=== PATIENT | male | born 1930 | race Caucasian/White ===

== ENCOUNTER 2017-03-12 13:51 | Emergency (ER) | payer MEDICARE, BC ==
--- NOTE | 2017-03-12 14:13 | EDM.PDOC ---
ED HPI GENERAL MEDICAL PROBLEM - General Chief Complaint: Upper Extremity Injury/Pain Stated Complaint: L PINKY FINGER SWELLING Time Seen by Provider: 03/12/17 14:37 Source of Information: Reports: Patient History Limitations: Reports: No Limitations - History of Present Illness INITIAL COMMENTS - FREE TEXT/NARRATIVE: Pt arrived with swelling in the left small finger. He fell this am and jammed the left small finger. Onset: Today Duration: Hour(s): Location: Reports: Upper Extremity, Left Associated Symptoms: Reports: No Other Symptoms, Other ( Pain in left small finger. ) Left Hand Pain Score (Numeric/FACES): 5 - Related Data Allergies Allergy/AdvReac Type Severity Reaction Status Date / Time sulfamethoxazole Allergy Cannot Verified 03/12/17 14:17 [From Bactrim] Remember trimethoprim [From Bactrim] Allergy Cannot Verified 03/12/17 14:17 Remember Home Meds: Home Meds Doxylamine Succinate [Sleep Aid] 25 mg PO BEDTIME PRN 04/12/14 [History] Multivitamin [Multiple Vitamins] 1 each PO DAILY 04/12/14 [History] Propafenone HCl [Propafenone] 150 mg PO TID 04/12/14 [History] Simvastatin [Zocor] 40 mg PO BEDTIME 04/12/14 [History] Albuterol Sulfate [Proair Hfa] 2 puff IH Q2H PRN 02/22/16 [History] Doxazosin [Cardura] 2 mg PO BEDTIME 02/22/16 [History] Past Medical History HEENT History: Reports: Impaired Vision, Other (See Below) Other HEENT History: Wears hearing aids. Cardiovascular History: Reports: Afib, CAD, Heart Failure, High Cholesterol, Hypertension Respiratory History: Reports: Asthma, Sleep Apnea, Other (See Below) Other Respiratory History: Bronchiectasis Genitourinary History: Reports: Chronic Renal Insuffiency Musculoskeletal History: Reports: Osteoarthritis Endocrine/Metabolic History: Reports: Hyperthyroidism - Infectious Disease History Infectious Disease History: Reports: Chicken Pox - Past Surgical History Musculoskeletal Surgical History: Reports: Knee Replacement Social & Family History - Tobacco Use Smoking Status *Q: Former Smoker Years of Tobacco use: 40 Second Hand Smoke Exposure: No - Caffeine Use Caffeine Use: Reports: Coffee - Alcohol Use Days Per Week of Alcohol Use: 0 - Recreational Drug Use Recreational Drug Use: No Review of Systems - Review of Systems Review Of Systems: See Below Constitutional: Reports: No Symptoms Eyes: Reports: No Symptoms Ears: Reports: No Symptoms Nose: Reports: No Symptoms Mouth/Throat: Reports: No Symptoms Respiratory: Reports: No Symptoms Cardiovascular: Reports: No Symptoms GI/Abdominal: Reports: No Symptoms Musculoskeletal: Reports: Other ( Pain in left small finger. ) Skin: Reports: No Symptoms Neurological: Reports: No Symptoms Psychiatric: Reports: No Symptoms ED EXAM, GENERAL - Physical Exam Exam: See Below Free Text/Narrative:: pt fell and injured his left small finger. He has swelling and is having difficulty moving the finger. Exam Limited By: No Limitations General Appearance: Alert, Mild Distress Ears: Normal TMs Nose: Normal Inspection Throat/Mouth: Normal Inspection Head: Atraumatic Neck: Normal Inspection Respiratory/Chest: No Respiratory Distress Cardiovascular: Regular Rate, Rhythm Extremities: Other ( Left small finger is swollen He is very tender at the pp joint. An xray was obtained which showed a fracture of the proximal seond phalanx with dislocation of the fragments. Dr Mandie Allen looked at the xrays and felt like he needed to see a hand surgeon. ) Psychiatric: Normal Affect Course - Vital Signs Last Recorded V/S: Last Vital Signs Temp 36.8 C 03/12/17 14:27 Pulse 67 03/12/17 14:27 Resp 16 03/12/17 14:27 BP 177/75 H 03/12/17 14:27 Pulse Ox 95 03/12/17 14:27 - Re-Assessments/Exams Free Text/Narrative Re-Assessment/Exam: 03/12/17 15:20 xray reveals a fracture of the proximal portiopn of the second phalanx of the left small finger The articulating prtion is fragmented and displaced. The finger was splinted. Departure - Departure Time of Disposition: 15:21 Disposition: Home, Self-Care 01 Condition: Fair Clinical Impression: Finger fracture, left - Discharge Information Referrals: Eris Haynes MD [Primary Care Provider] - Forms: ED Department Discharge Care Plan Goals: tylenol or motrin for pain, elevate hand, cool pack appt with Dr Haskins Hand Surgeon [facility] [place] at [facility]-- 9 am on the .
[2017-03-12 14:28] VITALS: BP 177/75
--- NOTE | 2017-03-12 15:06 | CR ---
Dorsal avulsion fracture at the middle phalanx base. This of the fifth digit. Flexion deformity. Arth ritic change throughout the hands.
== END 2017-03-12 15:44 | disposition home or self-care (01) ==
LOC: JP.ED 13:51
DX: S62.611A Displaced fracture of proximal phalanx of left index finger, initial encounter for closed fracture (principal); I13.0 Hypertensive heart and chronic kidney disease with heart failure and stage 1 through stage 4 chronic kidney disease, or unspecified chronic kidney disease; I50.9 Heart failure, unspecified; N18.9 Chronic kidney disease, unspecified; I48.91 Unspecified atrial fibrillation; J45.909 Unspecified asthma, uncomplicated; Z88.1 Allergy status to other antibiotic agents; Z88.2 Allergy status to sulfonamides; Z79.899 Other long term (current) drug therapy; W23.0XXA Caught, crushed, jammed, or pinched between moving objects, initial encounter; Z87.891 Personal history of nicotine dependence
CPT/HCPCS: 29130; 73140-26-F4; 73140-F4; 99283-25; 99284-25

== ENCOUNTER 2017-06-03 21:46 | Inpatient (IN) | payer MEDICARE, BC ==
[2017-06-03] MEDS ORDERED: Metoprolol Tartrate 50 MG Tab PO ONE (22:05)
[2017-06-03] MEDS ORDERED: Sodium Chloride 0.9% 10 ML Syringe FLUSH PRN (22:06)
--- NOTE | 2017-06-03 22:12 | EDM.PDOC ---
ED HPI GENERAL MEDICAL PROBLEM - General Chief Complaint: Chest Pain Stated Complaint: CHEST PAINS Time Seen by Provider: 06/03/17 21:55 Source of Information: Reports: Patient, Old Records History Limitations: Reports: Other (Very poor, unreliable historian) - History of Present Illness INITIAL COMMENTS - FREE TEXT/NARRATIVE: 87 yo male here with tachycardia of about an hour's duration. Before arrival it was associated with some chest pain. The CP is now gone with resting on the cart. No SOB or diaphoresis or nausea. Has a PHx of afib and CAD. Is not normally in afib, takes propafenone to try to maintain NSR. Has coronary stents. Onset: Today Onset Date: 06/03/17 Onset Time: 21:00 Duration: Minutes: Location: Reports: Chest Quality: Reports: Dull Severity: Mild Improves with: Reports: Rest Worsens with: Reports: Other (uncertain) Context: Reports: Other (Hx of Afib and CAD) Associated Symptoms: Reports: Chest Pain. Denies: Diaphoresis, Fever/Chills, Nausea/Vomiting, Shortness of Breath, Syncope Treatments LINING SETTER: Reports: Other (see below) (none) head/ chest Pain Score (Numeric/FACES): 9 - Related Data Allergies Allergy/AdvReac Type Severity Reaction Status Date / Time sulfamethoxazole Allergy Cannot Verified 06/03/17 21:56 [From Bactrim] Remember trimethoprim [From Bactrim] Allergy Cannot Verified 06/03/17 21:56 Remember Home Meds: Home Meds Doxylamine Succinate [Sleep Aid] 25 mg PO BEDTIME PRN 04/12/14 [History] Multivitamin [Multiple Vitamins] 1 each PO DAILY 04/12/14 [History] Propafenone HCl [Propafenone] 150 mg PO TID 04/12/14 [History] Simvastatin [Zocor] 40 mg PO BEDTIME 04/12/14 [History] Albuterol Sulfate [Proair Hfa] 2 puff IH Q2H PRN 02/22/16 [History] Doxazosin [Cardura] 2 mg PO BEDTIME 02/22/16 [History] Aspirin [Lo-Dose Aspirin EC] 81 mg PO DAILY 06/03/17 [History] Ciprofloxacin/Dexamethasone [Ciprodex Otic Susp] 5 drop EARBOTH BID 06/03/17 [ History] Levothyroxine 25 mcg PO DAILY 06/03/17 [History] Past Medical History HEENT History: Reports: Impaired Vision, Other (See Below) Other HEENT History: Wears hearing aids. Cardiovascular History: Reports: Afib, CAD, Heart Failure, High Cholesterol, Hypertension Respiratory History: Reports: Asthma, Sleep Apnea, Other (See Below) Other Respiratory History: Bronchiectasis Genitourinary History: Reports: Chronic Renal Insuffiency Musculoskeletal History: Reports: Osteoarthritis Endocrine/Metabolic History: Reports: Hyperthyroidism - Infectious Disease History Infectious Disease History: Reports: Chicken Pox - Past Surgical History Musculoskeletal Surgical History: Reports: Knee Replacement Social & Family History - Tobacco Use Smoking Status *Q: Former Smoker Years of Tobacco use: 40 Used Tobacco, but Quit: Yes Month Tobacco Last Used: September Hand Smoke Exposure: No - Caffeine Use Caffeine Use: Reports: Coffee - Alcohol Use Days Per Week of Alcohol Use: 0 - Recreational Drug Use Recreational Drug Use: No ED ROS GENERAL - Review of Systems Review Of Systems: See Below Constitutional: Reports: No Symptoms HEENT: Reports: No Symptoms Respiratory: Reports: No Symptoms Cardiovascular: Reports: Chest Pain, Palpitations Endocrine: Reports: No Symptoms GI/Abdominal: Reports: No Symptoms : Reports: No Symptoms Musculoskeletal: Reports: No Symptoms Skin: Reports: No Symptoms Neurological: Reports: No Symptoms ED EXAM, GENERAL - Physical Exam Exam: See Below Exam Limited By: No Limitations General Appearance: Alert, WD/WN, No Apparent Distress Eye Exam: Bilateral Eye: Normal Inspection Ears: Normal External Exam, Normal Canal, Hearing Grossly Normal, Normal TMs Ear Exam: Bilateral Ear: Auricle Normal, Canal Normal, Other (hearing aids) Nose: Normal Inspection, Normal Mucosa, No Blood Throat/Mouth: Normal Inspection, Normal Lips, Normal Oropharynx, Normal Voice, No Airway Compromise Head: Atraumatic, Normocephalic Neck: Normal Inspection Respiratory/Chest: No Respiratory Distress, Lungs Clear, Normal Breath Sounds, No Accessory Muscle Use Cardiovascular: Regular Rate, Rhythm, Tachycardia GI/Abdominal: Normal Bowel Sounds, Soft, Non-Tender, No Distention Back Exam: Normal Inspection. No: CVA Tenderness (R), CVA Tenderness (L) Extremities: Normal Inspection, Normal Range of Motion, Non-Tender, No Pedal Edema Neurological: Alert, Oriented, CN II-XII Intact, Normal Cognition, No Motor/ Sensory Deficits Psychiatric: Normal Affect, Normal Mood Skin Exam: Warm, Dry, Intact, Normal Color, No Rash Lymphatic: No Adenopathy EKG INTERPRETATION EKG Date: 06/03/17 Time: 21:45 Rhythm: Other (? atrial tachycardia) Rate (Beats/Min): 121 [place]: Normal P-Wave: Variable QRS: Normal ST-T: Depressed QT: Prolonged Comparison: NA - No Prior EKG Course - Vital Signs Text/Narrative:: [id number] Score=5 7.2% risk of Stroke/year Last Recorded V/S: Last Vital Signs Temp 36.2 C 06/04/17 07:43 Pulse 58 L 06/04/17 10:16 Resp 12 06/04/17 07:43 BP 112/61 06/04/17 07:43 Pulse Ox 95 06/04/17 07:43 - Orders/Labs/Meds Orders: Active Orders 24 hr Category Date Time Status Saline Lock Insert [OM.PC] Routine Oth 06/03/17 22:06 Ordered EKG 12 Lead [EK] Routine Ther 06/03/17 21:58 Ordered EKG 12 Lead [EK] Routine Ther 06/03/17 23:03 Ordered Labs: Laboratory Tests 06/03/17 06/03/17 06/03/17 Range/Units 12:00 22:00 22:00 WBC 6.1 (4.5-11.0) K/uL RBC 4.15 L (4.30-5.90) M/uL Hgb 12.8 (12.0-15.0) g/dL Hct 38.1 L (40.0-54.0) % MCV 92 (80-98) fL MCH 31 (27-31) pg MCHC 34 (32-36) % Plt Count 258 (150-400) K/uL D-Dimer, Quantitative (0.0-400.0) ng/mL Sodium 139 L (140-148) mmol/L Potassium 3.8 (3.6-5.2) mmol/L Chloride 105 (100-108) mmol/L Carbon Dioxide 24 (21-32) mmol/L Anion Gap 13.8 (5.0-14.0) mmol/L BUN 21 H (7-18) mg/dL Creatinine 1.5 H (0.8-1.3) mg/dL Est Cr Clr Drug Dosing 29.60 mL/min Estimated GFR (MDRD) 44 L (>60) Glucose 111 H (74-106) mg/dL Calcium 9.0 (8.5-10.1) mg/dL Troponin I < 0.017 < 0.017 (0.000-0.056) ng/mL TSH, Ultra Sensitive 7.363 H (0.358-3.740) uIU/mL 06/03/17 Range/Units 22:00 WBC (4.5-11.0) K/uL RBC (4.30-5.90) M/uL Hgb (12.0-15.0) g/dL Hct (40.0-54.0) % MCV (80-98) fL MCH (27-31) pg MCHC (32-36) % Plt Count (150-400) K/uL D-Dimer, Quantitative 450 H (0.0-400.0) ng/mL Sodium (140-148) mmol/L Potassium (3.6-5.2) mmol/L Chloride (100-108) mmol/L Carbon Dioxide (21-32) mmol/L Anion Gap (5.0-14.0) mmol/L BUN (7-18) mg/dL Creatinine (0.8-1.3) mg/dL Est Cr Clr Drug Dosing mL/min Estimated GFR (MDRD) (>60) Glucose (74-106) mg/dL Calcium (8.5-10.1) mg/dL Troponin I (0.000-0.056) ng/mL TSH, Ultra Sensitive (0.358-3.740) uIU/mL Meds: Medications Discontinued Medications Generic Name Dose Route Start Last Admin Trade Name Freq PRN Reason Stop Dose Admin Acetaminophen 650 mg 06/04/17 02:07 Tylenol PO Q4H PRN Pain (Mild 1-3)/fever Albuterol 2.5 mg 06/04/17 02:07 Proventil Neb Soln NEB Q4H PRN Shortness Of Breath/wheezing Albuterol 0 gm 06/04/17 02:07 Ventolin Hfa INH Q2H PRN Wheezing Aspirin 324 mg 06/03/17 23:32 06/03/17 23:35 Aspirin PO 06/03/17 23:33 324 mg ONETIME ONE Administration Ciprofloxacin 0 ml 06/04/17 09:00 06/04/17 10:14 Ciloxan 0.3% Ophth Soln EARBOTH 2 drop BID KIM Administration Dexamethasone 0 ml 06/04/17 09:00 06/04/17 10:15 Maxidex 0.1% Ophth Susp .XX 2 drop BID KIM Administration Docusate Sodium 100 mg 06/04/17 02:07 Colace PO BID PRN Constipation Doxazosin Mesylate 2 mg 06/04/17 21:00 Cardura PO BEDTIME KIM Enoxaparin Sodium 80 mg 06/03/17 23:31 06/03/17 23:35 Lovenox SUBCUT 06/03/17 23:32 80 mg ONETIME ONE Administration Enoxaparin Sodium 40 mg 06/04/17 20:00 Lovenox SUBCUT DAILY@2000 [facility] Sodium Chloride 1,000 mls @ 100 mls/hr 06/04/17 02:07 06/04/17 03:19 Normal Saline IV 100 mls/hr ASDIRECTED [facility] Administration Levothyroxine Sodium 25 mcg 06/04/17 07:30 06/04/17 07:49 Levothyroxine PO 25 mcg DAILY@0730 [facility] Administration Lorazepam 1 mg 06/04/17 02:07 Ativan IV Q6H PRN Nausea/Vomiting Metoprolol Tartrate 50 mg 06/03/17 22:05 06/03/17 22:09 Lopressor PO 06/03/17 22:06 50 mg ONETIME ONE Administration Metoprolol Tartrate 5 mg 06/03/17 22:28 06/03/17 22:31 Lopressor IVPUSH 06/03/17 22:29 5 mg ONETIME ONE Administration Metoprolol Tartrate 5 mg 06/03/17 22:34 06/03/17 23:09 Lopressor IVPUSH 06/03/17 22:35 5 mg ONETIME ONE Administration Morphine Sulfate 2 mg 06/04/17 02:07 Morphine IVPUSH Q2H PRN Pain (severe 7-10) Multivitamins/Minerals 1 tab 06/04/17 09:00 06/04/17 10:16 Thera M Plus PO 1 tab DAILY [facility] Administration Non-Formulary Medication 25 mg 06/04/17 02:07 Doxylamine Succinate [Sleep Aid] PO BEDTIME PRN Insomnia Ondansetron HCl 4 mg 06/04/17 02:07 Zofran Odt PO Q6H PRN Nausea able to take PO Ondansetron HCl 4 mg 06/04/17 02:07 Zofran IV Q4H PRN Nausea/Vomiting Oxycodone HCl 5 mg 06/04/17 02:07 Oxycodone PO Q4H PRN Pain (moderate 4-6) Pantoprazole Sodium 40 mg 06/04/17 09:00 Protonix Iv IVPUSH 06/04/17 09:30 DAILY@0730 KIM Pantoprazole Sodium 40 mg 06/05/17 07:30 Protonix PO ACBREAKFAST KIM Propafenone HCl 150 mg 06/04/17 09:00 06/04/17 10:16 Rythmol PO 150 mg TID KIM Administration Simvastatin 40 mg 06/04/17 21:00 Zocor PO BEDTIME KIM Sodium Chloride 10 ml 06/03/17 22:06 06/03/17 22:10 Saline Flush FLUSH 10 ml ASDIRECTED PRN Administration Keep Vein Open Departure - Departure Time of Disposition: 00:35 Disposition: Admitted As Inpatient 67 Condition: Fair Clinical Impression: Paroxysmal atrial fibrillation with rapid ventricular response - My Orders Last 24 Hours: My Active Orders 06/03/17 21:58 EKG 12 Lead [EK] Routine 06/03/17 22:06 Saline Lock Insert [OM.PC] Routine 06/03/17 23:03 EKG 12 Lead [EK] Routine - Assessment/Plan Last 24 Hours: My Active Orders 06/03/17 21:58 EKG 12 Lead [EK] Routine 06/03/17 22:06 Saline Lock Insert [OM.PC] Routine 06/03/17 23:03 EKG 12 Lead [EK] Routine
[2017-06-03] MEDS ORDERED: Metoprolol Tartrate 5 MG/5 ML SDV IVPUSH ONE ×2 (22:28→22:34)
[2017-06-03] MEDS ORDERED: Enoxaparin 80 MG/0.8 ML Syringe SUBCUT ONE (23:31)
[2017-06-03] MEDS ORDERED: Aspirin 81 MG Tab.Chew PO ONE (23:32)
--- NOTE | 2017-06-04 01:28 | PCM.HP ---
H&P History of Present Illness - General Admit Problem/Dx: Admission Diagnosis/Problem Admission Diagnosis/Problem Atrial fibrillation Source of Information: Patient, Family (Best friend; Riana), Provider, RN History Limitations: Reports: No Limitations - History of Present Illness Initial Comments - Free Text/Narative: ER review; 87 yo male here with tachycardia of about an hour's duration. Before arrival it was associated with some chest pain. The CP is now gone with resting on the cart. No SOB or diaphoresis or nausea. Has a PHx of afib and CAD. Is not normally in afib, takes propafenone to try to maintain NSR. Has coronary stents placed 20 years ago. Context: Reports: Other (Hx of Afib and CAD) Associated Symptoms: Reports: Chest Pain. Denies: Diaphoresis, Fever/Chills, Nausea/Vomiting, Shortness of Breath, Syncope Treatments HAT CHECKER: Reports: none Pain Score Numeric/FACES: 9 Onset of Symptoms: Reports: Sudden Symptom Onset Date: 06/03/17 Symptom Onset Time: 21:00 Duration of Symptoms: Reports: Hour(s):, Other (resolved after arrival to ER) Location: Reports: Chest (reports fast heart rate with chest pain.) Quality: Reports: Ache Improves with: Reports: None Worsens with: Reports: None Associated Symptoms: Reports: Chest Pain (with fast heart rate) head/ chest Pain Score (Numeric/FACES): 9 - Related Data Allergies/Adverse Reactions: Allergies Allergy/AdvReac Type Severity Reaction Status Date / Time sulfamethoxazole Allergy Cannot Verified 06/03/17 21:56 [From Bactrim] Remember trimethoprim [From Bactrim] Allergy Cannot Verified 06/03/17 21:56 Remember Home Medications: Home Meds Doxylamine Succinate [Sleep Aid] 25 mg PO BEDTIME PRN 04/12/14 [History] Multivitamin [Multiple Vitamins] 1 each PO DAILY 04/12/14 [History] Propafenone HCl [Propafenone] 150 mg PO TID 04/12/14 [History] Simvastatin [Zocor] 40 mg PO BEDTIME 04/12/14 [History] Albuterol Sulfate [Proair Hfa] 2 puff IH Q2H PRN 02/22/16 [History] Doxazosin [Cardura] 2 mg PO BEDTIME 02/22/16 [History] Aspirin [Lo-Dose Aspirin EC] 81 mg PO DAILY 06/03/17 [History] Ciprofloxacin/Dexamethasone [Ciprodex Otic Susp] 5 drop EARBOTH BID 06/03/17 [ History] Levothyroxine [Levothyroxine] 25 mcg PO DAILY 06/03/17 [History] Past Medical History HEENT History: Reports: Impaired Vision, Other (See Below) Other HEENT History: Wears hearing aids. Cardiovascular History: Reports: Afib, CAD, Heart Failure, High Cholesterol, Hypertension Respiratory History: Reports: Asthma, Sleep Apnea, Other (See Below) Other Respiratory History: Bronchiectasis Gastrointestinal History: Reports: Hemorrhoids Genitourinary History: Reports: Chronic Renal Insuffiency Musculoskeletal History: Reports: Osteoarthritis Endocrine/Metabolic History: Reports: Hyperthyroidism - Infectious Disease History Infectious Disease History: Reports: Chicken Pox - Past Surgical History Musculoskeletal Surgical History: Reports: Knee Replacement Social & Family History - Tobacco Use Smoking Status *Q: Former Smoker Years of Tobacco use: 40 Used Tobacco, but Quit: Yes Month Tobacco Last Used: September Second Hand Smoke Exposure: No - Caffeine Use Caffeine Use: Reports: Coffee Caffeine Use Comment: 2-3 cups of coffee daily - Alcohol Use Days Per Week of Alcohol Use: 0 - Recreational Drug Use Recreational Drug Use: No - Living Situation & Occupation Living situation: Reports: , Alone ( of 65 years 2015, still misses her. has two adopt sons. one in [place], one in [facility], he does not have contact with. Lives alone in [place], [place]. 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 wears left hearing aide.) Pulmonary: Reports: No Symptoms Cardiovascular: Reports: No Symptoms Gastrointestinal: Reports: No Symptoms Genitourinary: Reports: No Symptoms Musculoskeletal: Reports: Back Pain (intermittent back spasm/pain, resolves with rest.) Skin: Reports: No Symptoms Psychiatric: Reports: No Symptoms Neurological: Reports: No Symptoms Hematologic/Lymphatic: Reports: No Symptoms Immunologic: Reports: No Symptoms Exam - Exam Exam: See Below - Vital Signs Vital Signs: Last Vital Signs Temp 35.5 C 06/03/17 21:53 Pulse 114 H 06/03/17 23:09 Resp 16 06/04/17 01:20 BP 114/59 L 06/04/17 01:20 Pulse Ox 98 06/04/17 01:20 Weight: 81.7 kg - Exam Quality Assessment: Supplemental Oxygen, DVT Prophylaxis General: Alert, Oriented, Cooperative HEENT: PERRLA, Conjunctiva Clear, Mucosa Moist & [place], Nares Patent, Pupils Equal, Pupils Reactive Neck: Supple, Trachea Midline Lungs: Clear to Auscultation, Normal Respiratory Effort Cardiovascular: Irregular Rhythm GI/Abdominal Exam: Normal Bowel Sounds, Soft, Non-Tender, No Organomegaly, No Distention, No Abnormal Bruit, No Mass (Male) Exam: Deferred Rectal (Males) Exam: Deferred Back Exam: Normal Inspection Extremities: Normal Inspection, Normal Range of Motion, Non-Tender, No Pedal Edema, Normal Capillary Refill Peripheral Pulses: 2+: Dorsalis Pedis (L), Dorsalis Pedis (R) Skin: Warm, Dry, Intact Neurological: Cranial Nerves Intact, Reflexes Equal Bilateral, Strength Equal Bilateral Neuro Extensive - Mental Status: Alert, Oriented x3, Normal Mood/Affect, Normal Cognition Neuro Extensive - Motor, Sensory, Reflexes: Normal Gait (shuffling gait. ) Psychiatric: Alert, Normal Affect, Normal Mood - Patient Data Lab Results Last 24 hrs: Laboratory Results - last 24 hr 06/03/17 06/03/17 06/03/17 Range/Units 12:00 22:00 22:00 WBC 6.1 (4.5-11.0) K/uL RBC 4.15 L (4.30-5.90) M/uL Hgb 12.8 (12.0-15.0) g/dL Hct 38.1 L (40.0-54.0) % MCV 92 (80-98) fL MCH 31 (27-31) pg MCHC 34 (32-36) % Plt Count 258 (150-400) K/uL D-Dimer, Quantitative (0.0-400.0) ng/mL Sodium 139 L (140-148) mmol/L Potassium 3.8 (3.6-5.2) mmol/L Chloride 105 (100-108) mmol/L Carbon Dioxide 24 (21-32) mmol/L Anion Gap 13.8 (5.0-14.0) mmol/L BUN 21 H (7-18) mg/dL Creatinine 1.5 H (0.8-1.3) mg/dL Est Cr Clr Drug Dosing 29.60 mL/min Estimated GFR (MDRD) 44 L (>60) Glucose 111 H (74-106) mg/dL Calcium 9.0 (8.5-10.1) mg/dL Troponin I < 0.017 < 0.017 (0.000-0.056) ng/mL TSH, Ultra Sensitive 7.363 H (0.358-3.740) uIU/mL 06/03/17 Range/Units 22:00 WBC (4.5-11.0) K/uL RBC (4.30-5.90) M/uL Hgb (12.0-15.0) g/dL Hct (40.0-54.0) % MCV (80-98) fL MCH (27-31) pg MCHC (32-36) % Plt Count (150-400) K/uL D-Dimer, Quantitative 450 H (0.0-400.0) ng/mL Sodium (140-148) mmol/L Potassium (3.6-5.2) mmol/L Chloride (100-108) mmol/L Carbon Dioxide (21-32) mmol/L Anion Gap (5.0-14.0) mmol/L BUN (7-18) mg/dL Creatinine (0.8-1.3) mg/dL Est Cr Clr Drug Dosing mL/min Estimated GFR (MDRD) (>60) Glucose (74-106) mg/dL Calcium (8.5-10.1) mg/dL Troponin I (0.000-0.056) ng/mL TSH, Ultra Sensitive (0.358-3.740) uIU/mL Result Diagrams: 06/03/17 22:00 06/03/17 22:00 EKG INTERPRETATION Rhythm: NSR *Q Meaningful Use (ADM) - VTE *Q VTE Criteria *Q: - Stroke *Q Stroke Criteria *Q: - AMI *Q AMI Criteria *Q: - Problem List (1) Atrial fibrillation SNOMED Code(s): 67357930 ICD Code: I48.91 - UNSPECIFIED ATRIAL FIBRILLATION Status: Chronic Priority: High Current Visit: Yes Qualifiers: Atrial fibrillation type: unspecified Qualified Code(s): I48.91 - Unspecified atrial fibrillation (2) Benign essential hypertension SNOMED Code(s): 8325485 ICD Code: I10 - ESSENTIAL (PRIMARY) HYPERTENSION Status: Chronic Priority : Medium Current Visit: No (3) Congestive heart failure (CHF) SNOMED Code(s): 76262081 ICD Code: I50.9 - HEART FAILURE, UNSPECIFIED Status: Chronic Priority: Medium Current Visit: No Qualifiers: Congestive heart failure type: unspecified Congestive heart failure chronicity: unspecified Qualified Code(s): I50.9 - Heart failure, unspecified (4) Coronary artery disease SNOMED Code(s): 37790992 ICD Code: I25.10 - ATHSCL HEART DISEASE OF [place] CORONARY ARTERY W/O ANG PCTRS Status: Chronic Priority: High Current Visit: No (5) CRI (chronic renal insufficiency) SNOMED Code(s): 788323645 ICD Code: N18.9 - CHRONIC KIDNEY DISEASE, UNSPECIFIED Status: Chronic Current Visit: No Problem List Initiated/Reviewed/Updated: Yes Orders Last 24hrs: Active Orders 24 hr Category Date Time Status Patient Status Manage Transfer [TRANSFER] Routine ADT 06/04/17 01:10 Active Cardiac Monitoring [RC] .As Directed Care 06/03/17 21:58 Active EKG Documentation Completion [RC] ASDIRECTED Care 06/03/17 21:58 Active EKG Documentation Completion [RC] ASDIRECTED Care 06/03/17 23:03 Active Sodium Chloride 0.9% [Saline Flush] Med 06/03/17 22:06 Active 10 ml FLUSH ASDIRECTED PRN Saline Lock Insert [OM.PC] Routine Oth 06/03/17 22:06 Ordered Resuscitation Status Routine Resus Stat 06/04/17 01:13 Ordered EKG 12 Lead [EK] Routine Ther 06/03/17 21:58 Ordered EKG 12 Lead [EK] Routine Ther 06/03/17 23:03 Ordered Medication Orders Sodium Chloride (Saline Flush) 10 ml FLUSH ASDIRECTED PRN PRN Reason: Keep Vein Open Last Admin: 06/03/17 22:10 Dose: 10 ml Assessment/Plan Comment:: ssessment/Plan Comment:: Assessment and plan - 87 yo male here with tachycardia of about an hour's duration. Before arrival it was associated with some chest pain. The CP is now gone with resting on the cart. No SOB or diaphoresis or nausea. Has a PHx of afib and CAD. Is not normally in afib, takes propafenone to try to maintain NSR. Has coronary stents placed 20 years ago. In ER, noted to be in Afib with RVR, rate 120's with chest pressure. Given Metoprolol 50mg po, Metoprolol 5mg IV x 2. Rate reduced to 70's-60's the intermittent tachycardia rate of 110's to 120's. given Lovenox 80mg subcut. At time of transfer tele shows sinus rhythm with rate 70's, no further chest pressure. labs; negative troponin x 2. elevated TSH. Plan: admit for monitoring, further evaluation of A-fib. A Fib, Coronary artery disease, CHF, HTN - -close monitoring of vital signs -telemetry -ordered home medication -IV fluids NS 100 ml/hr over night. -am labs: CBC, BMP, TROPONIN, EKG Hypothyroidism -restart Synthyroid 25mcg daily CRI chronic renal insufficiency -cr. 1.5, GFR 29.6, BUN 21 -gentle over night rehydration then re assess in am Maintenance issues - -home meds ordered - DVT prophylaxis - Lovenox 40mg subcut - GI prophylaxis - IV Protonix 40mg - Nutrition - regular diet - Hernandez catheter - not indicated -consult to OT for discharge planning CODE STATUS - FULL Admission justification - This patient will be admitted for inpatient services and is medically appropriate meeting medical necessity for inpatient admission as outlined in my documentation. I reasonably expect the patient will require inpatient services that span a period time over 2 midnights. I reasonably expect this patient to be discharged or transferred within 96 hours [facility]. Disposition - anticipate discharge back to home after the hospital stay Primary care physician - Dr. Haynes Hospitialist: Arturo Méndez M.D.
[2017-06-04] MEDS ORDERED: Ondansetron 4 MG/2 ML SDV IV PRN (02:07)
[2017-06-04] MEDS ORDERED: Docusate Sodium 100 MG Cap PO PRN (02:07)
[2017-06-04] MEDS ORDERED: LORazepam 2 MG/ML MDV IV PRN (02:07)
[2017-06-04] MEDS ORDERED: Albuterol 8 GM Inhaler INH PRN (02:07)
[2017-06-04] MEDS ORDERED: DOXYLAMINE SUCCINATE 25 MG PO PRN (02:07)
[2017-06-04] MEDS ORDERED: Acetaminophen 325 MG Tab PO PRN (02:07)
[2017-06-04] MEDS ORDERED: Morphine 2 MG/ML Syringe IVPUSH PRN (02:07)
[2017-06-04] MEDS ORDERED: Ondansetron 4 MG Tab.DIS PO PRN (02:07)
[2017-06-04] MEDS ORDERED: Albuterol 0.083% 2.5 MG/3 ML Neb Soln NEB PRN (02:07)
[2017-06-04] MEDS ORDERED: oxyCODONE 5 MG Tab PO PRN (02:07)
[2017-06-04] MEDS ORDERED: Sodium Chloride 0.9% 1,000 ML IV SCH (02:07)
[2017-06-04] MEDS ORDERED: Levothyroxine 25 MCG Tab PO SCH (07:30)
[2017-06-04 07:46] VITALS: BP 112/61
--- NOTE | 2017-06-04 08:58 | PCM.DCSUM1 ---
Discharge Summary - Hospital Course Brief History: 87-year-old male with history of remote coronary artery disease and paroxysmal atrial fibrillation who presented with palpitations, chest pain and dizziness. In the emergency room he was in atrial fibrillation with a rapid ventricular response and was admitted for management. - Discharge Data Discharge Date: 06/04/17 Discharge Disposition: Home, Self-Care 01 Condition: Good - Discharge Diagnosis/Problem(s) (1) Paroxysmal atrial fibrillation with rapid ventricular response SNOMED Code(s): 353097613 ICD Code: I48.0 - PAROXYSMAL ATRIAL FIBRILLATION Status: Acute Current Visit: Yes (2) Coronary artery disease SNOMED Code(s): 64843734 ICD Code: I25.10 - ATHSCL HEART DISEASE OF [place] CORONARY ARTERY W/O ANG PCTRS Status: Chronic Priority: High Current Visit: No Qualifiers: Coronary Disease-Associated Artery/Lesion type: [place] artery [place] vs. transplanted heart: [place] heart Associated angina: with unspecified angina Qualified Code(s): I25.119 - Atherosclerotic heart disease of [place] coronary artery with unspecified angina pectoris (3) CKD (chronic kidney disease), stage III SNOMED Code(s): 653683317 ICD Code: N18.3 - CHRONIC KIDNEY DISEASE, STAGE 3 (MODERATE) Status: Chronic Current Visit: Yes - Patient Summary/Data Consults: Consultations 06/04/17 02:07 OT Evaluation and Treatment [CONS] Routine Please Evaluate and Treat. OT Reason for Consult: Discharge Planning This query below is only for informational purposes and is not editable. Hospital Course: Art presented to the emergency room last night with palpitations, chest pressure and dizziness. Workup in the emergency room revealed paroxysmal atrial fibrillation with a rapid ventricular response. He received several doses of metoprolol in the emergency room and did eventually slow down his heart rate. With a slower heart rate he had resolution of the symptoms mentioned above. He remained in atrial fibrillation and the plan was for admission and additional management. Troponin was normal and no strong evidence for ischemia was noted on the EKG. Shortly after admission to the hospital he converted to a normal sinus rhythm. He has remained in this rhythm overnight. Serial troponin levels have been undetectable. Repeat EKG did not show evidence for ischemia. Laboratory studies have all been stable. He has not had recurrence of his symptoms since admission. He has been ambulating in the bates with no symptoms of chest pressure or dyspnea. He feels back to his usual self this morning. I suspect his episode of atrial fibrillation was related to overexertion after a long day of travel yesterday with much more walking than usual to make it to his doctor's appointments. He is asymptomatic with activity at this time. I believe he is safe for discharge to home. He remains in sinus rhythm. He will follow-up as needed if symptoms return. No medication changes were made. Augustine was admitted to inpatient status with the idea that treating his atrial fibrillation and potentially additional workup would require a hospital stay that would span at least 2 midnights. He converted to sinus rhythm shortly after admission and has improved much more quickly than anticipated. He is ready for discharge to home after only a 1 night hospital stay. - Patient Instructions Diet: Heart Healthy Diet Activity: As Tolerated, Rest and Relax Today Driving: May Drive Today Showering/Bathing: May Shower Notify Provider of: Fever, Increased Pain Other/Special Instructions: 1. You were in the hospital for management of paroxysmal atrial fibrillation with a rapid ventricular response. Your heart has returned to a normal rhythm with treatment provided in the emergency room. I suspect the abnormal heart rhythm was caused by activity that was greater than usual yesterday. There was no evidence of a heart attack. I would recommend that you rest and relax today and you may resume your usual activities tomorrow. 2. Continue your usual home medications as previously prescribed. 3. Please seek medical attention if you develop fever greater than 101, you develop chest pain or have significant shortness of breath - Discharge Plan Home Medications: Home Meds Doxylamine Succinate [Sleep Aid] 25 mg PO BEDTIME PRN 04/12/14 [History] Multivitamin [Multiple Vitamins] 1 each PO DAILY 04/12/14 [History] Propafenone HCl [Propafenone] 150 mg PO TID 04/12/14 [History] Simvastatin [Zocor] 40 mg PO BEDTIME 04/12/14 [History] Albuterol Sulfate [Proair Hfa] 2 puff IH Q2H PRN 02/22/16 [History] Doxazosin [Cardura] 2 mg PO BEDTIME 02/22/16 [History] Aspirin [Lo-Dose Aspirin EC] 81 mg PO DAILY 06/03/17 [History] Ciprofloxacin/Dexamethasone [Ciprodex Otic Susp] 5 drop EARBOTH BID 06/03/17 [ History] Levothyroxine 25 mcg PO DAILY 06/03/17 [History] Patient Handouts: Atrial Fibrillation, [id number] Referrals: Eris Haynes MD [Primary Care Provider] - (f/u as needed after the hospital stay) - Discharge Summary/Plan Comment DC Time >30 min.: No (25) - Patient Data Vitals - Most Recent: Last Vital Signs Temp 36.2 C 06/04/17 07:43 Pulse 58 L 06/04/17 07:43 Resp 12 06/04/17 07:43 BP 112/61 06/04/17 07:43 Pulse Ox 95 06/04/17 07:43 Weight - Most Recent: 81.7 kg I&O - Last 24 hours: Intake & Output 06/03/17 06/04/17 06/04/17 22:59 06:59 14:59 Intake Total 260 240 Output Total 200 Balance 260 40 Lab Results - Last 24 hrs: Laboratory Results - last 24 hr 06/04/17 06/04/17 06/04/17 Range/Units 04:00 04:00 04:00 WBC 5.5 (4.5-11.0) K/uL RBC 3.90 L (4.30-5.90) M/uL Hgb 11.7 L (12.0-15.0) g/dL Hct 36.0 L (40.0-54.0) % MCV 92 (80-98) fL MCH 30 (27-31) pg MCHC 33 (32-36) % Plt Count 244 (150-400) K/uL Neut % (Auto) 44 (36-66) % Lymph % (Auto) 30 (24-44) % [place] % (Auto) 13 H (2-6) % Eos % (Auto) 10 H (2-4) % Baso % (Auto) 3 H (0-1) % PT 11.1 (9.5-12.0) sec INR 1.04 (0.80-1.20) Sodium 140 (140-148) mmol/L Potassium 4.0 (3.6-5.2) mmol/L Chloride 108 (100-108) mmol/L Carbon Dioxide 25 (21-32) mmol/L Anion Gap 11.0 (5.0-14.0) mmol/L BUN 24 H (7-18) mg/dL Creatinine 1.4 H (0.8-1.3) mg/dL Est Cr Clr Drug Dosing 31.93 mL/min Estimated GFR (MDRD) 48 L (>60) Glucose 100 (74-106) mg/dL Calcium 8.7 (8.5-10.1) mg/dL Magnesium 2.0 (1.8-2.4) mg/dL Troponin I < 0.017 (0.000-0.056) ng/mL Free T4 (0.76-1.46) ng/dL 06/04/17 Range/Units 08:31 WBC (4.5-11.0) K/uL RBC (4.30-5.90) M/uL Hgb (12.0-15.0) g/dL Hct (40.0-54.0) % MCV (80-98) fL MCH (27-31) pg MCHC (32-36) % Plt Count (150-400) K/uL Neut % (Auto) (36-66) % Lymph % (Auto) (24-44) % [place] % (Auto) (2-6) % Eos % (Auto) (2-4) % Baso % (Auto) (0-1) % PT (9.5-12.0) sec INR (0.80-1.20) Sodium (140-148) mmol/L Potassium (3.6-5.2) mmol/L Chloride (100-108) mmol/L Carbon Dioxide (21-32) mmol/L Anion Gap (5.0-14.0) mmol/L BUN (7-18) mg/dL Creatinine (0.8-1.3) mg/dL Est Cr Clr Drug Dosing mL/min Estimated GFR (MDRD) (>60) Glucose (74-106) mg/dL Calcium (8.5-10.1) mg/dL Magnesium (1.8-2.4) mg/dL Troponin I (0.000-0.056) ng/mL Free T4 0.96 (0.76-1.46) ng/dL Med Orders - Current: Current Medications Acetaminophen (Tylenol) 650 mg PO Q4H PRN PRN Reason: Pain (Mild 1-3)/fever Albuterol (Proventil Neb Soln) 2.5 mg NEB Q4H PRN PRN Reason: Shortness Of Breath/wheezing Albuterol (Ventolin Hfa) 0 gm INH Q2H PRN PRN Reason: Wheezing Ciprofloxacin (Ciloxan 0.3% Ophth Soln) 0 ml EARBOTH BID KIM Dexamethasone (Maxidex 0.1% Ophth Susp) 0 ml .XX BID [facility] Docusate Sodium (Colace) 100 mg PO BID PRN PRN Reason: Constipation Doxazosin Mesylate (Cardura) 2 mg PO BEDTIME [facility] Enoxaparin Sodium (Lovenox) 40 mg SUBCUT DAILY@1999 [facility] Levothyroxine Sodium (Levothyroxine) 25 mcg PO DAILY@729 [facility] Last Admin: 06/04/17 07:49 Dose: 25 mcg Morphine Sulfate (Morphine) 2 mg IVPUSH Q2H PRN PRN Reason: Pain (severe 7-10) Multivitamins/Minerals (Thera M Plus) 1 tab PO DAILY [facility] Non-Formulary Medication (Doxylamine Succinate [Sleep Aid]) 25 mg PO BEDTIME PRN PRN Reason: Insomnia Ondansetron HCl (Zofran Odt) 4 mg PO Q6H PRN PRN Reason: Nausea able to take PO Ondansetron HCl (Zofran) 4 mg IV Q4H PRN PRN Reason: Nausea/Vomiting Oxycodone HCl (Oxycodone) 5 mg PO Q4H PRN PRN Reason: Pain (moderate 4-6) Pantoprazole Sodium (Protonix) 40 mg PO ACBREAKFAST [facility] Propafenone HCl (Rythmol) 150 mg PO TID [facility] Simvastatin (Zocor) 40 mg PO BEDTIME [facility] Sodium Chloride (Saline Flush) 10 ml FLUSH ASDIRECTED PRN PRN Reason: Keep Vein Open Last Admin: 06/03/17 22:10 Dose: 10 ml Discontinued Medications Aspirin (Aspirin) 324 mg PO ONETIME ONE Stop: 06/03/17 23:33 Last Admin: 06/03/17 23:35 Dose: 324 mg Enoxaparin Sodium (Lovenox) 80 mg SUBCUT ONETIME ONE Stop: 06/03/17 23:32 Last Admin: 06/03/17 23:35 Dose: 80 mg Sodium Chloride (Normal Saline) 1,000 mls @ 100 mls/hr IV ASDIRECTED [facility] Last Admin: 06/04/17 03:19 Dose: 100 mls/hr Lorazepam (Ativan) 1 mg IV Q6H PRN PRN Reason: Nausea/Vomiting Metoprolol Tartrate (Lopressor) 50 mg PO ONETIME ONE Stop: 06/03/17 22:06 Last Admin: 06/03/17 22:09 Dose: 50 mg Metoprolol Tartrate (Lopressor) 5 mg IVPUSH ONETIME ONE Stop: 06/03/17 22:29 Last Admin: 06/03/17 22:31 Dose: 5 mg Metoprolol Tartrate (Lopressor) 5 mg IVPUSH ONETIME ONE Stop: 06/03/17 22:35 Last Admin: 06/03/17 23:09 Dose: 5 mg Pantoprazole Sodium (Protonix Iv) 40 mg IVPUSH DAILY@0730 [facility] Stop: 06/04/17 09:30 - Exam Quality Assessment: Denies: Supplemental Oxygen General: Reports: Alert, Oriented, Cooperative, No Acute Distress Lungs: Reports: Normal Respiratory Effort Cardiovascular: Reports: Regular Rate, Regular Rhythm GI/Abdominal Exam: No Distention Extremities: No Pedal Edema Psy/Mental Status: Reports: Alert, Normal Affect *Q Meaningful Use (DIS) - VTE *Q VTE Criteria *Q: - Stroke *Q Stroke Criteria *Q: - AMI *Q AMI Criteria *Q:
[2017-06-04] MEDS ORDERED: Pantoprazole 40 MG Vial IVPUSH SCH (09:00)
[2017-06-04] MEDS ORDERED: Dexamethasone 0.1% Ophth Susp 5 ML Bottle SCH (09:00)
[2017-06-04] MEDS ORDERED: Ciprofloxacin 0.3% Ophth Soln 5 ML Bottle EARBOTH SCH (09:00)
[2017-06-04] MEDS ORDERED: Multivitamins with Iron/Calcium/Folic Acid/Minerals Tab PO SCH (09:00)
[2017-06-04] MEDS ORDERED: Enoxaparin 40 MG/0.4 ML Syringe SUBCUT SCH (20:00)
[2017-06-04] MEDS ORDERED: Simvastatin 20 MG Tab PO SCH (21:00)
[2017-06-04] MEDS ORDERED: Doxazosin 4 MG Tab PO SCH (21:00)
[2017-06-05] MEDS ORDERED: Pantoprazole 40 MG Tab.CR PO SCH (07:30)
== END 2017-06-04 10:45 | disposition home or self-care (01) | DRG 309 ==
LOC: JP.ED 21:46 → JP.MS 06-04 01:10
PROVIDERS: ADMIT Internal Medicine; ATTEND Internal Medicine
DX: I48.0 Paroxysmal atrial fibrillation (principal); I13.0 Hypertensive heart and chronic kidney disease with heart failure and stage 1 through stage 4 chronic kidney disease, or unspecified chronic kidney disease; N18.3 Chronic kidney disease, stage 3 (moderate); I25.119 Atherosclerotic heart disease of native coronary artery with unspecified angina pectoris; Z87.891 Personal history of nicotine dependence; E78.00 Pure hypercholesterolemia, unspecified; E03.9 Hypothyroidism, unspecified; R07.9 Chest pain, unspecified; R00.0 Tachycardia, unspecified; Z95.5 Presence of coronary angioplasty implant and graft; J45.909 Unspecified asthma, uncomplicated; H54.7 Unspecified visual loss; G47.30 Sleep apnea, unspecified; Z96.659 Presence of unspecified artificial knee joint; Z88.8 Allergy status to other drugs, medicaments and biological substances; Z79.82 Long term (current) use of aspirin; I50.9 Heart failure, unspecified
CPT/HCPCS: 36415; 80048; 84443; 84484; 85027; 85379; 93005 ×2; A9270 ×2; J1650; J7050; 83735; 84439; 85025; 85610; 96372; 96374; 96376; 97165-GO; 99285; 99285-25; J3490; J7040

== ENCOUNTER 2017-06-26 15:25 | Emergency (ER) | payer MEDICARE, BC ==
[2017-06-26] MEDS ORDERED: Diltiazem 25 MG/5 ML SDV IVPUSH ONE (15:44)
[2017-06-26] MEDS ORDERED: Sodium Chloride 0.9% 10 ML Syringe FLUSH PRN (15:44)
[2017-06-26 17:34] VITALS: BP 114/60
--- NOTE | 2017-06-26 17:54 | EDM.PDOC ---
ED HPI GENERAL MEDICAL PROBLEM - General Chief Complaint: Chest Pain Stated Complaint: CHEST PAIN Time Seen by Provider: 06/26/17 15:43 Source of Information: Reports: Patient, Other (Dr. Méndez) History Limitations: Reports: No Limitations - History of Present Illness INITIAL COMMENTS - FREE TEXT/NARRATIVE: This patient comes in complaining of chest pain off and on with activity today. Does have a history of atrial fibrillation. He just has very mild chest pain right now. A denies taking any warfarin. Patient had a exercise tolerance test Venkatesh can test yesterday which showed a small reversible defect in the inferior wall. There is a small fixed defect in the anterior septal wall. He was seen about a month ago hospitalized for A. fib which converted spontaneously when was discharged home. He's been seen in the past by Dr. Darling in [place]. This patient was put on propafenone for A. fib control. Chest Pain Score (Numeric/FACES): 10 - Related Data Allergies Allergy/AdvReac Type Severity Reaction Status Date / Time sulfamethoxazole Allergy Cannot Verified 06/25/17 09:31 [From Bactrim] Remember trimethoprim [From Bactrim] Allergy Cannot Verified 06/25/17 09:31 Remember Home Meds: Home Meds Doxylamine Succinate [Sleep Aid] 25 mg PO BEDTIME PRN 04/12/14 [History] Multivitamin [Multiple Vitamins] 1 each PO DAILY 04/12/14 [History] Propafenone HCl [Propafenone] 150 mg PO TID 04/12/14 [History] Simvastatin [Zocor] 40 mg PO BEDTIME 04/12/14 [History] Albuterol Sulfate [Proair Hfa] 2 puff IH Q2H PRN 02/22/16 [History] Doxazosin [Cardura] 2 mg PO BEDTIME 02/22/16 [History] Aspirin [Lo-Dose Aspirin EC] 81 mg PO DAILY 06/03/17 [History] Ciprofloxacin/Dexamethasone [Ciprodex Otic Susp] 5 drop EARBOTH BID 06/03/17 [ History] Levothyroxine 25 mcg PO DAILY 06/03/17 [History] Naproxen [Naprosyn] 375 mg PO DAILY 06/19/17 [History] Past Medical History HEENT History: Reports: Impaired Vision, Other (See Below) Other HEENT History: Wears hearing aids. Cardiovascular History: Reports: Afib, CAD, Heart Failure, High Cholesterol, Hypertension Respiratory History: Reports: Asthma, Sleep Apnea, Other (See Below) Other Respiratory History: Bronchiectasis Gastrointestinal History: Reports: Hemorrhoids Genitourinary History: Reports: Chronic Renal Insuffiency Musculoskeletal History: Reports: Osteoarthritis Endocrine/Metabolic History: Reports: Hyperthyroidism - Infectious Disease History Infectious Disease History: Reports: Measles, Scarlet Fever - Past Surgical History Musculoskeletal Surgical History: Reports: Knee Replacement Dermatological Surgical History: Reports: Skin Biopsy, Skin Graft Social & Family History - Tobacco Use Smoking Status *Q: Former Smoker Years of Tobacco use: 45 Packs/Tins Daily: 1 Used Tobacco, but Quit: Yes Month Tobacco Last Used: Second Hand Smoke Exposure: Yes - Caffeine Use Caffeine Use: Reports: Coffee Caffeine Use Comment: 2-3 cups of coffee daily - Alcohol Use Days Per Week of Alcohol Use: 0 - Recreational Drug Use Recreational Drug Use: No - Living Situation & Occupation Living situation: Reports: , Alone ( of 65 years 2015, still misses her. has two adopt sons. one in [place], one [facility], he does not have contact with. Lives alone in [place], [place]. 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 ED EXAM, GENERAL - Physical Exam Exam: See Below Exam Limited By: No Limitations General Appearance: Alert, WD/WN, No Apparent Distress Eye Exam: Bilateral Eye: Normal Inspection Nose: Normal Inspection Throat/Mouth: Normal Oropharynx Head: Atraumatic Neck: Normal Inspection Respiratory/Chest: Lungs Clear Cardiovascular: Irregularly Irregular (Heart rate running in the 120 up to 1:30 range) Peripheral Pulses: 2+: Radial (L) (Pulse rate is only about 60 or 70 secondary to the A. fib. Monitor showing about 120), Radial (R) GI/Abdominal: Non-Tender Back Exam: Normal Inspection Extremities: Normal Inspection Neurological: Alert, Oriented Course - Vital Signs Last Recorded V/S: Last Vital Signs Temp 36.4 C 06/26/17 16:11 Pulse 70 06/26/17 17:34 Resp 10 L 03/02/18 17:34 BP 114/60 06/26/17 17:34 Pulse Ox 94 L 06/26/17 16:51 - Orders/Labs/Meds Orders: Active Orders 24 hr Category Date Time Status EKG Documentation Completion [RC] ASDIRECTED Care 06/26/17 15:44 Active Sodium Chloride 0.9% [Saline Flush] Med 06/26/17 15:44 Active 10 ml FLUSH ASDIRECTED PRN Saline Lock Insert [OM.PC] Urgent Oth 06/26/17 15:43 Ordered EKG 12 Lead [EK] Urgent Ther 06/26/17 15:43 Ordered Medication Orders Sodium Chloride (Saline Flush) 10 ml FLUSH ASDIRECTED PRN PRN Reason: Keep Vein Open Last Admin: 06/26/17 15:58 Dose: 10 ml Labs: Laboratory Tests 06/26/17 06/26/17 06/26/17 Range/Units 15:54 15:54 15:54 WBC 5.1 (4.5-11.0) K/uL RBC 4.11 L (4.30-5.90) M/uL Hgb 12.2 (12.0-15.0) g/dL Hct 37.5 L (40.0-54.0) % MCV 91 (80-98) fL MCH 30 (27-31) pg MCHC 33 (32-36) % Plt Count 265 (150-400) K/uL Neut % (Auto) 55 (36-66) % Lymph % (Auto) 27 (24-44) % [place] % (Auto) 8 H (2-6) % Eos % (Auto) 8 H (2-4) % Baso % (Auto) 2 H (0-1) % Sodium 142 (140-148) mmol/L Potassium 3.6 (3.6-5.2) mmol/L Chloride 107 (100-108) mmol/L Carbon Dioxide 25 (21-32) mmol/L Anion Gap 10.0 (5.0-14.0) mmol/L BUN 16 (7-18) mg/dL Creatinine 1.6 H (0.8-1.3) mg/dL Est Cr Clr Drug Dosing 27.75 mL/min Estimated GFR (MDRD) 41 L (>60) Glucose 195 H (74-106) mg/dL Calcium 8.6 (8.5-10.1) mg/dL Total Bilirubin 0.3 (0.2-1.0) mg/dL AST 17 (15-37) U/L ALT 24 (12-78) U/L Alkaline Phosphatase 59 (46-116) U/L Troponin I 0.026 (0.000-0.056) ng/mL Total Protein 7.3 (6.4-8.2) g/dL Albumin 2.8 L (3.4-5.0) g/dL Globulin 4.5 H (2.3-3.5) g/dL Albumin/Globulin Ratio 0.6 L (1.2-2.2) TSH, Ultra Sensitive 4.331 H (0.358-3.740) uIU/mL Meds: Medications Generic Name Dose Route Start Last Admin Trade Name Freq PRN Reason Stop Dose Admin Sodium Chloride 10 ml 06/26/17 15:44 06/26/17 15:58 Saline Flush FLUSH 10 ml ASDIRECTED PRN Administration Keep Vein Open Discontinued Medications Generic Name Dose Route Start Last Admin Trade Name Freq PRN Reason Stop Dose Admin Diltiazem HCl 25 mg 06/26/17 15:44 06/26/17 15:57 Diltiazem IVPUSH 06/26/17 15:45 25 mg ONETIME ONE Administration - Re-Assessments/Exams Free Text/Narrative Re-Assessment/Exam: 06/26/17 18:46 EKG shows atrial fibrillation with rapid ventricular response no obvious ischemic changes. An IV was established. He was given diltiazem 25 mg IV and this brought his heart rate down to 70 bpm he was in and out of atrial fibrillation. A troponin came back and was negative I did not think a repeat troponin was needed in this patient. I discussed this with Dr. Méndez who felt that we should contact the cloth colorer since his blood pressure was in the fairly low range. Even after the heart rate was brought down he was a systolic in the 90s eventually that went up to 114. I spoke with Dr. May cloth colorer second butler at [place] and he felt like considering the reversible defect on the right imaging that propathenone Departure - Departure Time of Disposition: 17:52 Disposition: Home, Self-Care 01 Condition: Fair Clinical Impression: Atrial fibrillation with rapid ventricular response Instructions: Atrial Fibrillation, [id number] Referrals: Eris Haynes MD [Primary Care Provider] - Forms: ED Department Discharge Additional Instructions: Stop taking propafenone. Instead take amiodarone 200 mg 2 tablets twice daily for 2 weeks. Do not stop this medication unless your doctor tells you. See Dr. May the cloth colorer in [place] on Thursday morning at 10 AM. Return to the ER at any time if needed - My Orders Last 24 Hours: My Active Orders 06/26/17 15:43 Saline Lock Insert [OM.PC] Urgent EKG 12 Lead [EK] Urgent 06/26/17 15:44 EKG Documentation Completion [RC] ASDIRECTED Sodium Chloride 0.9% [Saline Flush] 10 ml FLUSH ASDIRECTED PRN - Assessment/Plan Last 24 Hours: My Active Orders 06/26/17 15:43 Saline Lock Insert [OM.PC] Urgent EKG 12 Lead [EK] Urgent 06/26/17 15:44 EKG Documentation Completion [RC] ASDIRECTED Sodium Chloride 0.9% [Saline Flush] 10 ml FLUSH ASDIRECTED PRN
== END 2017-06-26 18:48 | disposition home or self-care (01) ==
LOC: JP.ED 15:25
DX: I48.91 Unspecified atrial fibrillation (principal); I13.0 Hypertensive heart and chronic kidney disease with heart failure and stage 1 through stage 4 chronic kidney disease, or unspecified chronic kidney disease; I50.9 Heart failure, unspecified; N18.9 Chronic kidney disease, unspecified; E05.90 Thyrotoxicosis, unspecified without thyrotoxic crisis or storm; Z88.2 Allergy status to sulfonamides; Z88.1 Allergy status to other antibiotic agents; Z79.899 Other long term (current) drug therapy; Z79.82 Long term (current) use of aspirin; Z87.891 Personal history of nicotine dependence
CPT/HCPCS: 36415; 80053; 84443; 84484; 85025; 93005; 96374; 99285; J3490; J7050

== ENCOUNTER 2017-07-31 07:32 | Emergency (ER) | payer MEDICARE, BC ==
[2017-07-31] MEDS ORDERED: Aspirin 81 MG Tab.Chew PO ONE (08:02)
--- NOTE | 2017-07-31 08:13 | EDM.PDOC ---
ED HPI GENERAL MEDICAL PROBLEM - General Chief Complaint: Cardiovascular Problem Stated Complaint: SOB/TIRED Time Seen by Provider: 07/31/17 07:45 Source of Information: Reports: Patient, Old Records, RN Notes Reviewed History Limitations: Reports: No Limitations - History of Present Illness INITIAL COMMENTS - FREE TEXT/NARRATIVE: 87-year-old gentleman presents to the emergency department today with complaint of chest pain. He has a known history of coronary artery disease recently had abnormal stress test in June does have a history of paroxysmal atrial fibrillation, has been evaluated by cardiology underwent echocardiogram on 29 June which did demonstrate left ventricular hypertrophy but good ejection fraction, also underwent cardiac angiograph on July 06 which demonstrated patent vessels no significant disease does have a history of stent I believe in the RCA several years ago. He does have a follow-up appointment with cardiology on the of this month and recently was evaluated by cardiology on 07/15. This morning about 5 AM he had a bout of chest pain there was no nausea or vomiting he did feel short of breath he states he really gets short of breath when he exerts himself please also noticed increased leg swelling - Related Data Allergies Allergy/AdvReac Type Severity Reaction Status Date / Time sulfamethoxazole Allergy Cannot Verified 07/31/17 07:45 [From Bactrim] Remember trimethoprim [From Bactrim] Allergy Cannot Verified 07/31/17 07:45 Remember Home Meds: Home Meds Propafenone HCl [Propafenone] 150 mg PO TID 04/12/14 [History] Simvastatin [Zocor] 40 mg PO DAILY 04/12/14 [History] Doxazosin [Cardura] 2 mg PO BEDTIME 02/22/16 [History] Aspirin [Lo-Dose Aspirin EC] 81 mg PO DAILY 06/03/17 [History] Levothyroxine 25 mcg PO DAILY 06/03/17 [History] Amiodarone [Cordarone] 400 mg PO BID 07/31/17 [History] Rivaroxaban [Xarelto] 1 tab PO BEDTIME 07/31/17 [History] Past Medical History HEENT History: Reports: Hard of Hearing, Impaired Vision, Other (See Below) Other HEENT History: Wears hearing aids. Cardiovascular History: Reports: Afib, CAD, Heart Failure, High Cholesterol, Hypertension Respiratory History: Reports: Asthma, Sleep Apnea, Other (See Below) Other Respiratory History: Bronchiectasis Gastrointestinal History: Reports: Hemorrhoids Genitourinary History: Reports: Chronic Renal Insuffiency Musculoskeletal History: Reports: Osteoarthritis Endocrine/Metabolic History: Reports: Hypothyroidism - Infectious Disease History Infectious Disease History: Reports: Measles, Scarlet Fever - Past Surgical History GI Surgical History: Reports: Other (See Below) Other GI Surgeries/Procedures: "surgery to fix heart burn problem" Musculoskeletal Surgical History: Reports: Knee Replacement Dermatological Surgical History: Reports: Skin Biopsy, Skin Graft Social & Family History - Tobacco Use Smoking Status *Q: Never Smoker Years of Tobacco use: 45 Packs/Tins Daily: 1 Used Tobacco, but Quit: Yes Month/Year Tobacco Last Used: Second Hand Smoke Exposure: Yes - Caffeine Use Caffeine Use: Reports: Coffee Caffeine Use Comment: 2-3 cups of coffee daily - Alcohol Use Days Per Week of Alcohol Use: 0 - Recreational Drug Use Recreational Drug Use: No - Living Situation & Occupation Living situation: Reports: , Alone ( of 65 years 2015, still misses her. has two adopt sons. one in [place], one in [facility], he does not have contact with. Lives alone in [place], [place]. 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 Denies: Palpitations GI/Abdominal: Reports: No Symptoms : Reports: No Symptoms Musculoskeletal: Reports: No Symptoms Skin: Reports: No Symptoms Neurological: Reports: No Symptoms ED EXAM, GENERAL - Physical Exam Exam: See Below General Appearance: Alert, WD/WN, No Apparent Distress Throat/Mouth: Normal Inspection, Normal Lips, Normal Teeth, Normal Gums, Normal Oropharynx, Normal Voice, No Airway Compromise Head: Atraumatic, Normocephalic Neck: Normal Inspection, Supple, Non-Tender, Full Range of Motion Respiratory/Chest: No Respiratory Distress, No Accessory Muscle Use, Crackles ( Bases bilaterally) Cardiovascular: Regular Rate, Rhythm, No Murmur GI/Abdominal: Soft, Non-Tender Extremities: Pedal Edema Course - Vital Signs Last Recorded V/S: Last Vital Signs Temp 97.5 F 07/31/17 07:41 Pulse 58 L 07/31/17 10:20 Resp 15 07/31/17 10:20 BP 133/54 L 07/31/17 10:20 Pulse Ox 98 07/31/17 10:20 - Orders/Labs/Meds Orders: Active Orders 24 hr Category Date Time Status Cardiac Monitoring [RC] .As Directed Care 07/31/17 08:02 Active EKG Documentation Completion [RC] ASDIRECTED Care 07/31/17 08:03 Active EKG 12 Lead [EK] Stat Ther 07/31/17 08:03 Ordered Labs: Laboratory Tests 07/31/17 07/31/17 Range/Units 08:18 08:18 WBC 3.8 L (4.5-11.0) K/uL RBC 2.49 L (4.30-5.90) M/uL Hgb 7.2 L D (12.0-15.0) g/dL Hct 23.5 L (40.0-54.0) % MCV 94 (80-98) fL MCH 29 (27-31) pg MCHC 31 L (32-36) % Plt Count 230 (150-400) K/uL Neut % (Auto) 57 (36-66) % Lymph % (Auto) 24 (24-44) % [place] % (Auto) 12 H (2-6) % Eos % (Auto) 6 H (2-4) % Baso % (Auto) 1 (0-1) % Sodium 142 (140-148) mmol/L Potassium 3.9 (3.6-5.2) mmol/L Chloride 108 (100-108) mmol/L Carbon Dioxide 24 (21-32) mmol/L Anion Gap 10.0 (5.0-14.0) mmol/L BUN 28 H D (7-18) mg/dL Creatinine 1.5 H (0.8-1.3) mg/dL Est Cr Clr Drug Dosing 29.60 mL/min Estimated GFR (MDRD) 44 L (>60) Glucose 108 H (74-106) mg/dL Calcium 8.2 L (8.5-10.1) mg/dL Total Bilirubin 0.2 (0.2-1.0) mg/dL AST 14 L (15-37) U/L ALT 22 (12-78) U/L Alkaline Phosphatase 46 (46-116) U/L CK-MB (CK-2) 1.7 (0-3.6) mg/mL Troponin I < 0.017 (0.000-0.056) ng/mL NT-Pro-B Natriuret Pep 464 H (5-450) pg/mL Total Protein 6.3 L (6.4-8.2) g/dL Albumin 2.8 L (3.4-5.0) g/dL Globulin 3.5 (2.3-3.5) g/dL Albumin/Globulin Ratio 0.8 L (1.2-2.2) Meds: Medications Discontinued Medications Generic Name Dose Route Start Last Admin Trade Name Freq PRN Reason Stop Dose Admin Aspirin 324 mg 07/31/17 08:02 07/31/17 08:20 Aspirin PO 07/31/17 08:03 324 mg ONETIME ONE Administration Departure - Departure Time of Disposition: 10:32 Disposition: DC/Tfer to Acute Hospital 02 Reason for Transfer *Q: Other Condition: Fair Clinical Impression: Dyspnea on exertion, Normochromic anemia, Black stools Referrals: Eris Haynes MD [Primary Care Provider] - Forms: ED Department Discharge Additional Instructions: Please report to the registration desk in the emergency department at [facility] - My Orders Last 24 Hours: My Active Orders 07/31/17 08:02 Cardiac Monitoring [RC] .As Directed 07/31/17 08:03 EKG Documentation Completion [RC] ASDIRECTED EKG 12 Lead [EK] Stat - Assessment/Plan Last 24 Hours: My Active Orders 07/31/17 08:02 Cardiac Monitoring [RC] .As Directed 07/31/17 08:03 EKG Documentation Completion [RC] ASDIRECTED EKG 12 Lead [EK] Stat Plan: Assessment Acuity = acute Site and laterality = normochromic anemia complicating the patient with known history coronary artery disease Etiology = suspicious for upper GI bleed Manifestations = shortness of breath on exertion with chest pain Location of injury = Home Lab values = WBC low at 3.8 consistent leukopenia hemoglobin low at 7.2 consistent with normochromic anemia hemoglobin was 10.0 on July 22 recently started sotalol to creatinine 1.5 consistent chronic renal failure stage G IIIB CK-MB and troponin both negative BNP mildly elevated at 464 albumin low at 2.8 consistent with hypoalbuminemia EKG demonstrates a sinus rhythm no ST changes or depressions similar to prior EKGs, chest x-ray shows no acute process Plan Called and discussed case both with hospitalist Dr. Little and GI specialist Dr. Bernal at [facility], kindly accepted the patient in transport however the patient has refused ambulance transport and insisted on going in private vehicle. This is against my medical advice and he signed paperwork as such This note was dictated using [employer] voice recognition software please call with any questions on syntax or afua.
--- NOTE | 2017-07-31 08:29 | CR ---
Chest 1V Frontal HISTORY: Chest Pain COMPARISON: 03/19/2012 FINDINGS: Lungs appear mildly hyperinflated. No acute infiltrate is identified. Cardiomediastinal silhouette is within normal limits. Atherosclerotic aorta is redemonstrated. No vascular redistribution or pleural fluid can be seen. Bony structures and soft tissues are stable. IMPRESSION: Mild hyperinflation. No acute chest abnormality or significant interval change is identified.
[2017-07-31 10:45] VITALS: BP 121/66
== END 2017-07-31 10:59 ==
LOC: JP.ED 07:32
DX: D64.9 Anemia, unspecified (principal); R19.5 Other fecal abnormalities; R06.09 Other forms of dyspnea; I13.0 Hypertensive heart and chronic kidney disease with heart failure and stage 1 through stage 4 chronic kidney disease, or unspecified chronic kidney disease; I50.9 Heart failure, unspecified; N18.9 Chronic kidney disease, unspecified; E03.9 Hypothyroidism, unspecified; Z88.2 Allergy status to sulfonamides; Z88.1 Allergy status to other antibiotic agents; Z87.891 Personal history of nicotine dependence
CPT/HCPCS: 36415; 71045; 80053; 82553; 83880; 84484; 85025; 93005; 99285; A9270

== ENCOUNTER 2017-08-13 11:29 | Emergency (ER) | payer MEDICARE, BC ==
--- NOTE | 2017-08-13 12:08 | EDM.PDOC ---
ED HPI GENERAL MEDICAL PROBLEM - General Chief Complaint: Gastrointestinal Problem Stated Complaint: LOW BLOOD Time Seen by Provider: 08/13/17 12:06 Source of Information: Reports: Patient History Limitations: Reports: No Limitations - History of Present Illness INITIAL COMMENTS - FREE TEXT/NARRATIVE: PT WAS AT THE CLINIC FOR HIS BLOOD TO BE CHECKED. hE WAS FOUND TO HAVE A HG OF IN THE 6 RANGE. hE WAS SENT TO THE HOSP TO GET BLOOD. 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 Onset: Gradual, Other (pt was seen at the clinic with a hg of 6.2. ) Duration: Hour(s):, Getting Worse Location: Reports: Abdomen Headache Pain Score (Numeric/FACES): 8 - Related Data Allergies Allergy/AdvReac Type Severity Reaction Status Date / Time sulfamethoxazole Allergy Cannot Verified 07/31/17 07:45 [From Bactrim] Remember trimethoprim [From Bactrim] Allergy Cannot Verified 07/31/17 07:45 Remember Home Meds: Home Meds Simvastatin [Zocor] 40 mg PO DAILY 04/12/14 [History] Doxazosin [Cardura] 2 mg PO BEDTIME 02/22/16 [History] Aspirin [Lo-Dose Aspirin EC] 81 mg PO DAILY 06/03/17 [History] Levothyroxine 25 mcg PO DAILY 06/03/17 [History] Amiodarone [Cordarone] 200 mg PO DAILY 07/31/17 [History] Rivaroxaban [Xarelto] 1 tab PO BEDTIME 07/31/17 [History] Pantoprazole [ProTONIX] 40 mg PO BID 08/13/17 [History] Past Medical History HEENT History: Reports: Hard of Hearing, Impaired Vision, Other (See Below) Other HEENT History: Wears hearing aids. Cardiovascular History: Reports: Afib, CAD, Heart Failure, High Cholesterol, Hypertension Respiratory History: Reports: Asthma, Sleep Apnea, Other (See Below) Other Respiratory History: Bronchiectasis Gastrointestinal History: Reports: Hemorrhoids Genitourinary History: Reports: Chronic Renal Insuffiency Musculoskeletal History: Reports: Osteoarthritis Endocrine/Metabolic History: Reports: Hypothyroidism - Infectious Disease History Infectious Disease History: Reports: Measles, Scarlet Fever - Past Surgical History GI Surgical History: Reports: Other (See Below) Other GI Surgeries/Procedures: "surgery to fix heart burn problem" Musculoskeletal Surgical History: Reports: Knee Replacement Dermatological Surgical History: Reports: Skin Biopsy, Skin Graft Social & Family History - Tobacco Use Smoking Status *Q: Never Smoker Years of Tobacco use: 45 Packs/Tins Daily: 1 Used Tobacco, but Quit: Yes Month/Year Tobacco Last Used: Second Hand Smoke Exposure: Yes - Caffeine Use Caffeine Use: Reports: Coffee Caffeine Use Comment: 2-3 cups of coffee daily - Alcohol Use Days Per Week of Alcohol Use: 0 - Recreational Drug Use Recreational Drug Use: No - Living Situation & Occupation Living situation: Reports: , Alone ( of 65 years 2015, still misses her. has two adopt sons. one in [place], one [facility], he does not have contact with. Lives alone in [place], [place]. 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.) ED ROS GENERAL - Review of Systems Review Of Systems: See Below Constitutional: Reports: Weakness, Decreased Appetite HEENT: Reports: No Symptoms Respiratory: Reports: No Symptoms Cardiovascular: Reports: No Symptoms Endocrine: Reports: No Symptoms GI/Abdominal: Reports: Black Stool, Other (black tarry stools) : Reports: No Symptoms Skin: Reports: No Symptoms ED EXAM, GI/ABD - Physical Exam Exam: See Below Text/Narrative:: pt arrived with a history of a hg of 6.2 Exam Limited By: No Limitations General Appearance: Alert, Moderate Distress Ears: Normal TMs Nose: Normal Inspection Throat/Mouth: Normal Inspection Head: Atraumatic Neck: Normal Inspection Respiratory/Chest: No Respiratory Distress, Other (pt gets a little winded with activity. ) Cardiovascular: Regular Rate, Rhythm GI/Abdominal Exam: Soft, Non-Tender (Male) Exam: Deferred Back Exam: Other ( no masses seen, stool did not look real dark ut it did test positive) Extremities: Normal Inspection Neurological: Alert, Oriented, Normal Cognition Psychiatric: Normal Affect Course - Vital Signs Last Recorded V/S: Last Vital Signs Temp 36.4 C 08/13/17 16:45 Pulse 58 L 08/13/17 16:45 Resp 14 08/13/17 16:45 BP 135/54 L 08/13/17 16:45 Pulse Ox 99 08/13/17 16:45 - Orders/Labs/Meds Orders: Active Orders 24 hr Category Date Time Status OCCULT BLOOD DIAGNOSTIC [OP] Stat Lab 08/13/17 12:54 Ordered PATIENT RETYPE [BBK] Stat Lab 08/13/17 12:10 Results RED BLOOD CELLS LP [BBK] Stat Lab 08/13/17 12:10 Results TYPE AND SCREEN [BBK] Stat Lab 08/13/17 12:10 Results Sodium Chloride 0.9% [Normal Saline] 1,000 ml Med 08/13/17 12:15 Active IV ASDIRECTED Medication Orders Sodium Chloride (Normal Saline) 1,000 mls @ 250 mls/hr IV ASDIRECTED KIM Last Admin: 08/13/17 12:31 Dose: 250 mls/hr Labs: Laboratory Tests 08/13/17 08/13/17 Range/Units 12:10 12:10 Sodium 137 L (140-148) mmol/L Potassium 4.1 (3.6-5.2) mmol/L Chloride 102 (100-108) mmol/L Carbon Dioxide 25 (21-32) mmol/L Anion Gap 14.1 H (5.0-14.0) mmol/L BUN 26 H (7-18) mg/dL Creatinine 1.4 H (0.8-1.3) mg/dL Est Cr Clr Drug Dosing 31.71 mL/min Estimated GFR (MDRD) 48 L (>60) Glucose 107 H (74-106) mg/dL Calcium 8.1 L (8.5-10.1) mg/dL Total Bilirubin 0.2 (0.2-1.0) mg/dL AST 14 L (15-37) U/L ALT 24 (12-78) U/L Alkaline Phosphatase 44 L (46-116) U/L Total Protein 6.1 L (6.4-8.2) g/dL Albumin 3.1 L (3.4-5.0) g/dL Globulin 3.0 (2.3-3.5) g/dL Albumin/Globulin Ratio 1.0 L (1.2-2.2) Blood Type A POSITIVE Gel Antibody Screen Negative Crossmatch See Detail Meds: Medications Generic Name Dose Route Start Last Admin Trade Name Freq PRN Reason Stop Dose Admin Sodium Chloride 1,000 mls @ 250 mls/hr 08/13/17 12:15 08/13/17 12:31 Normal Saline IV 250 mls/hr ASDIRECTED KIM Administration Discontinued Medications Generic Name Dose Route Start Last Admin Trade Name Laxmi PRN Reason Stop Dose Admin Factor IX (Pha) 2,500 unit 08/13/17 17:00 Kcentra IVPUSH 08/13/17 17:01 .BOLUS ONE - Re-Assessments/Exams Free Text/Narrative Re-Assessment/Exam: 08/13/17 16:14 pt has been transfused with 2 units of blood. H has not had any further tarry stools since he has been here. He usually has 1-2 stools daily. 08/13/17 17:02 Pt was given Factor 9 2500 units. Departure - Departure Time of Disposition: 16:15 Disposition: Home, Self-Care 01 Condition: Fair Clinical Impression: Anemia, Anemia due to GI blood loss - Discharge Information Referrals: Eris Haynes MD [Primary Care Provider] - Forms: ED Department Discharge Care Plan Goals: transfer to [facility]. - My Orders Last 24 Hours: My Active Orders 08/13/17 12:10 PATIENT RETYPE [BBK] Stat RED BLOOD CELLS LP [BBK] Stat TYPE AND SCREEN [BBK] Stat 08/13/17 12:15 Sodium Chloride 0.9% [Normal Saline] 1,000 ml IV ASDIRECTED 08/13/17 12:54 OCCULT BLOOD DIAGNOSTIC [OP] Stat - Assessment/Plan Last 24 Hours: My Active Orders 08/13/17 12:10 PATIENT RETYPE [BBK] Stat RED BLOOD CELLS LP [BBK] Stat TYPE AND SCREEN [BBK] Stat 08/13/17 12:15 Sodium Chloride 0.9% [Normal Saline] 1,000 ml IV ASDIRECTED 08/13/17 12:54 OCCULT BLOOD DIAGNOSTIC [OP] Stat
[2017-08-13] MEDS ORDERED: Sodium Chloride 0.9% 1,000 ML IV SCH (12:15)
[2017-08-13] MEDS ORDERED: PROTHROMBIN COMPLEX 500 UNIT IVPUSH ONE (17:00)
[2017-08-13 17:57] VITALS: BP 141/65
== END 2017-08-13 18:18 | disposition home or self-care (01) ==
LOC: JP.ED 11:29
DX: D50.0 Iron deficiency anemia secondary to blood loss (chronic) (principal); E78.00 Pure hypercholesterolemia, unspecified; I13.0 Hypertensive heart and chronic kidney disease with heart failure and stage 1 through stage 4 chronic kidney disease, or unspecified chronic kidney disease; I50.9 Heart failure, unspecified; N18.9 Chronic kidney disease, unspecified; E03.9 Hypothyroidism, unspecified; Z79.82 Long term (current) use of aspirin; Z88.2 Allergy status to sulfonamides; Z88.1 Allergy status to other antibiotic agents; Z79.899 Other long term (current) drug therapy; Z87.891 Personal history of nicotine dependence
CPT/HCPCS: 36415; 36430; 80053; 82272; 86850; 86900; 86901; 86920; 86922; 96361; 96374; 99284; C9132; J7040; P9016

== ENCOUNTER 2019-07-08 09:57 | Emergency (ER) | payer MEDICARE ==
[2019-07-08] MEDS ORDERED: Sodium Chloride 0.9% 10 ML Syringe FLUSH PRN (09:59)
--- NOTE | 2019-07-08 10:31 | CT ---
Head wo Cont CLINICAL HISTORY: CVA COMPARISON: MR brain 2012 TECHNIQUE: Transverse scans were obtained from the base of the skull through the vertex without IV contrast on a multislice, multidetector CT scanner. Auto dosage reduction and iterative reconstruction techniques employed. FINDINGS: No focal abnormal parenchymal density is identified. There is no mass effect, hemorrhage, or extraaxial collection. There is scattered lucency in the periventricular and subcortical white matter. The basal cisterns and sulci over the convexities are prominent. The ventricles are prominent. IMPRESSION: Moderate age-related atrophy Chronic ischemic microvascular changes No focal lesion, mass effect or hemorrhage
--- NOTE | 2019-07-08 10:32 | EDM.PDOC ---
ED HPI GENERAL MEDICAL PROBLEM - General Chief Complaint: Neurological Problem Stated Complaint: MEDICAL SENT FROM CLINIC Time Seen by Provider: 07/08/19 10:15 Source of Information: Reports: Patient, Old Records, Provider, RN History Limitations: Reports: No Limitations - History of Present Illness INITIAL COMMENTS - FREE TEXT/NARRATIVE: 89 yo male was in to see Dr. Haynes for a scheduled appt. Patient is not sure what the appt was for today. He [place] and drove himself to the appt. Dr. Haynes sent Ayden to the ER out of concern that he might be having a CVA ? onset timing. Patient has a pHx of intermittent afib and is on ASA. His hospital records suggested he was on Xarelto, but this is not on his clinic notes/list. Ayden himself states he does not feel that there is anything new going on today. Onset: Unknown/Unsure Duration: Other (unknown) Location: Reports: Other (? none) Quality: Reports: Other (no pain) Severity: Mild Improves with: Reports: Other (? resolved before arrival in the ER.) Worsens with: Reports: Other (unknown) Context: Reports: Other (See HPI) Associated Symptoms: Reports: No Other Symptoms Treatments CROTCH BREAKER: Reports: Other (see below) (usual meds) - Related Data Allergies Allergy/AdvReac Type Severity Reaction Status Date / Time sulfamethoxazole Allergy Cannot Verified 07/08/19 10:05 [From Bactrim] Remember trimethoprim [From Bactrim] Allergy Cannot Verified 07/08/19 10:05 Remember Home Meds: Home Meds Simvastatin [Zocor] 40 mg PO DAILY 04/12/14 [History] Doxazosin [Cardura] 2 mg PO BEDTIME 02/22/16 [History] Aspirin [Lo-Dose Aspirin EC] 81 mg PO DAILY 06/03/17 [History] Levothyroxine 25 mcg PO DAILY 06/03/17 [History] Amiodarone [Cordarone] 200 mg PO DAILY 07/31/17 [History] Pantoprazole [ProTONIX] 40 mg PO BID 08/13/17 [History] Rivaroxaban [Xarelto] 15 mg PO DAILY #30 tab 07/08/19 [Rx] Past Medical History HEENT History: Reports: Hard of Hearing, Impaired Vision, Other (See Below) Other HEENT History: Wears hearing aids. Cardiovascular History: Reports: Afib, CAD, Heart Failure, High Cholesterol, Hypertension Respiratory History: Reports: Asthma, Sleep Apnea, Other (See Below) Other Respiratory History: Bronchiectasis Gastrointestinal History: Reports: Hemorrhoids Genitourinary History: Reports: Chronic Renal Insuffiency Musculoskeletal History: Reports: Osteoarthritis Endocrine/Metabolic History: Reports: Hypothyroidism Hematologic History: Reports: Anemia, Blood Transfusion(s) - Infectious Disease History Infectious Disease History: Reports: Measles, Scarlet Fever - Past Surgical History GI Surgical History: Reports: Other (See Below) Other GI Surgeries/Procedures: "surgery to fix heart burn problem" Musculoskeletal Surgical History: Reports: Knee Replacement Dermatological Surgical History: Reports: Skin Biopsy, Skin Graft Social & Family History - Tobacco Use Smoking Status *Q: Never Smoker - Caffeine Use Caffeine Use: Reports: Coffee Caffeine Use Comment: 2-3 cups of coffee daily - Living Situation & Occupation Living situation: Reports: , Alone ( of 65 years 2015, still misses her. has two adopt sons. one in [place], one in [facility], he does not have contact with. Lives alone in [place], [place]. 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.) ED ROS GENERAL - Review of Systems Review Of Systems: See Below Constitutional: Reports: No Symptoms HEENT: Reports: No Symptoms Respiratory: Reports: No Symptoms Cardiovascular: Reports: No Symptoms GI/Abdominal: Reports: No Symptoms : Reports: No Symptoms Musculoskeletal: Reports: No Symptoms Skin: Reports: No Symptoms Neurological: Reports: No Symptoms Psychiatric: Reports: No Symptoms ED EXAM, NEURO - Physical Exam Exam: See Below Exam Limited By: No Limitations General Appearance: Alert, WD/WN, No Apparent Distress, Thin Eye Exam: Bilateral Eye: EOMI, Normal Inspection, PERRL Ears: Normal External Exam, Normal Canal, Hearing Loss Nose: Normal Inspection, No Blood Throat/Mouth: Normal Inspection, Normal Lips, Normal Oropharynx, Normal Voice, No Airway Compromise Head Exam: Atraumatic, Normocephalic Neck: Normal Inspection Respiratory/Chest: No Respiratory Distress, Lungs Clear, Normal Breath Sounds, No Accessory Muscle Use Cardiovascular: No Edema, Irregularly Irregular GI/Abdominal: Normal Bowel Sounds, Soft, Non-Tender, No Distention Neurological: Alert, Normal Mood/Affect, CN II-XII Intact, Normal Plantar Flexion, No Motor/Sensory Deficits, Oriented x 3, Other (is slightly off on a few subjects, but not worse than an average 89 yr old. [facility], [facility] ) Back Exam: Normal Inspection. No: CVA Tenderness (R), CVA Tenderness (L) Extremities: Normal Inspection, Normal Range of Motion, Non-Tender, No Pedal Edema Psychiatric: Normal Affect, Normal Mood Skin Exam: Warm, Dry, Intact, Normal Color, No Rash Course - Vital Signs Last Recorded V/S: Last Vital Signs Temp 36.2 C 07/08/19 10:28 Pulse 63 07/08/19 12:09 Resp 16 07/08/19 12:09 BP 172/80 H 07/08/19 12:09 Pulse Ox 100 07/08/19 12:09 - Orders/Labs/Meds Orders: Active Orders 24 hr Category Date Time Status Cardiac Monitoring [RC] .As Directed Care 07/08/19 09:59 Active Sodium Chloride 0.9% [Saline Flush] Med 07/08/19 09:59 Active 10 ml FLUSH ASDIRECTED PRN Saline Lock Insert [OM.PC] Routine Oth 07/08/19 09:59 Ordered Medication Orders Sodium Chloride (Saline Flush) 10 ml FLUSH ASDIRECTED PRN PRN Reason: Keep Vein Open Labs: Laboratory Tests 07/08/19 07/08/19 07/08/19 Range/Units 10:00 10:14 10:14 WBC 6.8 (4.5-11.0) K/uL RBC 4.23 L (4.30-5.90) M/uL Hgb 12.7 D (12.0-15.0) g/dL Hct 40.4 (40.0-54.0) % MCV 96 (80-98) fL MCH 30 (27-31) pg MCHC 31 L (32-36) % Plt Count 257 (150-400) K/uL Sodium 140 (140-148) mmol/L Potassium 4.4 (3.6-5.2) mmol/L Chloride 105 (100-108) mmol/L Carbon Dioxide 28 (21-32) mmol/L Anion Gap 7.4 (5.0-14.0) mmol/L BUN 27 H (7-18) mg/dL Creatinine 1.8 H (0.8-1.3) mg/dL Est Cr Clr Drug Dosing 26.52 mL/min Estimated GFR (MDRD) 36 L (>60) Glucose 97 (74-106) mg/dL Calcium 9.2 (8.5-10.1) mg/dL Troponin I < 0.017 (0.000-0.056) ng/mL Urine Color Yellow (YELLOW) Urine Appearance Slightly cloudy A (CLEAR) Urine pH 7.0 (5.0-8.0) Ur Specific [place] 1.020 (1.008-1.030) Urine Protein Negative (NEGATIVE) mg/dL Urine Glucose (UA) Negative (NEGATIVE) mg/dL Urine Ketones Negative (NEGATIVE) mg/dL Urine Occult Blood Negative (NEGATIVE) Urine Nitrite Negative (NEGATIVE) Urine Bilirubin Negative (NEGATIVE) Urine Urobilinogen 0.2 (0.2-1.0) EU/dL Ur Leukocyte Esterase Small H (NEGATIVE) Urine RBC Not seen (0-5) Urine WBC 0-5 (0-5) Ur Epithelial Cells Rare Amorphous Sediment Rare Urine Bacteria Few Urine Mucus Rare Meds: Medications Generic Name Dose Route Start Last Admin Trade Name Freq PRN Reason Stop Dose Admin Sodium Chloride 10 ml 07/08/19 09:59 Saline Flush FLUSH ASDIRECTED PRN Keep Vein Open - Radiology Interpretation Free Text/Narrative:: Head CT scan-chronic ischemic microvascular changes. CT Results Date: 07/08/19 - Re-Assessments/Exams Free Text/Narrative Re-Assessment/Exam: 07/08/19 12:11 Dr. Haynes came to the ER to see Ayden because of our lack of finding anything wrong with him. Dr. Haynes agreed that he was back to his baseline. Suggests restarting his Xarelto and then clinic follow up next week. Departure - Departure Time of Disposition: 12:12 Disposition: Home, Self-Care 01 Condition: Fair Clinical Impression: TIA (transient ischemic attack) - Discharge Information *PRESCRIPTION DRUG MONITORING PROGRAM REVIEWED*: Not Applicable *COPY OF PRESCRIPTION DRUG MONITORING REPORT IN PATIENT NAYELI: Not Applicable Instructions: Transient Ischemic Attack, [id number] Referrals: Eris Haynes MD [Primary Care Provider] - Forms: ED Department Discharge Additional Instructions: Take Xarelto 15 mg every day with either breakfast or lunch. Continue all your other medications as before. Make an appt to see Dr. Haynes next week, return here if worse. Sepsis Event Note - Focused Exam Vital Signs: Vital Signs Temp Pulse Resp BP Pulse Ox 07/08/19 12:09 63 16 172/80 H 100 07/08/19 10:28 36.2 C 58 L 14 150/65 H 97 Date Exam was Performed: 07/08/19 Time Exam was Performed: 12:11 - My Orders Last 24 Hours: My Active Orders 07/08/19 09:59 Cardiac Monitoring [RC] .As Directed Sodium Chloride 0.9% [Saline Flush] 10 ml FLUSH ASDIRECTED PRN Saline Lock Insert [OM.PC] Routine - Assessment/Plan Last 24 Hours: My Active Orders 07/08/19 09:59 Cardiac Monitoring [RC] .As Directed Sodium Chloride 0.9% [Saline Flush] 10 ml FLUSH ASDIRECTED PRN Saline Lock Insert [OM.PC] Routine
[2019-07-08 12:10] VITALS: BP 172/80; PULSE 63
[2019-07-08] MEDS ORDERED: Rivaroxaban 15 MG Tab PO ONE (12:30)
== END 2019-07-08 12:45 | disposition home or self-care (01) ==
LOC: JP.ED 09:57
DX: G45.9 Transient cerebral ischemic attack, unspecified (principal); I48.91 Unspecified atrial fibrillation; I25.10 Atherosclerotic heart disease of native coronary artery without angina pectoris; I12.9 Hypertensive chronic kidney disease with stage 1 through stage 4 chronic kidney disease, or unspecified chronic kidney disease; N18.9 Chronic kidney disease, unspecified; E78.00 Pure hypercholesterolemia, unspecified; J45.909 Unspecified asthma, uncomplicated; E03.9 Hypothyroidism, unspecified; Z88.2 Allergy status to sulfonamides; Z88.1 Allergy status to other antibiotic agents; Z79.82 Long term (current) use of aspirin; Z79.899 Other long term (current) drug therapy
CPT/HCPCS: 36415; 70450; 80048; 81001; 84484; 85027; 99284; A9270

== ENCOUNTER 2019-07-29 06:32 | Day surgery (SDC) | payer MEDICARE ==
[2019-07-29] MEDS ORDERED: Lidocaine 1% with EPINEPHrine 1:100,000 50 ML MDV ONE (06:39)
[2019-07-29] MEDS ORDERED: Bacitracin Oint 1 GM U/D Packet ONE (06:39)
[2019-07-29] MEDS ORDERED: Sodium Chloride 0.9% 1,000 ML IV SCH (07:00)
[2019-07-29] MEDS ORDERED: Propofol 200 MG/20 ML SDV ONE (07:46)
[2019-07-29] MEDS ORDERED: fentaNYL 100 MCG/2 ML SDV ONE (07:47)
[2019-07-29] MEDS ORDERED: ceFAZolin 2 GM in Premix Bag 1 BAG IV ONE (07:57)
[2019-07-29 10:55] VITALS: BP 108/50; PULSE 64
--- NOTE | 2019-08-01 08:28 | OR ---
DATE OF PROCEDURE: 07/29/2019 SURGEON: Jaiden Rogers MD PROCEDURE: Bilateral temporal artery biopsy. COMPLICATIONS: None. HEALTH AND SAFETY MANAGER: None. ANESTHETIC: MAC. PREOPERATIVE DIAGNOSIS: Concern for temporal arteritis. POSTOPERATIVE DIAGNOSIS: Concern for temporal arteritis. RISKS: Risks, benefits, alternatives, and limitations including, but not limited to infection, bleeding, and chronic pain, along with false positives and false negatives were explained to the patient, who wished to proceed. PROCEDURE IN DETAIL: The patient was placed in supine position. Left temporal artery was identified first. This was identified using the Doppler ultrasound. A 15 blade was used to make a transverse incision, which was then carried down to the artery, which was identified, mobilized, and suture-ligated. This was then sent for specimen. The wound was then closed with 2 layers of 3-0 Vicryl, a layer of 4-0 Vicryl. The right side was then performed in the same manner, same fashion, same technique, in the same sequence using the same equipment. The dressings were applied. The patient tolerated the procedure well. Jaiden Rogers MD /[id number]
== END 2019-07-29 11:15 | disposition home or self-care (01) ==
LOC: JP.SDS 06:32
PROVIDERS: ATTEND Surgery
DX: M31.6 Other giant cell arteritis (principal); J45.909 Unspecified asthma, uncomplicated; E03.9 Hypothyroidism, unspecified; I13.0 Hypertensive heart and chronic kidney disease with heart failure and stage 1 through stage 4 chronic kidney disease, or unspecified chronic kidney disease; I50.9 Heart failure, unspecified; N18.9 Chronic kidney disease, unspecified; D63.1 Anemia in chronic kidney disease; Z88.1 Allergy status to other antibiotic agents
CPT/HCPCS: 37609; J0690; J2704; J3010; J7030

== ENCOUNTER 2019-09-30 16:43 | Emergency (ER) | payer MEDICARE ==
[2019-09-30] MEDS ORDERED: Meclizine 25 MG Tab PO ONE (17:15)
--- NOTE | 2019-09-30 17:22 | EDM.PDOC ---
ED HPI GENERAL MEDICAL PROBLEM - General Chief Complaint: Syncope Stated Complaint: PASSED OUT Time Seen by Provider: 09/30/19 16:51 Source of Information: Reports: Patient, Family, Old Records History Limitations: Reports: No Limitations - History of Present Illness INITIAL COMMENTS - FREE TEXT/NARRATIVE: 89 yo male with multiple medical problems presents via private vehicle accompanied by his for vertigo and "passing out". His passing out was not witnessed. On one of several of these episodes today he hurt his back, but it is feeling better now. Did not hit his head. Describes spinning sensation with blurred vision, nausea and sweating. Had one diarrheal stool this am. No vomiting or fever. No chest pain. Breathing currently is at baseline. Onset: Today Onset Date: 09/30/19 Duration: Hour(s):, Intermittent, Waxing/Waning Location: Reports: Head Quality: Reports: Other (no pain during spells) Severity: Severe (during the spells, not now) Improves with: Reports: Other (? time) Worsens with: Reports: Other (unknown) Context: Reports: Other (See HPI) Associated Symptoms: Reports: Diaphoresis, Headaches (chronic), Nausea/Vomiting (no vomiting), Syncope (? ). Denies: Chest Pain, Fever/Chills, Rash, Seizure, Shortness of Breath Treatments AUXILIARY ENGINEER: Reports: Other (see below) (none) Head Pain Score (Numeric/FACES): 7 - Related Data Allergies Allergy/AdvReac Type Severity Reaction Status Date / Time sulfamethoxazole Allergy Cannot Verified 09/30/19 17:00 [From Bactrim] Remember trimethoprim [From Bactrim] Allergy Cannot Verified 09/30/19 17:00 Remember Home Meds: Home Meds Simvastatin [Zocor] 40 mg PO DAILY 04/12/14 [History] Doxazosin [Cardura] 2 mg PO BEDTIME 02/22/16 [History] Aspirin [Lo-Dose Aspirin EC] 81 mg PO DAILY 06/03/17 [History] Amiodarone [Cordarone] 200 mg PO BID 07/31/17 [History] Docusate Calcium [Surfak] 240 mg PO DAILY 07/28/19 [History] Meclizine HCl 25 mg PO DAILY 07/28/19 [History] predniSONE [Prednisone] 40 mg PO DAILY 07/28/19 [History] Lutein/Zeaxanthin [Lutein-Zeaxanthin 25-5 mg Sfgl] 1 each PO DAILY 07/29/19 [ History] Acetaminophen [Tylenol] 650 mg PO Q6HR PRN 09/30/19 [History] Furosemide 20 mg PO DAILY 09/30/19 [History] Levothyroxine [Synthroid] 50 mcg PO ACBREAKFAST 09/30/19 [History] Past Medical History HEENT History: Reports: Hard of Hearing, Impaired Vision, Other (See Below) Other HEENT History: Wears hearing aids. Cardiovascular History: Reports: Afib, CAD, Heart Failure, High Cholesterol, Hypertension, Other (See Below) Other Cardiovascular History: CHF Respiratory History: Reports: Asthma, Sleep Apnea, SOB, Other (See Below) Other Respiratory History: Bronchiectasis Gastrointestinal History: Reports: Hemorrhoids, Other (See Below) Other Gastrointestinal History: black stools Genitourinary History: Reports: Chronic Renal Insuffiency, Other (See Below) Other Genitourinary History: stage 3 Musculoskeletal History: Reports: Back Pain, Chronic, Fracture, Osteoarthritis, Other (See Below) Other Musculoskeletal History: right shoulder pain oa Neurological History: Reports: TIA Other Neuro History: on set of headaches Endocrine/Metabolic History: Reports: Hypothyroidism Hematologic History: Reports: Anemia, Blood Transfusion(s) - Infectious Disease History Infectious Disease History: Reports: Other (See Below) Other Infectious Disease History: cant remember - Past Surgical History Cardiovascular Surgical History: Reports: Coronary Artery Stent GI Surgical History: Reports: Other (See Below) Other GI Surgeries/Procedures: "surgery to fix heart burn problem" Musculoskeletal Surgical History: Reports: Knee Replacement Dermatological Surgical History: Reports: Skin Biopsy, Skin Graft Social & Family History - Family History Family Medical History: Noncontributory - Tobacco Use Smoking Status *Q: Former Smoker Used Tobacco, but Quit: Yes Month/Year Tobacco Last Used: 50 year - Caffeine Use Caffeine Use: Reports: Coffee Caffeine Use Comment: 2-3 cups of coffee daily - Recreational Drug Use Recreational Drug Use: No - Living Situation & Occupation Living situation: Reports: , Alone ( of 66 years 2015, still misses her. has two adopt sons. one in [place], one in [facility], he does not have contact with. Lives alone in [place], [place]. 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 Denies: Abdominal Pain, Black Stool, Bloody Stool, Constipation, Distension, Hematemesis, Hematochezia, Melena, Vomiting : Reports: No Symptoms Musculoskeletal: Reports: No Symptoms Skin: Reports: No Symptoms Neurological: Reports: Dizziness, Headache (chronic(temporal arteritis)), Syncope (?) Psychiatric: Reports: No Symptoms ED EXAM, DIZZINESS - Physical Exam Exam: See Below Exam Limited By: No Limitations General Appearance: Alert, WD/WN, No Apparent Distress Eye Exam: Bilateral Eye: Nystagmus (subtle now on rightward gaze), PERRL Nystagmus: worsens with head to R Ears: Normal External Exam, Other (hearing aids bilaterally) Nose: Normal Inspection, No Blood Throat/Mouth: Normal Inspection, Normal Lips, Normal Oropharynx, Normal Voice, No Airway Compromise Head Exam: Atraumatic, Normocephalic Neck: Normal Inspection Respiratory/Chest: No Respiratory Distress, Lungs Clear, Normal Breath Sounds, No Accessory Muscle Use Cardiovascular: Regular Rate, Rhythm, No Edema GI/Abdominal: Normal Bowel Sounds, Soft, Non-Tender, No Distention Neurological: Alert, Normal Mood/Affect, CN II-XII Intact, No Motor/Sensory Deficits, Oriented x 3 Back Exam: Normal Inspection. No: CVA Tenderness (R), CVA Tenderness (L) Extremities: Normal Inspection, Normal Range of Motion, Non-Tender, No Pedal Edema Psychiatric: Normal Affect, Normal Mood Skin Exam: Warm, Dry, Intact, Normal Color, No Rash Course - Vital Signs Last Recorded V/S: Last Vital Signs Temp 36.3 C 09/30/19 17:11 Pulse 58 L 09/30/19 17:11 Resp 16 09/30/19 17:11 BP 151/65 H 09/30/19 17:11 Pulse Ox 96 09/30/19 17:11 Orthostatic Blood Pressure [ 141/66 Standing] Orthostatic Blood Pressure [ 137/73 Sitting] Orthostatic Blood Pressure [ 148/75 Supine] - Orders/Labs/Meds Orders: Active Orders 24 hr Category Date Time Status Cardiac Monitoring [RC] .As Directed Care 09/30/19 17:02 Active Orthostatic Vital Signs [RC] ASDIRECTED Care 09/30/19 17:02 Active UA W/MICROSCOPIC [URIN] Stat Lab 09/30/19 17:02 Ordered Labs: Laboratory Tests 09/30/19 09/30/19 Range/Units 17:13 17:13 WBC 4.5 (4.5-11.0) K/uL RBC 4.04 L (4.30-5.90) M/uL Hgb 11.8 L (12.0-15.0) g/dL Hct 38.7 L (40.0-54.0) % MCV 96 (80-98) fL MCH 29 (27-31) pg MCHC 31 L (32-36) % Plt Count 271 (150-400) K/uL Sodium 140 (140-148) mmol/L Potassium 4.0 (3.6-5.2) mmol/L Chloride 104 (100-108) mmol/L Carbon Dioxide 28 (21-32) mmol/L Anion Gap 7.7 (5.0-14.0) mmol/L BUN 37 H (7-18) mg/dL Creatinine 1.6 H (0.8-1.3) mg/dL Est Cr Clr Drug Dosing TNP Estimated GFR (MDRD) 41 L (>60) Glucose 155 H (74-106) mg/dL Calcium 8.6 (8.5-10.1) mg/dL Troponin I < 0.017 (0.000-0.056) ng/mL Meds: Medications Discontinued Medications Generic Name Dose Route Start Last Admin Trade Name Freq PRN Reason Stop Dose Admin Meclizine HCl 25 mg 09/30/19 17:15 09/30/19 17:24 Antivert PO 09/30/19 17:16 25 mg ONETIME ONE Administration - Re-Assessments/Exams Free Text/Narrative Re-Assessment/Exam: 09/30/19 17:58 Says he feels OK after meclizine. Has more at home. Departure - Departure Time of Disposition: 18:00 Disposition: Home, Self-Care 01 Condition: Fair Clinical Impression: Fall in elderly patient, Vertigo - Discharge Information *PRESCRIPTION DRUG MONITORING PROGRAM REVIEWED*: No *COPY OF PRESCRIPTION DRUG MONITORING REPORT IN PATIENT NAYELI: No Instructions: Fall Prevention in the Home, Adult, [id number] Referrals: Eris Haynes MD [Primary Care Provider] - Forms: ED Department Discharge Additional Instructions: Use your meclizine as directed, every 6 hrs, for vertigo/dizziness. Keep your appt next week to see Dr. Haynes. Use your walker to reduce your risk of falling. Return as needed. Sepsis Event Note - Evaluation Sepsis Screening Result: No Definite Risk - Focused Exam Vital Signs: Vital Signs Temp Pulse Resp BP Pulse Ox 09/30/19 17:11 36.3 C 58 L 16 151/65 H 96 09/30/19 16:59 36.3 C 58 L 16 151/65 H 96 Date Exam was Performed: 09/30/19 Time Exam was Performed: 17:58 - My Orders Last 24 Hours: My Active Orders 09/30/19 17:02 Cardiac Monitoring [RC] .As Directed Orthostatic Vital Signs [RC] ASDIRECTED UA W/MICROSCOPIC [URIN] Stat - Assessment/Plan Last 24 Hours: My Active Orders 09/30/19 17:02 Cardiac Monitoring [RC] .As Directed Orthostatic Vital Signs [RC] ASDIRECTED UA W/MICROSCOPIC [URIN] Stat
[2019-09-30 18:20] VITALS: BP 151/65; PULSE 58
== END 2019-09-30 18:18 | disposition home or self-care (01) ==
LOC: JP.ED 16:43
DX: R42 Dizziness and giddiness (principal); I48.91 Unspecified atrial fibrillation; I25.10 Atherosclerotic heart disease of native coronary artery without angina pectoris; I13.0 Hypertensive heart and chronic kidney disease with heart failure and stage 1 through stage 4 chronic kidney disease, or unspecified chronic kidney disease; I50.9 Heart failure, unspecified; N18.9 Chronic kidney disease, unspecified; J45.909 Unspecified asthma, uncomplicated; M19.90 Unspecified osteoarthritis, unspecified site; E78.00 Pure hypercholesterolemia, unspecified; E03.9 Hypothyroidism, unspecified; Z88.2 Allergy status to sulfonamides; Z87.891 Personal history of nicotine dependence; Z79.82 Long term (current) use of aspirin; Z79.899 Other long term (current) drug therapy; Z88.1 Allergy status to other antibiotic agents
CPT/HCPCS: 36415; 80048; 84484; 85027; 99283; 99284; A9270

== ENCOUNTER 2019-11-26 14:10 | Emergency (ER) | payer MEDICARE ==
[2019-11-26 14:26] VITALS: BP 141/64; PULSE 71
[2019-11-26] MEDS ORDERED: Bacitracin Oint 1 GM U/D Packet TOP ONE (14:56)
--- NOTE | 2019-11-26 14:57 | EDM.PDOC ---
ED HPI GENERAL MEDICAL PROBLEM - General Chief Complaint: General Stated Complaint: FALL Time Seen by Provider: 11/26/19 14:35 Source of Information: Reports: Patient History Limitations: Reports: No Limitations - History of Present Illness INITIAL COMMENTS - FREE TEXT/NARRATIVE: 89-year-old male who took a tumble outside sustaining a superficial skin tear on the lateral aspect of the upper right arm. He tends to fall quite frequently and has several bruises on his extremities that are in different phases of healing but this one is actually bleeding a little from open skin so it concerned him and he wanted to come in and get it patched up. He denies any bony tenderness, head injury, neck pain or shortness of breath. He is fairly confused but that is his baseline. He does have home nursing come in to help him with his medications. Onset: Sudden Duration: Hour(s): (Within the last hour) Location: Reports: Upper Extremity, Right Worsens with: Reports: None Associated Symptoms: Reports: No Other Symptoms - Related Data Allergies Allergy/AdvReac Type Severity Reaction Status Date / Time sulfamethoxazole Allergy Cannot Verified 11/26/19 14:36 [From Bactrim] Remember trimethoprim [From Bactrim] Allergy Cannot Verified 11/26/19 14:36 Remember Home Meds: Home Meds Simvastatin [Zocor] 40 mg PO DAILY 04/12/14 [History] Doxazosin [Cardura] 2 mg PO BEDTIME 02/22/16 [History] Aspirin [Lo-Dose Aspirin EC] 81 mg PO DAILY 06/03/17 [History] Amiodarone [Cordarone] 200 mg PO BID 07/31/17 [History] Docusate Calcium [Surfak] 240 mg PO DAILY 07/28/19 [History] Meclizine HCl 25 mg PO DAILY 07/28/19 [History] predniSONE [Prednisone] 40 mg PO DAILY 07/28/19 [History] Lutein/Zeaxanthin [Lutein-Zeaxanthin 25-5 mg Sfgl] 1 each PO DAILY 07/29/19 [History] Acetaminophen [Tylenol] 650 mg PO Q6HR PRN 09/30/19 [History] Furosemide 20 mg PO DAILY 09/30/19 [History] Levothyroxine [Synthroid] 50 mcg PO ACBREAKFAST 09/30/19 [History] Past Medical History HEENT History: Reports: Hard of Hearing, Impaired Vision, Other (See Below) Other HEENT History: Wears hearing aids. Cardiovascular History: Reports: Afib, CAD, Heart Failure, High Cholesterol, Hypertension, Other (See Below) Other Cardiovascular History: CHF Respiratory History: Reports: Asthma, Sleep Apnea, SOB, Other (See Below) Other Respiratory History: Bronchiectasis Gastrointestinal History: Reports: Hemorrhoids, Other (See Below) Other Gastrointestinal History: black stools Genitourinary History: Reports: Chronic Renal Insuffiency, Other (See Below) Other Genitourinary History: stage 3 Musculoskeletal History: Reports: Back Pain, Chronic, Fracture, Osteoarthritis, Other (See Below) Other Musculoskeletal History: right shoulder pain oa Neurological History: Reports: TIA Other Neuro History: on set of headaches Endocrine/Metabolic History: Reports: Hypothyroidism Hematologic History: Reports: Anemia, Blood Transfusion(s) Immunologic History: Reports: Other (See Below) Other Immunologic History: Temporal arteritis symdrome - Infectious Disease History Infectious Disease History: Reports: Other (See Below) Other Infectious Disease History: cant remember - Past Surgical History Cardiovascular Surgical History: Reports: Coronary Artery Stent GI Surgical History: Reports: Other (See Below) Other GI Surgeries/Procedures: "surgery to fix heart burn problem" Musculoskeletal Surgical History: Reports: Knee Replacement Dermatological Surgical History: Reports: Skin Biopsy, Skin Graft Social & Family History - Family History Family Medical History: Noncontributory - Tobacco Use Smoking Status *Q: Never Smoker - Caffeine Use Caffeine Use: Reports: Coffee Caffeine Use Comment: 2-3 cups of coffee daily - Living Situation & Occupation Living situation: Reports: , Alone ( of 65 years 2015, still misses her. has two adopt sons. one in [place], one in [facility], he does not have contact with. Lives alone in [place], [place]. 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 Denies: Chest Pain GI/Abdominal: Denies: Nausea, Vomiting Skin: Reports: Bruising Neurological: Reports: Weakness. Denies: Headache ED EXAM, GENERAL - Physical Exam Exam: See Below Exam Limited By: No Limitations General Appearance: Alert, No Apparent Distress Eye Exam: Bilateral Eye: EOMI Head: Atraumatic Respiratory/Chest: No Respiratory Distress Cardiovascular: Regular Rate, Rhythm Extremities: Other (Exam of the arms reveals several bruises in various stages of healing, only 1 open wound which is a superficial abrasion and partial skin tear on the lateral aspect of the right arm near the elbow.) Neurological: Alert, Disoriented (Has to concentrate on his answers when asked questions, somewhat confused on time but is oriented to place and person) Course - Vital Signs Last Recorded V/S: Last Vital Signs Temp 97.0 F 11/26/19 14:42 Pulse 71 11/26/19 14:42 Resp 18 11/26/19 14:42 BP 141/64 H 11/26/19 14:42 Pulse Ox 96 11/26/19 14:42 - Orders/Labs/Meds Meds: Medications Discontinued Medications Generic Name Dose Route Start Last Admin Trade Name Laxmi PRN Reason Stop Dose Admin Bacitracin 1 dose 11/26/19 14:56 11/26/19 15:06 Bacitracin Oint 1 Gm TOP 11/26/19 14:57 1 dose ONETIME ONE Administration - Re-Assessments/Exams Free Text/Narrative Re-Assessment/Exam: 11/26/19 14:56 Wound was cleaned, a small amount of bacitracin applied and bandages placed. He can recheck on Thursday. Continue his current medications. Departure - Departure Time of Disposition: 15:24 Disposition: Home, Self-Care 01 Clinical Impression: Abrasion of right upper arm Qualifiers: Encounter type: initial encounter Qualified Code(s): S40.811A - Abrasion of right upper arm, initial encounter Fall Qualifiers: Encounter type: initial encounter Qualified Code(s): W19.XXXA - Unspecified fall, initial encounter - Discharge Information Instructions: Abrasion, [id number] Referrals: PCP,None [Primary Care Provider] - Forms: ED Department Discharge Care Plan Goals: Continue your current medications, keep abrasion clean while healing and recheck next week if not improving satisfactorily. Sepsis Event Note (ED) - Evaluation Sepsis Screening Result: No Definite Risk - Focused Exam Vital Signs: Vital Signs Temp Pulse Resp BP Pulse Ox 11/26/19 14:42 97.0 F 71 18 141/64 H 96 11/26/19 14:25 97.0 F 71 18 141/64 H 96
== END 2019-11-26 15:25 | disposition home or self-care (01) ==
LOC: JP.ED 14:10
DX: S40.811A Abrasion of right upper arm, initial encounter (principal); I13.0 Hypertensive heart and chronic kidney disease with heart failure and stage 1 through stage 4 chronic kidney disease, or unspecified chronic kidney disease; I50.9 Heart failure, unspecified; N18.3 Chronic kidney disease, stage 3 (moderate); E78.00 Pure hypercholesterolemia, unspecified; J45.909 Unspecified asthma, uncomplicated; E03.9 Hypothyroidism, unspecified; I48.91 Unspecified atrial fibrillation; I25.10 Atherosclerotic heart disease of native coronary artery without angina pectoris; Z79.82 Long term (current) use of aspirin; Z79.899 Other long term (current) drug therapy; Z88.1 Allergy status to other antibiotic agents; Z88.2 Allergy status to sulfonamides; Z86.73 Personal history of transient ischemic attack (TIA), and cerebral infarction without residual deficits; W19.XXXA Unspecified fall, initial encounter
CPT/HCPCS: 99282

== ENCOUNTER 2020-01-04 06:10 | Inpatient (IN) | payer MEDICARE ==
--- NOTE | 2020-01-04 06:42 | EDM.PDOC ---
<Eris Hopper - Last Filed: 01/05/20 11:33> ED HPI GENERAL MEDICAL PROBLEM - General Chief Complaint: Lower Extremity Injury/Pain Stated Complaint: FALL VIA NORTH Time Seen by Provider: 01/04/20 06:25 Source of Information: Reports: Patient, EMS History Limitations: Reports: Physical Impairment (Chronic confusion) - History of Present Illness INITIAL COMMENTS - FREE TEXT/NARRATIVE: 89-year-old male brought in by EMS with significant pain in the right hip, right lower extremity and neck. He claims he fell at some point in the night but cannot really elaborate on what happened but says he "hurts real bad". EMS arrived he was in his chair and was unable to stand. I just saw him 1 month ago with skin tears on his arms from falling. He seems more confused this visit. Does not want to open his eyes. Does not complain of any shortness of breath, chest pain or abdominal pain. Onset: Sudden (Injury with some point during the night.) Location: Reports: Head, Neck, Lower Extremity, Right Associated Symptoms: Reports: Confusion Treatments PSYCHOLOGICAL AIDE: Reports: Other (see below) Right Leg Pain Score (Numeric/FACES): 10 - Related Data Allergies Allergy/AdvReac Type Severity Reaction Status Date / Time sulfamethoxazole Allergy Cannot Verified 01/04/20 06:23 [From Bactrim] Remember trimethoprim [From Bactrim] Allergy Cannot Verified 01/04/20 06:23 Remember Home Meds: Home Meds Simvastatin [Zocor] 40 mg PO DAILY 04/12/14 [History] Doxazosin [Cardura] 2 mg PO BEDTIME 02/22/16 [History] Aspirin [Lo-Dose Aspirin EC] 81 mg PO DAILY 06/03/17 [History] Amiodarone [Cordarone] 200 mg PO DAILY 07/31/17 [History] Docusate Calcium [Surfak] 240 mg PO DAILY 07/28/19 [History] Meclizine HCl 25 mg PO DAILY 07/28/19 [History] predniSONE [Prednisone] 20 mg PO BIDAC 07/28/19 [History] Lutein/Zeaxanthin [Lutein-Zeaxanthin 25-5 mg Sfgl] 1 each PO DAILY 07/29/19 [History] Acetaminophen [Tylenol] 650 mg PO Q6HR PRN 09/30/19 [History] Furosemide 20 mg PO DAILY 09/30/19 [History] Levothyroxine [Synthroid] 50 mcg PO ACBREAKFAST 09/30/19 [History] Past Medical History HEENT History: Reports: Hard of Hearing, Impaired Vision, Other (See Below) Other HEENT History: Wears hearing aids. Cardiovascular History: Reports: Afib, CAD, Heart Failure, High Cholesterol, Hypertension, Other (See Below) Other Cardiovascular History: CHF Respiratory History: Reports: Asthma, Sleep Apnea, SOB, Other (See Below) Other Respiratory History: Bronchiectasis Gastrointestinal History: Reports: Hemorrhoids, Other (See Below) Other Gastrointestinal History: black stools Genitourinary History: Reports: Chronic Renal Insuffiency, Other (See Below) Other Genitourinary History: stage 3 Musculoskeletal History: Reports: Back Pain, Chronic, Fracture, Osteoarthritis, Other (See Below) Other Musculoskeletal History: right shoulder pain oa Neurological History: Reports: TIA Other Neuro History: on set of headaches Endocrine/Metabolic History: Reports: Hypothyroidism Hematologic History: Reports: Anemia, Blood Transfusion(s) Immunologic History: Reports: Other (See Below) Other Immunologic History: Temporal arteritis symdrome - Infectious Disease History Infectious Disease History: Reports: Other (See Below) Other Infectious Disease History: cant remember - Past Surgical History Cardiovascular Surgical History: Reports: Coronary Artery Stent GI Surgical History: Reports: Other (See Below) Other GI Surgeries/Procedures: "surgery to fix heart burn problem" Musculoskeletal Surgical History: Reports: Knee Replacement Dermatological Surgical History: Reports: Skin Biopsy, Skin Graft Social & Family History - Family History Family Medical History: Noncontributory - Caffeine Use Caffeine Use: Reports: Coffee Caffeine Use Comment: 2-3 cups of coffee daily - Living Situation & Occupation Living situation: Reports: , Alone ( of 65 years 2015, still misses her. has two adopt sons. [place], [place], he does not have contact with. Lives alone in [place], [place]. 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.) Review of Systems - Review of Systems Review Of Systems: See Below Eyes: Reports: No Symptoms Respiratory: Denies: Shortness of Breath Cardiovascular: Denies: Chest Pain GI/Abdominal: Denies: Abdominal Pain Genitourinary: Reports: No Symptoms Musculoskeletal: Reports: Neck Pain, Leg Pain (Especially right knee and right hip) Skin: Reports: Other (Superficial abrasions on the anterior right lower leg with some erythema) ED EXAM, GENERAL - Physical Exam Exam: See Below Exam Limited By: Physical Impairment (Baseline confusion, slow to respond) General Appearance: Alert Eye Exam: Bilateral Eye: EOMI Head: Atraumatic Neck: Other (Some tenderness with palpation, no focal pain) Respiratory/Chest: No Respiratory Distress GI/Abdominal: Soft, Non-Tender Extremities: Other (No significant asymmetry, shortening or rotation of the lower extremities. He is tender to palpation around the right hip and right knee. Superficial abrasions with erythema on the right thomas. Both legs have 2+ pitting edema) Neurological: Alert, Confused, Slow to Respond Psychiatric: Flat Affect Skin Exam: Other (Somewhat pale) Course - Re-Assessments/Exams Free Text/Narrative Re-Assessment/Exam: 01/04/20 06:50 CBC CMP and CK will be obtained as well as a head neck and pelvis CT, and right knee x-ray. 01/04/20 06:[address] Care turned over to Dr. Davison pending results. 01/04/20 06:54 Patient was given 0.5 mg of IV Dilaudid prior to his x-rays. Departure - Departure Time of Disposition: 09:53 Disposition: Admitted As Inpatient 67 Clinical Impression: Cellulitis of right lower extremity, Fall in elderly patient - Discharge Information Sepsis Event Note (ED) - Evaluation Sepsis Screening Result: No Definite Risk <Morteza Davison - Last Filed: 01/05/20 11:53> Course - Vital Signs Text/Narrative:: Patient will be admitted to the hospital for pneumonia versus cellulitis he certainly is configure in the emergency department. Patient was reassessed here in the a.m. and he appears confused and it is difficult for him to say where his pain is. He does have some redness on the anterior surface of his right leg and this may be the beginning of cellulitis. Patient also seems to possibly have chills. Last Recorded V/S: Last Vital Signs Temp 100.6 F 01/05/20 07:48 Pulse 71 01/05/20 07:48 Resp 20 01/05/20 07:48 BP 104/42 L 01/05/20 07:48 Pulse Ox 100 01/05/20 07:48 - Orders/Labs/Meds Orders: Active Orders 24 hr Category Date Time Status Sodium Chloride 0.9% [Normal Saline] 1,000 ml Med 01/04/20 11:00 Active IV ASDIRECTED Medication Orders Acetaminophen (Tylenol) 650 mg PO Q4H PRN PRN Reason: Pain (Mild 1-3)/fever Acetaminophen (Tylenol) 650 mg RECTAL Q4H PRN PRN Reason: Fever Last Admin: 01/04/20 13:13 Dose: 650 mg Documented by: HENOK Albuterol (Proventil Neb Soln) 2.5 mg NEB Q4H PRN PRN Reason: Shortness Of Breath/wheezing Amiodarone HCl (Cordarone) 200 mg PO DAILY [facility] Last Admin: 01/05/20 10:22 Dose: 200 mg Documented by: CHRISTOPHER Aspirin (Halfprin) 81 mg PO DAILY [facility] Last Admin: 01/05/20 10:21 Dose: 81 mg Documented by: CHRISTOPHER Doxazosin Mesylate (Cardura) 2 mg PO BEDTIME [facility] Last Admin: 01/04/20 22:42 Dose: Not Given Documented by: ARVIN Enoxaparin Sodium (Lovenox) 30 mg SUBCUT DAILY [facility] Last Admin: 01/05/20 08:20 Dose: 30 mg Documented by: CHRISTOPHER Haloperidol (Haldol) 2 mg PO Q4H PRN PRN Reason: mild agitation Haloperidol Lactate (Haldol) 2 mg IVPUSH Q4H PRN PRN Reason: severe agitation Hydromorphone HCl (Dilaudid) 0.5 mg IVPUSH Q2H PRN PRN Reason: Pain Sodium Chloride (Normal Saline) 1,000 mls @ 100 mls/hr IV ASDIRECTED [facility] Last Admin: 01/05/20 01:49 Dose: 100 mls/hr Documented by: Infusion: 01/05/20 01:37 Dose: 100 mls/hr Documented by: Admin: 01/04/20 15:37 Dose: 100 mls/hr Documented by: Infusion: 01/04/20 15:37 Dose: 100 mls/hr Documented by: Admin: 01/04/20 12:04 Dose: 100 mls/hr Documented by: CHRISTOPHER Ceftriaxone Sodium 1 gm/ (Sodium Chloride) 50 mls @ 100 mls/hr IV Q12H [facility] Admin: 01/05/20 08:23 Dose: 100 mls/hr Documented by: Admin: 01/04/20 22:36 Dose: 100 mls/hr Documented by: ARVIN Doxycycline Hyclate 100 mg/ (Sodium Chloride) 100 mls @ 100 mls/hr IV Q12H [facility] Admin: 01/05/20 01:43 Dose: 100 mls/hr Documented by: Admin: 01/04/20 14:05 Dose: 100 mls/hr Documented by: CHRISTOPHER Lactobacillus Rhamnosus (Culturelle) 1 cap PO BID [facility] Admin: 01/05/20 10:21 Dose: 1 cap Documented by: Admin: 01/04/20 22:42 Dose: Not Given Documented by: ARVIN Levothyroxine Sodium (Synthroid) 50 mcg PO ACBREAKFAST [facility] Admin: 01/05/20 08:12 Dose: 50 mcg Documented by: CHRISTOPHER Lorazepam (Ativan) 0.5 mg IVPUSH Q4H PRN PRN Reason: Nausea/Vomiting Magnesium Hydroxide (Milk Of Magnesia) 30 ml PO Q12H PRN PRN Reason: Constipation Melatonin (Melatonin) 9 mg PO BEDTIME [facility] Admin: 01/04/20 22:42 Dose: Not Given Documented by: ARVIN Ondansetron HCl (Zofran) 4 mg IV Q6H PRN PRN Reason: Nausea/Vomiting Ondansetron HCl (Zofran Odt) 4 mg PO Q6H PRN PRN Reason: Nausea able to take PO Oxycodone HCl (Oxycodone) 5 mg PO Q4H PRN PRN Reason: Pain (moderate 4-6) Prednisone (Prednisone) 20 mg PO BIDMEALS [facility] Admin: 01/05/20 11:04 Dose: 20 mg Documented by: Admin: 01/04/20 17:24 Dose: Not Given Documented by: CHRISTOPHER Senna/Docusate Sodium (Senna Plus) 1 tab PO BID PRN PRN Reason: Constipation Labs: Laboratory Tests 01/04/20 01/04/20 01/04/20 Range/Units 06:53 07:17 07:21 WBC 14.8 H (4.5-11.0) K/uL RBC 3.66 L (4.30-5.90) M/uL Hgb 10.7 L (12.0-15.0) g/dL Hct 34.9 L (40.0-54.0) % MCV 95 (80-98) fL MCH 29 (27-31) pg MCHC 31 L (32-36) % Plt Count 296 (150-400) K/uL Neut % (Auto) 84 H (36-66) % Lymph % (Auto) 12 L (24-44) % [place] % (Auto) 4 (2-6) % Eos % (Auto) 0 L (2-4) % Baso % (Auto) 0 (0-1) % Sodium 142 (140-148) mmol/L Potassium 4.0 (3.6-5.2) mmol/L Chloride 104 (100-108) mmol/L Carbon Dioxide 28 (21-32) mmol/L Anion Gap 9.9 (5.0-14.0) mmol/L BUN 35 H (7-18) mg/dL Creatinine 1.6 H (0.8-1.3) mg/dL Est Cr Clr Drug Dosing 27.76 mL/min Estimated GFR (MDRD) 41 L (>60) Glucose 150 H (74-106) mg/dL Lactic Acid 2.6 H (0.4-2.0) mmol/L Calcium 8.8 (8.5-10.1) mg/dL Total Bilirubin 0.3 (0.2-1.0) mg/dL AST 12 L (15-37) U/L ALT 18 (12-78) U/L Alkaline Phosphatase 45 L (46-116) U/L Creatine Kinase 27 L (39-308) U/L Total Protein 7.1 (6.4-8.2) g/dL Albumin 2.9 L (3.4-5.0) g/dL Globulin 4.2 H (2.3-3.5) g/dL Albumin/Globulin Ratio 0.7 L (1.2-2.2) Urine Color (YELLOW) Urine Appearance (CLEAR) Urine pH (5.0-8.0) Ur Specific [place] (1.008-1.030) Urine Protein (NEGATIVE) mg/dL Urine Glucose (UA) (NEGATIVE) mg/dL Urine Ketones (NEGATIVE) mg/dL Urine Occult Blood (NEGATIVE) Urine Nitrite (NEGATIVE) Urine Bilirubin (NEGATIVE) Urine Urobilinogen (0.2-1.0) EU/dL Ur Leukocyte Esterase (NEGATIVE) Urine RBC (0-5) Urine WBC (0-5) Ur Epithelial Cells Amorphous Sediment Urine Bacteria Urine Mucus 01/04/20 Range/Units 08:04 WBC (4.5-11.0) K/uL RBC (4.30-5.90) M/uL Hgb (12.0-15.0) g/dL Hct (40.0-54.0) % MCV (80-98) fL MCH (27-31) pg MCHC (32-36) % Plt Count (150-400) K/uL Neut % (Auto) (36-66) % Lymph % (Auto) (24-44) % [place] % (Auto) (2-6) % Eos % (Auto) (2-4) % Baso % (Auto) (0-1) % Sodium (140-148) mmol/L Potassium (3.6-5.2) mmol/L Chloride (100-108) mmol/L Carbon Dioxide (21-32) mmol/L Anion Gap (5.0-14.0) mmol/L BUN (7-18) mg/dL Creatinine (0.8-1.3) mg/dL Est Cr Clr Drug Dosing mL/min Estimated GFR (MDRD) (>60) Glucose (74-106) mg/dL Lactic Acid (0.4-2.0) mmol/L Calcium (8.5-10.1) mg/dL Total Bilirubin (0.2-1.0) mg/dL AST (15-37) U/L ALT (12-78) U/L Alkaline Phosphatase (46-116) U/L Creatine Kinase (39-308) U/L Total Protein (6.4-8.2) g/dL Albumin (3.4-5.0) g/dL Globulin (2.3-3.5) g/dL Albumin/Globulin Ratio (1.2-2.2) Urine Color Yellow (YELLOW) Urine Appearance Slightly cloudy A (CLEAR) Urine pH 5.5 (5.0-8.0) Ur Specific [place] >= 1.030 (1.008-1.030) Urine Protein Negative (NEGATIVE) mg/dL Urine Glucose (UA) 100 H (NEGATIVE) mg/dL Urine Ketones Negative (NEGATIVE) mg/dL Urine Occult Blood Trace-intact H (NEGATIVE) Urine Nitrite Negative (NEGATIVE) Urine Bilirubin Negative (NEGATIVE) Urine Urobilinogen 0.2 (0.2-1.0) EU/dL Ur Leukocyte Esterase Negative (NEGATIVE) Urine RBC Not seen (0-5) Urine WBC 0-5 (0-5) Ur Epithelial Cells Not seen Amorphous Sediment Not seen Urine Bacteria Moderate Urine Mucus Not seen Meds: Medications Generic Name Dose Route Start Last Admin Trade Name Freq PRN Reason Stop Dose Admin Acetaminophen 650 mg 01/04/20 10:27 Tylenol PO Q4H PRN Pain (Mild 1-3)/fever Acetaminophen 650 mg 01/04/20 13:00 01/04/20 13:13 Tylenol RECTAL 650 mg Q4H PRN Administration Fever Albuterol 2.5 mg 01/04/20 10:27 Proventil Neb Soln NEB Q4H PRN Shortness Of Breath/wheezing Amiodarone HCl 200 mg 01/05/20 09:00 01/05/20 10:22 Cordarone PO 200 mg DAILY KIM Administration Aspirin 81 mg 01/05/20 09:00 01/05/20 10:21 Halfprin PO 81 mg DAILY KIM Administration Doxazosin Mesylate 2 mg 01/04/20 21:00 01/04/20 22:42 Cardura PO Not Given BEDTIME KIM Enoxaparin Sodium 30 mg 01/05/20 09:00 01/05/20 08:20 Lovenox SUBCUT 30 mg DAILY KIM Administration Haloperidol 2 mg 01/04/20 10:27 Haldol PO Q4H PRN mild agitation Haloperidol Lactate 2 mg 01/04/20 10:27 Haldol IVPUSH Q4H PRN severe agitation Hydromorphone HCl 0.5 mg 01/04/20 10:41 Dilaudid IVPUSH Q2H PRN Pain Sodium Chloride 1,000 mls @ 100 mls/hr 01/04/20 11:00 01/05/20 01:49 Normal Saline IV 100 mls/hr ASDIRECTED KIM Administration Ceftriaxone Sodium 1 gm/ 50 mls @ 100 mls/hr 01/04/20 21:00 01/05/20 08:23 Sodium Chloride IV 100 mls/hr Q12H KIM Administration Doxycycline Hyclate 100 mg/ 100 mls @ 100 mls/hr 01/04/20 14:00 01/05/20 01:43 Sodium Chloride IV 100 mls/hr Q12H KIM Administration Lactobacillus Rhamnosus 1 cap 01/04/20 21:00 01/05/20 10:21 Culturelle PO 1 cap BID KIM Administration Levothyroxine Sodium 50 mcg 01/05/20 07:30 01/05/20 08:12 Synthroid PO 50 mcg ACBREAKFAST KIM Administration Lorazepam 0.5 mg 01/04/20 10:27 Ativan IVPUSH Q4H PRN Nausea/Vomiting Magnesium Hydroxide 30 ml 01/04/20 10:27 Milk Of Magnesia PO Q12H PRN Constipation Melatonin 9 mg 01/04/20 21:00 01/04/20 22:42 Melatonin PO Not Given BEDTIME KIM Ondansetron HCl 4 mg 01/04/20 10:27 Zofran IV Q6H PRN Nausea/Vomiting Ondansetron HCl 4 mg 01/04/20 10:27 Zofran Odt PO Q6H PRN Nausea able to take PO Oxycodone HCl 5 mg 01/04/20 10:27 Oxycodone PO Q4H PRN Pain (moderate 4-6) Prednisone 20 mg 01/04/20 17:00 01/05/20 11:04 Prednisone PO 20 mg BIDMEALS KIM Administration Senna/Docusate Sodium 1 tab 01/04/20 10:27 Senna Plus PO BID PRN Constipation Discontinued Medications Generic Name Dose Route Start Last Admin Trade Name Freq PRN Reason Stop Dose Admin Hydromorphone HCl 0.5 mg 01/04/20 06:45 01/04/20 06:49 Dilaudid IVPUSH 01/04/20 06:46 0.5 mg ONETIME ONE Administration Ceftriaxone Sodium 1 gm/ 50 mls @ 100 mls/hr 01/04/20 08:42 01/04/20 08:56 Sodium Chloride IV 01/04/20 09:11 100 mls/hr ONETIME ONE Administration Sodium Chloride 1,000 mls @ 500 mls/hr 01/04/20 09:30 01/04/20 09:50 Normal Saline IV 01/04/20 11:31 500 mls/hr ASDIRECTED KIM Administration Sodium Chloride 1,000 mls @ 999 mls/hr 01/04/20 14:30 01/04/20 14:39 Normal Saline IV 01/04/20 15:31 999 mls/hr ASDIRECTED KIM Administration Ketorolac Tromethamine 15 mg 01/04/20 14:23 01/04/20 14:36 Toradol IVPUSH 01/04/20 14:24 15 mg ONETIME ONE Administration
[2020-01-04] MEDS ORDERED: HYDROmorphone 0.5 MG/0.5 ML Syringe IVPUSH ONE (06:45)
--- NOTE | 2020-01-04 08:31 | CRLCT ---
INDICATION: Pain after acute fall. COMPARISON: None provided. TECHNIQUE: Multi detector imaging of the bony pelvis with axial, coronal and sagittal 2D reformats. FINDINGS: Moderately severe degenerative disk and facet changes in the normally aligned lumbosacral spine. No fracture. Diffuse osteopenia. 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 Moderately severe osteoarthritis of both hips with acetabular and femoral osteophytes. Osteophytes contribute to acetabular over coverage on the right. Mild degenerative arthrosis and dystrophic mineralization of cartilage at the symphysis pubis. Multiple foci of enthesopathic mineralization anterior superior greater than anterior inferior iliac spines, greater trochanters and ischial tuberosities. Large volume of stool through the visualized redundant colon. Fairly large rectal stool ball. No air or fluid in the visualized peritoneum. No dilated small bowel. Normal appendix incompletely visualized. Diffuse moderate atherosclerotic vascular calcification. IMPRESSION: 1. No acute fracture. Osteopenia somewhat limits sensitivity for subtle nondisplaced fracture. If there is ongoing clinical concern, consider bone scan or MRI for characterization. 2. Degenerative changes in the spine, pelvis and hips as discussed. 3. Acute on chronic constipation appearance. 4. Moderately prominent diffuse atherosclerotic disease vascular calcification. Please note that all CT scans at this facility use dose modulation, iterative reconstruction, and/or weight-based dosing when appropriate to reduce radiation dose to as low as reasonably achievable. Dictated by John Santo MD @ Jan 04 2020 8:29AM Signed by Dr. John Santo @ Jan 04 2020 8:29AM
--- NOTE | 2020-01-04 08:33 | CRLCT ---
INDICATION: Trauma, fall. TECHNIQUE: Head CT without contrast. COMPARISON: 07/08/2019 FINDINGS: CSF spaces: Within normal limits for age. Brain parenchyma and extra-axial spaces: There are nonspecific low attenuation white matter changes consistent with chronic microvascular disease. No sign of mass, hemorrhage, or midline shift. Skull base and calvarium: Effusions are present in both mastoid air cells and the left frontal sinus. The visualized orbits are grossly unremarkable. No skull fractures. IMPRESSION: No sign of acute injury.Effusions are present in the left frontal sinus and both mastoid air cells. Dictated by Chase Lazar MD @ 01/04/2020 8:32:40 AM Please note that all CT scans at this facility use dose modulation, iterative reconstruction, and/or weight-based dosing when appropriate to reduce radiation dose to as low as reasonably achievable. Dictated by: Chase Lazar MD @ 01/04/2020 08:32:59 (Electronically Signed)
[2020-01-04] MEDS ORDERED: cefTRIAXone 1 GM in Sodium Chloride 0.9% 50 ML IV ONE (08:42)
--- NOTE | 2020-01-04 08:42 | CRLCT ---
INDICATION: Trauma, fall. TECHNIQUE: CT cervical spine without contrast. COMPARISON: None FINDINGS: Vertebrae: Alignment is normal. There are no fractures or suspicious bony lesions. Discs and facet joints: There are multilevel degenerative changes. Extraspinal findings: Paraspinous soft tissues are unremarkable. IMPRESSION: 1. No sign of acute injury. 2. Multilevel degenerative spondylosis. Dictated by Chase Lazar MD @ 01/04/2020 8:40:40 AM Please note that all CT scans at this facility use dose modulation, iterative reconstruction, and/or weight-based dosing when appropriate to reduce radiation dose to as low as reasonably achievable. Dictated by: Chase Lazar MD @ 01/04/2020 08:40:43 (Electronically Signed)
--- NOTE | 2020-01-04 09:12 | CR ---
CHEST: Portable 01/04/2020 at 07 39 CLINICAL HISTORY:[place] COMPARISON:2018 FINDINGS: Heart is mildly enlarged. Pulmonary vascularity is normal for position. There is some ill-definition of the left hemidiaphragm which may be due to some pleural fluid. No definite infiltrates are seen. There are atherosclerotic changes in the aorta. Impression: Mild cardiomegaly Possible small left pleural effusion. Upright two-view chest recommended when patient's condition allows
--- NOTE | 2020-01-04 09:13 | CR ---
Knee 1V or 2V Rt CLINICAL HISTORY: Fall FINDINGS: No acute fracture or dislocation is noted. There are no osseous lesions. Patient has a total knee arthroplasty. Components appear well seated. Impression: Total right knee arthroplasty appears intact No fracture or osseous lesion
[2020-01-04] MEDS ORDERED: Sodium Chloride 0.9% 1,000 ML IV SCH ×2 (09:30→14:30)
--- NOTE | 2020-01-04 09:43 | PCM.HP.2 ---
H&P History of Present Illness - General Date of Service: 01/04/20 Admit Problem/Dx: Admission Diagnosis/Problem Admission Diagnosis/Problem Cellulitis of right lower extremity Source of Information: Provider. No: Patient History Limitations: Reports: Altered Mental Status - History of Present Illness Initial Comments - Free Text/Narative: CC: confused HPI: Augustine presented to the emergency room by ambulance. We believe he was able to call the ambulance but at this time he is not able to provide any usable history. His last known well as not known to us. He is not able to respond to any questions with any sort of understandable speech. He appears restless but overall appears comfortable. He seemed to indicate to the emergency room physician earlier in the morning that he had some hip pain but at the time of my examination he is not reporting any pain. Work-up in the emergency room has revealed mild leukocytosis and significant evidence for dehydration. Lactic acid is mildly elevated probably from dehydration. He may have an early cellulitis on his right leg. Urine is mildly suggestive of infection. Chest x- ray had a possible left lower lung effusion or infiltrate. He has received antibiotics and cultures have been obtained. He is receiving some fluids. He is going to be admitted for management of presumed cellulitis and dehydration. Right Leg Pain Score (Numeric/FACES): 10 - Related Data Allergies/Adverse Reactions: Allergies Allergy/AdvReac Type Severity Reaction Status Date / Time sulfamethoxazole Allergy Cannot Verified 01/04/20 06:23 [From Bactrim] Remember trimethoprim [From Bactrim] Allergy Cannot Verified 01/04/20 06:23 Remember Home Medications: Home Meds Simvastatin [Zocor] 40 mg PO DAILY 04/12/14 [History] Doxazosin [Cardura] 2 mg PO BEDTIME 02/22/16 [History] Aspirin [Lo-Dose Aspirin EC] 81 mg PO DAILY 06/03/17 [History] Amiodarone [Cordarone] 200 mg PO DAILY 07/31/17 [History] Docusate Calcium [Surfak] 240 mg PO DAILY 07/28/19 [History] Meclizine HCl 25 mg PO DAILY 07/28/19 [History] predniSONE [Prednisone] 20 mg PO BIDAC 07/28/19 [History] Lutein/Zeaxanthin [Lutein-Zeaxanthin 25-5 mg Sfgl] 1 each PO DAILY 07/29/19 [History] Acetaminophen [Tylenol] 650 mg PO Q6HR PRN 09/30/19 [History] Furosemide 20 mg PO DAILY 09/30/19 [History] Levothyroxine [Synthroid] 50 mcg PO ACBREAKFAST 09/30/19 [History] Past Medical History HEENT History: Reports: Hard of Hearing, Impaired Vision, Other (See Below) Other HEENT History: Wears hearing aids. Cardiovascular History: Reports: Afib, CAD, Heart Failure, High Cholesterol, Hypertension, Other (See Below) Other Cardiovascular History: CHF Respiratory History: Reports: Asthma, Sleep Apnea, SOB, Other (See Below) Other Respiratory History: Bronchiectasis Gastrointestinal History: Reports: Hemorrhoids, Other (See Below) Other Gastrointestinal History: black stools Genitourinary History: Reports: Chronic Renal Insuffiency, Other (See Below) Other Genitourinary History: stage 3 Musculoskeletal History: Reports: Back Pain, Chronic, Fracture, Osteoarthritis, Other (See Below) Other Musculoskeletal History: right shoulder pain oa Neurological History: Reports: TIA Other Neuro History: on set of headaches Endocrine/Metabolic History: Reports: Hypothyroidism Hematologic History: Reports: Anemia, Blood Transfusion(s) Immunologic History: Reports: Other (See Below) Other Immunologic History: Temporal arteritis symdrome - Infectious Disease History Infectious Disease History: Reports: Other (See Below) Other Infectious Disease History: cant remember - Past Surgical History Cardiovascular Surgical History: Reports: Coronary Artery Stent GI Surgical History: Reports: Other (See Below) Other GI Surgeries/Procedures: "surgery to fix heart burn problem" Musculoskeletal Surgical History: Reports: Knee Replacement Dermatological Surgical History: Reports: Skin Biopsy, Skin Graft Social & Family History - Family History Family Medical History: Noncontributory - Tobacco Use Smoking Status *Q: Former Smoker Used Tobacco, but Quit: Yes Month/Year Tobacco Last Used: 09/19/1990 - Caffeine Use Caffeine Use: Reports: Coffee Caffeine Use Comment: 2-3 cups of coffee daily - Recreational Drug Use Recreational Drug Use: No - Living Situation & Occupation Living situation: Reports: , Alone ( of 65 years 2015, still misses her. has two adopt sons. one in [place], one in the [facility], he does not have contact with. Lives alone in [place], [place]. 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 No: Oriented, Cooperative HEENT: Conjunctiva Clear. No: Mucosa Moist & [place] (dry), Scleral Icterus Neck: Supple, Trachea Midline. No: Full Range of Motion Lungs: Clear to Auscultation, Normal Respiratory Effort Cardiovascular: Regular Rate, Regular Rhythm. No: Systolic Murmur GI/Abdominal Exam: Normal Bowel Sounds, Soft, Non-Tender, Distended (mild) Back Exam: No: Full Range of Motion, Muscle Spasm Extremities: Pedal Edema, Increased Warmth (right anterior thomas ). No: Joint Swelling, Leg Pain (no hip pain with palpation or movement) Skin: Warm, Dry, Rash (erythema right anterior thomas), Wound (several scabbed lesions right anterior thomsa), Other (small bullae right anterior thomas medial portion of erythema ) Neuro Extensive - Mental Status: Alert, Disorientation to Person, Disorientation to Place, Slow Response to Commands. No: Oriented x3, Memory Intact Neuro Extensive - Motor, Sensory, Reflexes: Dysarthria. No: Facial Palsy (R), Facial palsy (L), Abnormal Motor, Tremor Psychiatric: Alert, Agitated - Patient Data Lab Results Last 24 hrs: Laboratory Results - last 24 hr 01/04/20 01/04/20 01/04/20 Range/Units 06:53 07:17 07:21 WBC 14.8 H (4.5-11.0) K/uL RBC 3.66 L (4.30-5.90) M/uL Hgb 10.7 L (12.0-15.0) g/dL Hct 34.9 L (40.0-54.0) % MCV 95 (80-98) fL MCH 29 (27-31) pg MCHC 31 L (32-36) % Plt Count 296 (150-400) K/uL Neut % (Auto) 84 H (36-66) % Lymph % (Auto) 12 L (24-44) % [place] % (Auto) 4 (2-6) % Eos % (Auto) 0 L (2-4) % Baso % (Auto) 0 (0-1) % Sodium 142 (140-148) mmol/L Potassium 4.0 (3.6-5.2) mmol/L Chloride 104 (100-108) mmol/L Carbon Dioxide 28 (21-32) mmol/L Anion Gap 9.9 (5.0-14.0) mmol/L BUN 35 H (7-18) mg/dL Creatinine 1.6 H (0.8-1.3) mg/dL Est Cr Clr Drug Dosing 27.76 mL/min Estimated GFR (MDRD) 41 L (>60) Glucose 150 H (74-106) mg/dL Lactic Acid 2.6 H (0.4-2.0) mmol/L Calcium 8.8 (8.5-10.1) mg/dL Total Bilirubin 0.3 (0.2-1.0) mg/dL AST 12 L (15-37) U/L ALT 18 (12-78) U/L Alkaline Phosphatase 45 L (46-116) U/L Creatine Kinase 27 L (39-308) U/L Total Protein 7.1 (6.4-8.2) g/dL Albumin 2.9 L (3.4-5.0) g/dL Globulin 4.2 H (2.3-3.5) g/dL Albumin/Globulin Ratio 0.7 L (1.2-2.2) Urine Color (YELLOW) Urine Appearance (CLEAR) Urine pH (5.0-8.0) Ur Specific [place] (1.008-1.030) Urine Protein (NEGATIVE) mg/dL Urine Glucose (UA) (NEGATIVE) mg/dL Urine Ketones (NEGATIVE) mg/dL Urine Occult Blood (NEGATIVE) Urine Nitrite (NEGATIVE) Urine Bilirubin (NEGATIVE) Urine Urobilinogen (0.2-1.0) EU/dL Ur Leukocyte Esterase (NEGATIVE) Urine RBC (0-5) Urine WBC (0-5) Ur Epithelial Cells Amorphous Sediment Urine Bacteria Urine Mucus 09/09/20 Range/Units 08:04 WBC (4.5-11.0) K/uL RBC (4.30-5.90) M/uL Hgb (12.0-15.0) g/dL Hct (40.0-54.0) % MCV (80-98) fL MCH (27-31) pg MCHC (32-36) % Plt Count (150-400) K/uL Neut % (Auto) (36-66) % Lymph % (Auto) (24-44) % [place] % (Auto) (2-6) % Eos % (Auto) (2-4) % Baso % (Auto) (0-1) % Sodium (140-148) mmol/L Potassium (3.6-5.2) mmol/L Chloride (100-108) mmol/L Carbon Dioxide (21-32) mmol/L Anion Gap (5.0-14.0) mmol/L BUN (7-18) mg/dL Creatinine (0.8-1.3) mg/dL Est Cr Clr Drug Dosing mL/min Estimated GFR (MDRD) (>60) Glucose (74-106) mg/dL Lactic Acid (0.4-2.0) mmol/L Calcium (8.5-10.1) mg/dL Total Bilirubin (0.2-1.0) mg/dL AST (15-37) U/L ALT (12-78) U/L Alkaline Phosphatase (46-116) U/L Creatine Kinase (39-308) U/L Total Protein (6.4-8.2) g/dL Albumin (3.4-5.0) g/dL Globulin (2.3-3.5) g/dL Albumin/Globulin Ratio (1.2-2.2) Urine Color Yellow (YELLOW) Urine Appearance Slightly cloudy A (CLEAR) Urine pH 5.5 (5.0-8.0) Ur Specific [place] >= 1.030 (1.008-1.030) Urine Protein Negative (NEGATIVE) mg/dL Urine Glucose (UA) 100 H (NEGATIVE) mg/dL Urine Ketones Negative (NEGATIVE) mg/dL Urine Occult Blood Trace-intact H (NEGATIVE) Urine Nitrite Negative (NEGATIVE) Urine Bilirubin Negative (NEGATIVE) Urine Urobilinogen 0.2 (0.2-1.0) EU/dL Ur Leukocyte Esterase Negative (NEGATIVE) Urine RBC Not seen (0-5) Urine WBC 0-5 (0-5) Ur Epithelial Cells Not seen Amorphous Sediment Not seen Urine Bacteria Moderate Urine Mucus Not seen Result Diagrams: 01/04/20 06:53 01/04/20 07:17 Imaging Impressions Last 24 hrs: I did personally review all of the images from each of the imaging modalities listed below. Chest x-possible small left effusion or infiltrate. Heart size is borderline enlarged. No obvious mass. No changes on the right side. Pelvis CT-no evidence for fracture or dislocation Head CT-no acute intracranial findings Knee [id number] post total knee arthroplasty. No fracture or dislocation. Hardware is well aligned. Sepsis Event Note - Evaluation Sepsis Screening Result: No Definite Risk - Focused Exam Vital Signs: Vital Signs Temp Pulse Resp BP Pulse Ox 01/04/20 08:05 83 16 118/54 L 91 L 01/04/20 06:17 36.3 C 70 20 151/60 H 91 L *Q Meaningful Use (ADM) - VTE *Q VTE Mechanical Contraindications *Q: Bilateral Lower Edema - VTE Risk Assess *Q Each Risk Factor Represents 1 Point: Swollen Legs, Current, Obesity ( BMI > 25 kg/m2), Serious lung disease including pneumonia Total Score 1 Point Risk Factors: 3 Each Risk Factor Represents 2 Points: None Total Score 2 Point Risk Factors: 0 Each Risk Factor Represents 3 Points: Age 75 Years or Greater Total Score 3 Point Risk Factors: 3 Each Risk Factor Represents 5 Points: None Total Score 5 Point Risk Factors: 0 Venous Thromboembolism Risk Factor Score *Q: 6 - Problem List (1) Cellulitis of right lower extremity SNOMED Code(s): 511355928 ICD Code: L03.115 - CELLULITIS OF RIGHT LOWER LIMB Status: Acute Current Visit: Yes (2) Dehydration SNOMED Code(s): 41721318 ICD Code: E86.0 - DEHYDRATION Status: Acute Current Visit: Yes (3) Acute hyperactive delirium due to another medical condition SNOMED Code(s): 1060996, 226165752, 116107977 ICD Code: F05 - DELIRIUM DUE TO KNOWN PHYSIOLOGICAL CONDITION Status: Acute Current Visit: Yes (4) Congestive heart failure (CHF) SNOMED Code(s): 34697950 ICD Code: I50.9 - HEART FAILURE, UNSPECIFIED Status: Chronic Priority: Medium Current Visit: No (5) CKD (chronic kidney disease), stage III SNOMED Code(s): 350855038 ICD Code: N18.3 - CHRONIC KIDNEY DISEASE, STAGE 3 (MODERATE) Status: Chronic Current Visit: No (6) Temporal arteritis SNOMED Code(s): 493893561 ICD Code: M31.6 - OTHER GIANT CELL ARTERITIS Status: Chronic Current Visit: Yes Problem List Initiated/Reviewed/Updated: Yes Orders Last 24hrs: Active Orders 24 hr Category Date Time Status Patient Status Manage Transfer [TRANSFER] Routine ADT 01/04/20 09:29 Ordered Hernandez Catheter Insertion [Insert Urinary Catheter] [OM. Care 01/04/20 08:15 Ordered PC] Q24H Urinary Catheter Assessment [RC] ASDIRECTED Care 01/04/20 08:09 Active CULTURE BLOOD [BC] Urgent Lab 01/04/20 07:40 Received CULTURE BLOOD [BC] Urgent Lab 01/04/20 07:50 Received CULTURE URINE [RM] Urgent Lab 01/04/20 08:04 Received Sodium Chloride 0.9% [Normal Saline] 1,000 ml Med 01/04/20 09:30 Active IV ASDIRECTED Sodium Chloride 0.9% [Normal Saline] 1,000 ml Med 01/04/20 11:00 Active IV ASDIRECTED Blood Culture x2 Reflex Set [OM.PC] Urgent Oth 01/04/20 07:13 Ordered Resuscitation Status Routine Resus Stat 01/04/20 09:30 Ordered Medication Orders Sodium Chloride (Normal Saline) 1,000 mls @ 500 mls/hr IV ASDIRECTED KIM Stop: 01/04/20 11:31 Sodium Chloride (Normal Saline) 1,000 mls @ 100 mls/hr IV ASDIRECTED KIM Assessment/Plan Comment:: ASSESSMENT AND PLAN - Cellulitis of right lower extremity-this seems to be the most likely source of infection though urinalysis mildly suggestive of infection and chest x-ray could suggest subtle infiltrate. Cultures have been obtained. He did receive ceftriaxone. He does have leukocytosis. Infection could explain confusion and weakness. Lactic acid is mildly elevated but I think it is more related to dehydration and sepsis. -Antibiotic coverage with ceftriaxone and doxycycline -Follow-up cultures -IV fluids -Pain control Hyperactive delirium-patient appears restless and mildly agitated. Probably related to infection and dehydration as discussed above. -Treat infection as above -Melatonin at bedtime -Haldol for significant agitation Stage III chronic kidney disease-slight increase in creatinine probably related to dehydration. I would expect that this will improve with hydration. Congestive heart failure-he does have some swelling but does not appear to be decompensated. I think the swelling could be related to his prednisone use as well. -Continue medical management Temporal arteritis-he is still on high-dose prednisone. -Continue prednisone Maintenance issues - - DVT prophylaxis -enoxaparin - GI prophylaxis -not indicated - Nutrition -n.p.o. until mental status improves - Hernandez catheter - not indicated CODE STATUS - Full Code Admission justification -this patient will be admitted for inpatient services and is medically appropriate meeting medical necessity for inpatient admission as outlined in my documentation. I reasonably expect the patient will require inpatient services that span a period time over 2 midnights. I reasonably expect this patient to be discharged or transferred within 96 hours [facility]. Disposition -I would anticipate discharge to a [facility]entiary facility after the hospital stay Primary care physician -Dr Eris Méndez M.D. - Mortality Measure Prognosis:: Good
[2020-01-04] MEDS ORDERED: Haloperidol 1 MG Tab PO PRN (10:27)
[2020-01-04] MEDS ORDERED: oxyCODONE 5 MG Tab PO PRN (10:27)
[2020-01-04] MEDS ORDERED: Ondansetron 4 MG Tab.DIS PO PRN (10:27)
[2020-01-04] MEDS ORDERED: Ondansetron 4 MG/2 ML SDV IV PRN (10:27)
[2020-01-04] MEDS ORDERED: LORazepam 2 MG/ML SDV IVPUSH PRN (10:27)
[2020-01-04] MEDS ORDERED: Haloperidol Lactate 5 MG/ML SDV IVPUSH PRN (10:27)
[2020-01-04] MEDS ORDERED: Albuterol 0.083% 2.5 MG/3 ML Neb Soln NEB PRN (10:27)
[2020-01-04] MEDS ORDERED: HYDROmorphone 0.5 MG/0.5 ML Syringe IVPUSH PRN (10:41)
[2020-01-04] MEDS: Sodium Chloride 0.9% 1,000 ML IV SCH ×2 (12:04→15:37)
[2020-01-04] MEDS ORDERED: Acetaminophen 650 MG Supp RECTAL PRN (13:00)
[2020-01-04] MEDS: Doxycycline 100 MG in Sodium Chloride 0.9% 100 ML IV SCH (14:05)
[2020-01-04] MEDS ORDERED: Ketorolac 30 MG/ML SDV IVPUSH ONE (14:23)
[2020-01-04] MEDS: predniSONE 20 MG Tab PO SCH (17:24)
[2020-01-04] MEDS: cefTRIAXone 1 GM in Sodium Chloride 0.9% 50 ML IV SCH (22:36)
[2020-01-04] MEDS: Lactobacillus Rhamnosus GG (Probiotic) Cap PO SCH (22:42)
[2020-01-04] MEDS: Melatonin 3 MG Tab PO SCH (22:42)
[2020-01-04] MEDS: Doxazosin 4 MG Tab PO SCH (22:42)
[2020-01-05] MEDS: Doxycycline 100 MG in Sodium Chloride 0.9% 100 ML IV SCH ×2 (01:43→14:25)
[2020-01-05] MEDS: Sodium Chloride 0.9% 1,000 ML IV SCH (01:49)
[2020-01-05] MEDS: Levothyroxine 50 MCG Tab PO SCH (08:12)
[2020-01-05] MEDS: Enoxaparin 30 MG/0.3 ML Syringe SUBCUT SCH (08:20)
[2020-01-05] MEDS: cefTRIAXone 1 GM in Sodium Chloride 0.9% 50 ML IV SCH ×2 (08:23→20:54)
[2020-01-05] MEDS: Aspirin 81 MG Tab.EC PO SCH (10:21)
[2020-01-05] MEDS: Lactobacillus Rhamnosus GG (Probiotic) Cap PO SCH ×2 (10:21→20:55)
[2020-01-05] MEDS: Amiodarone 200 MG Tab PO SCH (10:22)
[2020-01-05] MEDS: predniSONE 20 MG Tab PO SCH (11:04)
--- NOTE | 2020-01-05 12:18 | PCM.PN ---
- General Info Date of Service: 01/05/20 Subjective Update: Patient did have a fever last night and a low-grade fever this morning. Blood pressure did dip yesterday afternoon shortly after admission around the time of his fever. Blood pressure did respond to fluid boluses. Blood pressure is on the low side of normal but has been stable. He is more alert and interactive today. Still confused and oriented only to self at this point. He is complaining of pain in his lower back but he says this is chronic and unchanged. No hip pain today. He was on oxygen overnight but is off oxygen today. 1 out of 4 blood culture bottles are positive for gram-positive cocci. Functional Status: Reports: Pain Controlled, Tolerating Diet - Review of Systems General: Reports: Weakness Pulmonary: Reports: Cough Neurological: Reports: Confusion - Patient Data Vitals - Most Recent: Last Vital Signs Temp 38.1 C 01/05/20 07:48 Pulse 71 01/05/20 07:48 Resp 20 01/05/20 07:48 BP 104/42 L 01/05/20 07:48 Pulse Ox 100 01/05/20 07:48 Weight - Most Recent: 85.729 kg I&O - Last 24 Hours: Intake & Output 01/04/20 01/05/20 01/05/20 22:59 06:59 14:59 Intake Total 2480 1350 Balance 2480 1350 Lab Results Last 24 Hours: Laboratory Results - last 24 hr 01/04/20 01/05/20 01/05/20 Range/Units 12:00 05:11 05:11 WBC 11.8 H (4.5-11.0) K/uL RBC 3.17 L (4.30-5.90) M/uL Hgb 9.2 L (12.0-15.0) g/dL Hct 30.8 L (40.0-54.0) % MCV 97 (80-98) fL MCH 29 (27-31) pg MCHC 30 L (32-36) % Plt Count 219 (150-400) K/uL Sodium 144 (140-148) mmol/L Potassium 3.8 (3.6-5.2) mmol/L Chloride 109 H (100-108) mmol/L Carbon Dioxide 26 (21-32) mmol/L Anion Gap 12.8 (5.0-14.0) mmol/L BUN 33 H (7-18) mg/dL Creatinine 1.5 H (0.8-1.3) mg/dL Est Cr Clr Drug Dosing 29.57 mL/min Estimated GFR (MDRD) 44 L (>60) Glucose 101 (74-106) mg/dL Lactic Acid 2.1 H (0.4-2.0) mmol/L Calcium 7.9 L (8.5-10.1) mg/dL Magnesium 2.0 (1.8-2.4) mg/dL Phil Results Last 24 Hours: Microbiology 01/04/20 08:04 Urine Culture - Preliminary Urine, Catheterized NO GROWTH AFTER 1 DAY 01/04/20 07:50 Aerobic Blood Culture - Preliminary Blood - Venous - Iv Start Anaerobic Blood Culture - Preliminary NO GROWTH AFTER 1 DAY 01/04/20 07:40 Aerobic Blood Culture - Preliminary Blood - Arm, Right NO GROWTH AFTER 1 DAY Anaerobic Blood Culture - Preliminary NO GROWTH AFTER 1 DAY Med Orders - Current: Current Medications Acetaminophen (Tylenol) 650 mg PO Q4H PRN PRN Reason: Pain (Mild 1-3)/fever Acetaminophen (Tylenol) 650 mg RECTAL Q4H PRN PRN Reason: Fever Last Admin: 01/04/20 13:13 Dose: 650 mg Documented by: Albuterol (Proventil Neb Soln) 2.5 mg NEB Q4H PRN PRN Reason: Shortness Of Breath/wheezing Amiodarone HCl (Cordarone) 200 mg PO DAILY [facility] Last Admin: 01/05/20 10:22 Dose: 200 mg Documented by: Aspirin (Halfprin) 81 mg PO DAILY [facility] Last Admin: 01/05/20 10:21 Dose: 81 mg Documented by: Doxazosin Mesylate (Cardura) 2 mg PO BEDTIME [facility] Last Admin: 01/04/20 22:42 Dose: Not Given Documented by: Enoxaparin Sodium (Lovenox) 30 mg SUBCUT DAILY [facility] Last Admin: 01/05/20 08:20 Dose: 30 mg Documented by: Haloperidol (Haldol) 2 mg PO Q4H PRN PRN Reason: mild agitation Haloperidol Lactate (Haldol) 2 mg IVPUSH Q4H PRN PRN Reason: severe agitation Hydromorphone HCl (Dilaudid) 0.5 mg IVPUSH Q2H PRN PRN Reason: Pain Ceftriaxone Sodium 1 gm/ (Sodium Chloride) 50 mls @ 100 mls/hr IV Q12H [facility] Last Admin: 01/05/20 08:23 Dose: 100 mls/hr Documented by: Doxycycline Hyclate 100 mg/ (Sodium Chloride) 100 mls @ 100 mls/hr IV Q12H [facility] Last Admin: 01/05/20 01:43 Dose: 100 mls/hr Documented by: Lactobacillus Rhamnosus (Culturelle) 1 cap PO BID [facility] Last Admin: 01/05/20 10:21 Dose: 1 cap Documented by: Levothyroxine Sodium (Synthroid) 50 mcg PO ACBREAKFAST [facility] Last Admin: 01/05/20 08:12 Dose: 50 mcg Documented by: Lorazepam (Ativan) 0.5 mg IVPUSH Q4H PRN PRN Reason: Nausea/Vomiting Magnesium Hydroxide (Milk Of Magnesia) 30 ml PO Q12H PRN PRN Reason: Constipation Melatonin (Melatonin) 9 mg PO BEDTIME [facility] Last Admin: 01/04/20 22:42 Dose: Not Given Documented by: Ondansetron HCl (Zofran) 4 mg IV Q6H PRN PRN Reason: Nausea/Vomiting Ondansetron HCl (Zofran Odt) 4 mg PO Q6H PRN PRN Reason: Nausea able to take PO Oxycodone HCl (Oxycodone) 5 mg PO Q4H PRN PRN Reason: Pain (moderate 4-6) Prednisone (Prednisone) 20 mg PO BIDMEALS [facility] Last Admin: 01/05/20 11:04 Dose: 20 mg Documented by: Senna/Docusate Sodium (Senna Plus) 1 tab PO BID PRN PRN Reason: Constipation Discontinued Medications Hydromorphone HCl (Dilaudid) 0.5 mg IVPUSH ONETIME ONE Stop: 01/04/20 06:46 Last Admin: 01/04/20 06:49 Dose: 0.5 mg Documented by: Ceftriaxone Sodium 1 gm/ (Sodium Chloride) 50 mls @ 100 mls/hr IV ONETIME ONE Stop: 01/04/20 09:11 Last Admin: 01/04/20 08:56 Dose: 100 mls/hr Documented by: Sodium Chloride (Normal Saline) 1,000 mls @ 500 mls/hr IV ASDIRECTED [facility] Stop: 01/04/20 11:31 Last Admin: 01/04/20 09:50 Dose: 500 mls/hr Documented by: Sodium Chloride (Normal Saline) 1,000 mls @ 100 mls/hr IV ASDIRECTED KIM Last Admin: 01/05/20 01:49 Dose: 100 mls/hr Documented by: Sodium Chloride (Normal Saline) 1,000 mls @ 999 mls/hr IV ASDIRECTED KIM Stop: 01/04/20 15:31 Last Admin: 01/04/20 14:39 Dose: 999 mls/hr Documented by: Ketorolac Tromethamine (Toradol) 15 mg IVPUSH ONETIME ONE Stop: 01/04/20 14:24 Last Admin: 01/04/20 14:36 Dose: 15 mg Documented by: - Exam Quality Assessment: No: Supplemental Oxygen General: Alert, Cooperative, No Acute Distress. No: Oriented HEENT: Pupils Reactive Lungs: Normal Respiratory Effort, Decreased Breath Sounds (left lung base), Crackles (rare left lung base) Cardiovascular: Regular Rate, Regular Rhythm GI/Abdominal Exam: Soft, No Distention Extremities: Pedal Edema, Increased Warmth (right anterior lower leg ) Skin: Warm, Dry, Rash (erythema right anterior lower leg ) Psy/Mental Status: Alert, Normal Affect Sepsis Event Note - Evaluation Sepsis Screening Result: No Definite Risk - Focused Exam Vital Signs: Vital Signs Temp Pulse Resp BP Pulse Ox 01/05/20 07:48 38.1 C 71 20 104/42 L 100 01/05/20 03:00 37.6 C 76 18 105/51 L 90 L - Problem List & Annotations (1) Cellulitis of right lower extremity SNOMED Code(s): 689425202 Code(s): L03.115 - CELLULITIS OF RIGHT LOWER LIMB Status: Acute Current Visit: Yes (2) Dehydration SNOMED Code(s): 39005672 Code(s): E86.0 - DEHYDRATION Status: Acute Current Visit: Yes (3) Acute hyperactive delirium due to another medical condition SNOMED Code(s): 6498159, 173563896, 565449209 Code(s): F05 - DELIRIUM DUE TO KNOWN PHYSIOLOGICAL CONDITION Status: Acute Current Visit: Yes (4) Congestive heart failure (CHF) SNOMED Code(s): 06840348 Code(s): I50.9 - HEART FAILURE, UNSPECIFIED Status: Chronic Priority: Medium Current Visit: No (5) CKD (chronic kidney disease), stage III SNOMED Code(s): 136487787 Code(s): N18.3 - CHRONIC KIDNEY DISEASE, STAGE 3 (MODERATE) Status: Chronic Current Visit: No (6) Temporal arteritis SNOMED Code(s): 359656973 Code(s): M31.6 - OTHER GIANT CELL ARTERITIS Status: Chronic Current Visit : Yes - Problem List Review Problem List Initiated/Reviewed/Updated: Yes - My Orders Last 24 Hours: My Active Orders 01/04/20 13:00 Acetaminophen [Tylenol] 650 mg RECTAL Q4H PRN 01/04/20 14:00 Doxycycline [Vibramycin] 100 mg Sodium Chloride 0.9% [Normal Saline] 100 ml IV Q12H 01/04/20 17:00 predniSONE 20 mg PO BIDMEALS 01/04/20 21:00 Doxazosin [Cardura] 2 mg PO BEDTIME Lactobacillus Rhamnosus GG [Culturelle] 1 cap PO BID Melatonin 9 mg PO BEDTIME cefTRIAXone [Rocephin] 1 gm Sodium Chloride 0.9% [Normal Saline] 50 ml IV Q12H 01/05/20 07:00 PT Evaluation and Treatment [CONS] Routine 01/05/20 07:30 Levothyroxine [Synthroid] 50 mcg PO ACBREAKFAST 01/05/20 09:00 Amiodarone [Cordarone] 200 mg PO DAILY Aspirin [Halfprin] 81 mg PO DAILY Enoxaparin [Lovenox] 30 mg SUBCUT DAILY 01/05/20 Lunch Mechanical Soft Diet [DIET] 01/05/20 12:16 Convert IV to Saline Lock [OM.PC] Routine 01/06/20 05:00 BASIC METABOLIC PANEL,BMP [CHEM] Timed CBC W/O DIFF,HEMOGRAM [HEME] Timed (1) - Plan Plan:: ASSESSMENT AND PLAN - Cellulitis of right lower extremity with sepsis-this seems to be the most likely source of infection. 1 out of 4 blood culture bottles positive for gram- positive cocci. He is on doxycycline and ceftriaxone. Sepsis did become more prominent yesterday after admission with drop in his blood pressure. Seems to be more stable this morning. -Antibiotic coverage with ceftriaxone and doxycycline -Follow-up cultures -Saline lock IV -Pain control Hyperactive delirium-much less agitated/restless today and he is alert and oriented to self but not back to baseline as of yet. -Treat infection as above -Melatonin at bedtime -Haldol for significant agitation Stage III chronic kidney disease-slight improvement in creatinine overnight but slightly higher than baseline. Congestive heart failure-well compensated at this time. -Continue medical management Temporal arteritis-he is still on high-dose prednisone. -Continue prednisone with plan to start taper Maintenance issues - - DVT prophylaxis -enoxaparin - GI prophylaxis -not indicated - Nutrition -regular diet Disposition -I would anticipate discharge to a fdc facility after the hospital stay Primary care physician -Dr Eris Méndez M.D.
[2020-01-05] MEDS: Acetaminophen 325 MG Tab PO PRN (16:28)
[2020-01-05] MEDS: Doxazosin 4 MG Tab PO SCH (20:54)
[2020-01-05] MEDS: Melatonin 3 MG Tab PO SCH (20:54)
[2020-01-06] MEDS: Acetaminophen 325 MG Tab PO PRN (00:27)
[2020-01-06] MEDS: Doxycycline 100 MG in Sodium Chloride 0.9% 100 ML IV SCH ×2 (01:41→14:13)
[2020-01-06] MEDS: Levothyroxine 50 MCG Tab PO SCH (08:41)
[2020-01-06] MEDS: predniSONE 20 MG, predniSONE 10 MG, predniSONE 5 MG PO SCH ×3 (08:42)
[2020-01-06] MEDS: Lactobacillus Rhamnosus GG (Probiotic) Cap PO SCH ×2 (08:42→21:42)
[2020-01-06] MEDS: Amiodarone 200 MG Tab PO SCH (08:42)
[2020-01-06] MEDS: Aspirin 81 MG Tab.EC PO SCH (08:42)
[2020-01-06] MEDS: Enoxaparin 30 MG/0.3 ML Syringe SUBCUT SCH (08:43)
[2020-01-06] MEDS: Potassium Chloride 20 MEQ Tab.ER PO ONE ×2 (08:45→09:40)
[2020-01-06] MEDS ORDERED: predniSONE 20 MG Tab PO SCH (09:00)
[2020-01-06] MEDS: cefTRIAXone 1 GM in Sodium Chloride 0.9% 50 ML IV SCH ×2 (09:56→21:35)
--- NOTE | 2020-01-06 12:10 | PCM.PN ---
- General Info Date of Service: 01/06/20 Subjective Update: No acute issues overnight. Patient is little bit more alert and interactive today but still oriented only to person. He thought maybe he was in [place] but does recall that he lives in [place]. His vital signs have been relatively stable. No significant agitation though he did not want to take his morning pills today. Laboratory studies all show some improvement compared to yesterday. Cultures are still pending. Tolerating antibiotics. Intermittently requires a small amount of oxygen but overall has been off supplemental oxygen. Still complaining of right knee pain. Functional Status: Reports: Pain Controlled - Review of Systems General: Reports: Weakness Musculoskeletal: Reports: Joint Pain (right knee ) Psychiatric: Reports: Confusion - Patient Data Vitals - Most Recent: Last Vital Signs Temp 36.9 C 01/06/20 11:10 Pulse 63 01/06/20 11:10 Resp 18 01/06/20 11:10 BP 110/49 L 01/06/20 11:10 Pulse Ox 96 01/06/20 11:10 Weight - Most Recent: 85.729 kg I&O - Last 24 Hours: Intake & Output 01/05/20 01/06/20 01/06/20 22:59 06:59 14:59 Intake Total 1160 100 120 Output Total 150 Balance 1010 100 120 Lab Results Last 24 Hours: Laboratory Results - last 24 hr 01/06/20 01/06/20 Range/Units 04:29 04:29 WBC 11.9 H (4.5-11.0) K/uL RBC 3.02 L (4.30-5.90) M/uL Hgb 8.6 L (12.0-15.0) g/dL Hct 29.1 L (40.0-54.0) % MCV 96 (80-98) fL MCH 29 (27-31) pg MCHC 30 L (32-36) % Plt Count 218 (150-400) K/uL Sodium 143 (140-148) mmol/L Potassium 3.4 L (3.6-5.2) mmol/L Chloride 110 H (100-108) mmol/L Carbon Dioxide 24 (21-32) mmol/L Anion Gap 12.4 (5.0-14.0) mmol/L BUN 34 H (7-18) mg/dL Creatinine 1.4 H (0.8-1.3) mg/dL Est Cr Clr Drug Dosing 31.68 mL/min Estimated GFR (MDRD) 48 L (>60) Glucose 139 H (74-106) mg/dL Calcium 8.6 (8.5-10.1) mg/dL Phil Results Last 24 Hours: Microbiology 01/04/20 07:50 Aerobic Blood Culture - Preliminary Blood - Venous - Iv Start Anaerobic Blood Culture - Preliminary NO GROWTH AFTER 2 DAYS 01/04/20 07:40 Aerobic Blood Culture - Preliminary Blood - Arm, Right NO GROWTH AFTER 2 DAYS Anaerobic Blood Culture - Preliminary NO GROWTH AFTER 2 DAYS 01/04/20 08:04 Urine Culture - Final Urine, Catheterized NO GROWTH AFTER 2 DAYS Med Orders - Current: Current Medications Acetaminophen (Tylenol) 650 mg PO Q4H PRN PRN Reason: Pain (Mild 1-3)/fever Last Admin: 01/06/20 00:27 Dose: 650 mg Documented by: Acetaminophen (Tylenol) 650 mg RECTAL Q4H PRN PRN Reason: Fever Last Admin: 01/04/20 13:13 Dose: 650 mg Documented by: Albuterol (Proventil Neb Soln) 2.5 mg NEB Q4H PRN PRN Reason: Shortness Of Breath/wheezing Last Admin: 01/06/20 00:26 Dose: 2.5 mg Documented by: Amiodarone HCl (Cordarone) 200 mg PO DAILY [facility] Last Admin: 01/06/20 08:42 Dose: 200 mg Documented by: Aspirin (Halfprin) 81 mg PO DAILY [facility] Last Admin: 01/06/20 08:42 Dose: 81 mg Documented by: Doxazosin Mesylate (Cardura) 2 mg PO BEDTIME [facility] Last Admin: 01/05/20 20:54 Dose: 2 mg Documented by: Enoxaparin Sodium (Lovenox) 30 mg SUBCUT DAILY [facility] Last Admin: 01/06/20 08:43 Dose: 30 mg Documented by: Haloperidol (Haldol) 2 mg PO Q4H PRN PRN Reason: mild agitation Haloperidol Lactate (Haldol) 2 mg IVPUSH Q4H PRN PRN Reason: severe agitation Hydromorphone HCl (Dilaudid) 0.5 mg IVPUSH Q2H PRN PRN Reason: Pain Ceftriaxone Sodium 1 gm/ (Sodium Chloride) 50 mls @ 100 mls/hr IV Q12H [facility] Last Admin: 01/06/20 09:56 Dose: 100 mls/hr Documented by: Doxycycline Hyclate 100 mg/ (Sodium Chloride) 100 mls @ 100 mls/hr IV Q12H [facility] Last Admin: 01/06/20 01:41 Dose: 100 mls/hr Documented by: Lactobacillus Rhamnosus (Culturelle) 1 cap PO BID [facility] Last Admin: 01/06/20 08:42 Dose: 1 cap Documented by: Levothyroxine Sodium (Synthroid) 50 mcg PO ACBREAKFAST [facility] Last Admin: 01/06/20 08:41 Dose: 50 mcg Documented by: Lorazepam (Ativan) 0.5 mg IVPUSH Q4H PRN PRN Reason: Nausea/Vomiting Magnesium Hydroxide (Milk Of Magnesia) 30 ml PO Q12H PRN PRN Reason: Constipation Melatonin (Melatonin) 9 mg PO BEDTIME [facility] Last Admin: 01/05/20 20:54 Dose: 9 mg Documented by: Ondansetron HCl (Zofran) 4 mg IV Q6H PRN PRN Reason: Nausea/Vomiting Ondansetron HCl (Zofran Odt) 4 mg PO Q6H PRN PRN Reason: Nausea able to take PO Oxycodone HCl (Oxycodone) 5 mg PO Q4H PRN PRN Reason: Pain (moderate 4-6) Prednisone 20 mg/ Prednisone (10 mg/ Prednisone 5 mg) 35 mg PO DAILY@0800 [facility] Last Admin: 01/06/20 08:42 Dose: 35 mg Documented by: Senna/Docusate Sodium (Senna Plus) 1 tab PO BID PRN PRN Reason: Constipation Discontinued Medications Hydromorphone HCl (Dilaudid) 0.5 mg IVPUSH ONETIME ONE Stop: 01/04/20 06:46 Last Admin: 01/04/20 06:49 Dose: 0.5 mg Documented by: Ceftriaxone Sodium 1 gm/ (Sodium Chloride) 50 mls @ 100 mls/hr IV ONETIME ONE Stop: 01/04/20 09:11 Last Admin: 01/04/20 08:56 Dose: 100 mls/hr Documented by: Sodium Chloride (Normal Saline) 1,000 mls @ 500 mls/hr IV ASDIRECTED [facility] Stop: 01/04/20 11:31 Last Admin: 01/04/20 09:50 Dose: 500 mls/hr Documented by: Sodium Chloride (Normal Saline) 1,000 mls @ 100 mls/hr IV ASDIRECTED [facility] Last Admin: 01/05/20 01:49 Dose: 100 mls/hr Documented by: Sodium Chloride (Normal Saline) 1,000 mls @ 999 mls/hr IV ASDIRECTED [facility] Stop: 01/04/20 15:31 Last Admin: 01/04/20 14:39 Dose: 999 mls/hr Documented by: Ketorolac Tromethamine (Toradol) 15 mg IVPUSH ONETIME ONE Stop: 01/04/20 14:24 Last Admin: 01/04/20 14:36 Dose: 15 mg Documented by: Potassium Chloride (Klor-Con M20) 40 meq PO ONETIME ONE Stop: 01/06/20 09:01 Last Admin: 01/06/20 09:40 Dose: Not Given Documented by: Prednisone (Prednisone) 20 mg PO BIDMEALS [facility] Last Admin: 01/05/20 11:04 Dose: 20 mg Documented by: - Exam Quality Assessment: No: Supplemental Oxygen General: Alert, Cooperative, No Acute Distress. No: Oriented Lungs: Clear to Auscultation, Normal Respiratory Effort Cardiovascular: Regular Rate, Regular Rhythm GI/Abdominal Exam: Soft, No Distention Extremities: Pedal Edema, Increased Warmth (right knee ) Skin: Warm, Dry, Ecchymosis (multiple on arms ) Psy/Mental Status: Alert, Normal Affect Sepsis Event Note - Evaluation Sepsis Screening Result: No Definite Risk - Focused Exam Vital Signs: Vital Signs Temp Temp Pulse Resp BP Pulse Ox 01/06/20 11:10 36.9 C 63 18 110/49 L 96 01/06/20 08:04 36.6 C 64 20 101/52 L 94 L 01/06/20 03:01 35.2 C L 69 16 109/46 L 95 - Problem List & Annotations (1) Cellulitis of right lower extremity SNOMED Code(s): 345409278 Code(s): L03.115 - CELLULITIS OF RIGHT LOWER LIMB Status: Acute Current Visit: Yes (2) Dehydration SNOMED Code(s): 53155405 Code(s): E86.0 - DEHYDRATION Status: Acute Current Visit: Yes (3) Acute hyperactive delirium due to another medical condition SNOMED Code(s): 4543580, 674885734, 877269007 Code(s): F05 - DELIRIUM DUE TO KNOWN PHYSIOLOGICAL CONDITION Status: Acute Current Visit: Yes (4) Congestive heart failure (CHF) SNOMED Code(s): 82759636 Code(s): I50.9 - HEART FAILURE, UNSPECIFIED Status: Chronic Priority: Medium Current Visit: No (5) CKD (chronic kidney disease), stage III SNOMED Code(s): 983962676 Code(s): N18.3 - CHRONIC KIDNEY DISEASE, STAGE 3 (MODERATE) Status: Chronic Current Visit: No (6) Temporal arteritis SNOMED Code(s): 695805668 Code(s): M31.6 - OTHER GIANT CELL ARTERITIS Status: Chronic Current Visit: Yes - Problem List Review Problem List Initiated/Reviewed/Updated: Yes - My Orders Last 24 Hours: My Active Orders 01/05/20 Lunch Mechanical Soft Diet [DIET] 01/05/20 12:16 Convert IV to Saline Lock [OM.PC] Routine 01/06/20 08:00 Prednisone 35 mg PO DAILY@0800 01/07/20 05:00 BASIC METABOLIC PANEL,BMP [CHEM] Timed CBC W/O DIFF,HEMOGRAM [HEME] Timed (1) - Plan Plan:: ASSESSMENT AND PLAN - Cellulitis of right lower extremity with sepsis-this seems to be the most likely source of infection. 1 out of 4 blood culture bottles positive for gram- positive cocci. He is on doxycycline and ceftriaxone. Sepsis is better. Still confused but slowly seems to be getting better. Vitals are stable. Cultures are all still pending. -Antibiotic coverage with ceftriaxone and doxycycline -Follow-up cultures -Saline lock IV -Pain control Possible left lower lung pneumonia-mild cough and intermittent pneumonia but chest x-ray was not real impressive. Should have plenty of coverage from the above antibiotics. Hyperactive delirium-much less agitated/restless today and he is alert but still quite disoriented and restless. -Treat infection as above -Melatonin at bedtime -Haldol for significant agitation Stage III chronic kidney disease-slight improvement in creatinine overnight but slightly higher than baseline. Congestive heart failure-well compensated at this time. -Continue medical management Temporal arteritis-he is still on high-dose prednisone. -Continue prednisone with plan to start taper 35 mgx2 weeks, decrease by 5 mg every 2 weeks Maintenance issues - - DVT prophylaxis -enoxaparin - GI prophylaxis -not indicated - Nutrition -regular diet Disposition -I would anticipate discharge to a group home facility after the hospital stay Primary care physician -Dr Eris Méndez M.D.
[2020-01-06] MEDS: Doxazosin 4 MG Tab PO SCH (21:42)
[2020-01-06] MEDS: Melatonin 3 MG Tab PO SCH (21:42)
[2020-01-07] MEDS: Doxycycline 100 MG in Sodium Chloride 0.9% 100 ML IV SCH (01:40)
[2020-01-07] MEDS: Levothyroxine 50 MCG Tab PO SCH (09:00)
[2020-01-07] MEDS: Aspirin 81 MG Tab.EC PO SCH (09:01)
[2020-01-07] MEDS: Lactobacillus Rhamnosus GG (Probiotic) Cap PO SCH ×2 (09:01→22:12)
[2020-01-07] MEDS: predniSONE 20 MG, predniSONE 10 MG, predniSONE 5 MG PO SCH ×3 (09:01)
[2020-01-07] MEDS: Enoxaparin 30 MG/0.3 ML Syringe SUBCUT SCH (09:01)
[2020-01-07] MEDS: Amiodarone 200 MG Tab PO SCH (09:01)
[2020-01-07] MEDS: cefTRIAXone 1 GM in Sodium Chloride 0.9% 50 ML IV SCH (09:27)
[2020-01-07] MEDS ORDERED: Divalproex Sodium Delayed-Release 250 MG Tab.CR PO ONE (10:15)
--- NOTE | 2020-01-07 10:33 | PCM.PN ---
- General Info Date of Service: 01/07/20 Subjective Update: Patient did not sleep well overnight but there were no acute issues. He continues to be confused though he is somewhat interactive this morning. He does not provide much in the way of useful history and some of his speech is difficult to understand. He says that he feels fine. When questioned further he does report that his right lower leg aches but he is used to that. He did sleep for a couple hours this morning. Vital signs have been stable. Kidney function slowly improving. He is having some low-grade fevers. He has not needed oxygen. Tolerating antibiotics so far. - Review of Systems General: Denies: Fever - Patient Data Vitals - Most Recent: Last Vital Signs Temp 36.7 C 01/07/20 07:00 Pulse 67 01/07/20 07:00 Resp 18 01/07/20 07:00 BP 131/63 01/07/20 07:00 Pulse Ox 94 L 01/07/20 07:00 Weight - Most Recent: 85.729 kg I&O - Last 24 Hours: Intake & Output 01/06/20 01/07/20 01/07/20 22:59 06:59 14:59 Intake Total 830 100 Output Total 100 Balance 830 0 Lab Results Last 24 Hours: Laboratory Results - last 24 hr 01/07/20 01/07/20 Range/Units 04:10 04:10 WBC 9.4 (4.5-11.0) K/uL RBC 3.10 L (4.30-5.90) M/uL Hgb 8.9 L (12.0-15.0) g/dL Hct 29.8 L (40.0-54.0) % MCV 96 (80-98) fL MCH 29 (27-31) pg MCHC 30 L (32-36) % Plt Count 187 (150-400) K/uL Sodium 143 (140-148) mmol/L Potassium 3.8 (3.6-5.2) mmol/L Chloride 109 H (100-108) mmol/L Carbon Dioxide 23 (21-32) mmol/L Anion Gap 14.8 H (5.0-14.0) mmol/L BUN 29 H (7-18) mg/dL Creatinine 1.2 (0.8-1.3) mg/dL Est Cr Clr Drug Dosing 36.96 mL/min Estimated GFR (MDRD) 57 L (>60) Glucose 114 H (74-106) mg/dL Calcium 8.4 L (8.5-10.1) mg/dL Phil Results Last 24 Hours: Microbiology 01/04/20 07:50 Aerobic Blood Culture - Preliminary Blood - Venous - Iv Start Staphylococcus Epidermidis Anaerobic Blood Culture - Preliminary NO GROWTH AFTER 3 DAYS 01/04/20 07:40 Aerobic Blood Culture - Preliminary Blood - Arm, Right NO GROWTH AFTER 3 DAYS Anaerobic Blood Culture - Preliminary NO GROWTH AFTER 3 DAYS 01/04/20 08:04 Urine Culture - Final Urine, Catheterized NO GROWTH AFTER 2 DAYS Med Orders - Current: Current Medications Acetaminophen (Tylenol) 650 mg PO Q4H PRN PRN Reason: Pain (Mild 1-3)/fever Last Admin: 01/06/20 00:27 Dose: 650 mg Documented by: Acetaminophen (Tylenol) 650 mg RECTAL Q4H PRN PRN Reason: Fever Last Admin: 01/04/20 13:13 Dose: 650 mg Documented by: Albuterol (Proventil Neb Soln) 2.5 mg NEB Q4H PRN PRN Reason: Shortness Of Breath/wheezing Last Admin: 01/06/20 00:26 Dose: 2.5 mg Documented by: Amiodarone HCl (Cordarone) 200 mg PO DAILY [facility] Last Admin: 01/07/20 09:01 Dose: 200 mg Documented by: Aspirin (Halfprin) 81 mg PO DAILY [facility] Last Admin: 01/07/20 09:01 Dose: 81 mg Documented by: Divalproex Sodium (Divalproex Sodium) 250 mg PO BID [facility] Doxazosin Mesylate (Cardura) 2 mg PO BEDTIME [facility] Last Admin: 01/06/20 21:42 Dose: 2 mg Documented by: Doxycycline Hyclate (Vibramycin) 100 mg PO BID [facility] Enoxaparin Sodium (Lovenox) 30 mg SUBCUT DAILY [facility] Last Admin: 01/07/20 09:01 Dose: 30 mg Documented by: Haloperidol (Haldol) 2 mg PO Q4H PRN PRN Reason: mild agitation Haloperidol Lactate (Haldol) 2 mg IVPUSH Q4H PRN PRN Reason: severe agitation Hydromorphone HCl (Dilaudid) 0.5 mg IVPUSH Q2H PRN PRN Reason: Pain Lactobacillus Rhamnosus (Culturelle) 1 cap PO BID [facility] Last Admin: 01/07/20 09:01 Dose: 1 cap Documented by: Levothyroxine Sodium (Synthroid) 50 mcg PO ACBREAKFAST [facility] Last Admin: 01/07/20 09:00 Dose: 50 mcg Documented by: Lorazepam (Ativan) 0.5 mg IVPUSH Q4H PRN PRN Reason: Nausea/Vomiting Magnesium Hydroxide (Milk Of Magnesia) 30 ml PO Q12H PRN PRN Reason: Constipation Melatonin (Melatonin) 9 mg PO BEDTIME [facility] Last Admin: 01/06/20 21:42 Dose: 9 mg Documented by: Ondansetron HCl (Zofran) 4 mg IV Q6H PRN PRN Reason: Nausea/Vomiting Ondansetron HCl (Zofran Odt) 4 mg PO Q6H PRN PRN Reason: Nausea able to take PO Oxycodone HCl (Oxycodone) 5 mg PO Q4H PRN PRN Reason: Pain (moderate 4-6) Prednisone 20 mg/ Prednisone (10 mg/ Prednisone 5 mg) 35 mg PO DAILY@0800 [facility] Last Admin: 01/07/20 09:01 Dose: 35 mg Documented by: Senna/Docusate Sodium (Senna Plus) 1 tab PO BID PRN PRN Reason: Constipation Discontinued Medications Divalproex Sodium (Divalproex Sodium) 250 mg PO ONETIME ONE Stop: 01/07/20 10:16 Hydromorphone HCl (Dilaudid) 0.5 mg IVPUSH ONETIME ONE Stop: 01/04/20 06:46 Last Admin: 01/04/20 06:49 Dose: 0.5 mg Documented by: Ceftriaxone Sodium 1 gm/ (Sodium Chloride) 50 mls @ 100 mls/hr IV ONETIME ONE Stop: 01/04/20 09:11 Last Admin: 01/04/20 08:56 Dose: 100 mls/hr Documented by: Sodium Chloride (Normal Saline) 1,000 mls [facility] Stop: 01/04/20 11:31 Last Admin: 01/04/20 09:50 Dose: 500 mls/hr Documented by: Sodium Chloride (Normal Saline) 1,000 mls @ 100 [facility]ls[facility] Last Admin: 01/05/20 01:49 Dose: 100 mls/hr Documented by: Ceftriaxone Sodium 1 gm/ (Sodium Chloride) 50 mls @ 100 mls/hr IV Q12H [facility] Last Admin: 01/07/20 09:27 Dose: 100 mls/hr Documented by: Doxycycline Hyclate 100 mg/ (Sodium Chloride) 100 mls @ 100 mls/hr IV Q12H [facility] Last Admin: 01/07/20 01:40 Dose: 100 mls/hr Documented by: Sodium Chloride (Normal Saline) 1,000 mls @ 999 mls/hr IV ASDIRECTED [facility] Stop: 01/04/20 15:31 Last Admin: 01/04/20 14:39 Dose: 999 mls/hr Documented by: Ketorolac Tromethamine (Toradol) 15 mg IVPUSH ONETIME ONE Stop: 01/04/20 14:24 Last Admin: 01/04/20 14:36 Dose: 15 mg Documented by: Potassium Chloride (Klor-Con M20) 40 meq PO ONETIME ONE Stop: 01/06/20 09:01 Last Admin: 01/06/20 09:40 Dose: Not Given Documented by: Prednisone (Prednisone) 20 mg PO BIDMEALS [facility] Last Admin: 01/05/20 11:04 Dose: 20 mg Documented by: - Exam Quality Assessment: No: Supplemental Oxygen General: Alert, Cooperative, No Acute Distress. No: Oriented HEENT: Pupils Equal Lungs: Clear to Auscultation, Normal Respiratory Effort Cardiovascular: Regular Rate, Regular Rhythm GI/Abdominal Exam: Normal Bowel Sounds, Soft, No Distention Extremities: Pedal Edema (Right leg swollen to above the knee), Increased Warmth (Right knee) Skin: Warm, Dry Wound/Incisions: No: Dressing Dry and Intact (Mild serosanguineous drainage from the medial portion of the right lower extremity soaking the dressing) Psy/Mental Status: Alert. No: Agitated Sepsis Event Note - Evaluation Sepsis Screening Result: No Definite Risk - Focused Exam Vital Signs: Vital Signs Temp Pulse Resp BP Pulse Ox Pulse Ox 01/07/20 07:00 36.7 C 67 18 131/63 94 L 01/07/20 03:00 95 01/07/20 02:58 36.8 C 73 18 151/67 H 95 01/06/20 23:00 37.0 C 74 18 126/58 L 94 L - Problem List & Annotations (1) Cellulitis of right lower extremity SNOMED Code(s): 892654769 Code(s): L03.115 - CELLULITIS OF RIGHT LOWER LIMB Status: Acute Current Visit: Yes (2) Dehydration SNOMED Code(s): 56015960 Code(s): E86.0 - DEHYDRATION Status: Acute Current Visit: Yes (3) Acute hyperactive delirium due to another medical condition SNOMED Code(s): 8762189, 997596696, 969149956 Code(s): F05 - DELIRIUM DUE TO KNOWN PHYSIOLOGICAL CONDITION Status: Acute Current Visit: Yes (4) Congestive heart failure (CHF) SNOMED Code(s): 71223397 Code(s): I50.9 - HEART FAILURE, UNSPECIFIED Status: Chronic Priority: Medium Current Visit: No (5) CKD (chronic kidney disease), stage III SNOMED Code(s): 160331704 Code(s): N18.3 - CHRONIC KIDNEY DISEASE, STAGE 3 (MODERATE) Status: Chronic Current Visit: No (6) Temporal arteritis SNOMED Code(s): 568922225 Code(s): M31.6 - OTHER GIANT CELL ARTERITIS Status: Chronic Current Visit: Yes - Problem List Review Problem List Initiated/Reviewed/Updated: Yes - My Orders Last 24 Hours: My Active Orders 01/06/20 12:10 Up to Chair [RC] QID 01/07/20 10:15 Doxycycline [Vibramycin] 100 mg PO BID 01/07/20 21:00 Divalproex Sodium 250 mg PO BID 01/08/20 05:00 BASIC METABOLIC PANEL,BMP [CHEM] Timed - Plan Plan:: ASSESSMENT AND PLAN - Cellulitis of right lower extremity with sepsis-this seems to be the most likely source of infection. 1 out of 4 blood culture bottles positive for staph epidermidis which is probably a contaminant. He has a fair amount of swelling in the right lower extremity that has been progressing during the hospital stay. -Antibiotic coverage with doxycycline -Lower extremity ultrasound to assess for DVT -Follow-up cultures -Saline lock IV -Pain control Possible left lower lung pneumonia-mild cough and intermittent pneumonia but chest x-ray was not real impressive. After couple days of observation I doubt that he had a pneumonia and the effusion/chest x-ray change was probably chronic. Hyperactive delirium-restless and mildly agitated overnight and did not sleep. Sleepy this morning. Still fairly confused and not improving as I would have expected. -Trial of Depakote -Treat infection as above -Melatonin at bedtime -Haldol for significant agitation Stage III chronic kidney disease-slight improvement in creatinine over the past couple of days. Congestive heart failure-well compensated at this time. -Continue medical management Temporal arteritis-he is still on high-dose prednisone. -Continue prednisone with plan to start taper 35 mgx2 weeks, decrease by 5 mg every 2 weeks Maintenance issues - - DVT prophylaxis -enoxaparin - GI prophylaxis -not indicated - Nutrition -regular diet Disposition -I would anticipate discharge to a long term facility after the hospital stay Primary care physician -Dr Eris Méndez M.D.
[2020-01-07] MEDS: Doxycycline 100 MG Cap PO SCH ×2 (11:19→22:11)
--- NOTE | 2020-01-07 15:15 | CRLUS ---
INDICATION: Right leg swelling and pain. TECHNIQUE: Ultrasound venous duplex lower right extremity. Compression venous exam was performed using griffin-scale, color Doppler, and spectral Doppler imaging. COMPARISON: None. FINDINGS: Sonographic imaging demonstrates the right common femoral, deep femoral, superficial femoral, popliteal, posterior tibial, peroneal and greater saphenous and the contralateral left common femoral veins to be fully compressible with normal color Doppler blood flow. Moderate subcutaneous edema diffusely and right leg. Remainder negative. IMPRESSION: No DVT in right leg. Moderate subcutaneous edema diffusely and right leg. Dictated by Dimitrios Cox MD @ Jan 07 2020 3:13PM Signed by Dr. Dimitrios Cox @ Jan 07 2020 3:15PM
[2020-01-07] MEDS: Magnesium Hydroxide 400 MG/5 ML Susp 30 ML Cup PO PRN (15:55)
[2020-01-07] MEDS: Melatonin 3 MG Tab PO SCH (22:11)
[2020-01-07] MEDS: Doxazosin 4 MG Tab PO SCH (22:12)
[2020-01-07] MEDS: Divalproex Sodium Delayed-Release 250 MG Tab.CR PO SCH (22:14)
[2020-01-08] MEDS: Levothyroxine 50 MCG Tab PO SCH (07:28)
[2020-01-08] MEDS: Acetaminophen 325 MG Tab PO PRN ×2 (07:32→12:55)
[2020-01-08] MEDS: predniSONE 20 MG, predniSONE 10 MG, predniSONE 5 MG PO SCH ×3 (08:15)
[2020-01-08] MEDS: Doxycycline 100 MG Cap PO SCH ×2 (08:16→21:04)
[2020-01-08] MEDS: Divalproex Sodium Delayed-Release 250 MG Tab.CR PO SCH ×2 (08:16→21:03)
[2020-01-08] MEDS: Amiodarone 200 MG Tab PO SCH (08:16)
[2020-01-08] MEDS: Lactobacillus Rhamnosus GG (Probiotic) Cap PO SCH ×2 (08:16→21:04)
[2020-01-08] MEDS: Enoxaparin 40 MG/0.4 ML Syringe SUBCUT SCH (08:17)
[2020-01-08] MEDS: Aspirin 81 MG Tab.EC PO SCH (08:17)
--- NOTE | 2020-01-08 11:24 | PCM.PN ---
- General Info Date of Service: 01/08/20 Subjective Update: No acute events overnight. He is a little bit more alert and interactive today but still somewhat confused and lethargic compared to baseline. Strength does seem to be improving. There is no evidence for DVT with the ultrasound yesterday. Swelling is stable. No significant redness or warmth of the lower leg. He does still have some weeping of the right lower leg. Cultures are all negative. He has not required supplemental oxygen. Functional Status: Reports: Pain Controlled, Tolerating Diet - Review of Systems General: Reports: Weakness. Denies: Fever Psychiatric: Reports: Confusion - Patient Data Vitals - Most Recent: Last Vital Signs Temp 35.7 C L 01/08/20 11:00 Pulse 54 L 01/08/20 11:00 Resp 18 01/08/20 11:00 BP 107/47 L 01/08/20 11:00 Pulse Ox 95 01/08/20 11:00 Weight - Most Recent: 85.729 kg I&O - Last 24 Hours: Intake & Output 01/07/20 01/08/20 01/08/20 22:59 06:59 14:59 Intake Total 400 420 750 Output Total 450 100 100 Balance -50 320 650 Lab Results Last 24 Hours: Laboratory Results - last 24 hr 01/08/20 Range/Units 04:55 Sodium 142 (140-148) mmol/L Potassium 4.1 (3.6-5.2) mmol/L Chloride 108 (100-108) mmol/L Carbon Dioxide 24 (21-32) mmol/L Anion Gap 9.7 (5.0-14.0) mmol/L BUN 30 H (7-18) mg/dL Creatinine 1.1 (0.8-1.3) mg/dL Est Cr Clr Drug Dosing 40.32 mL/min Estimated GFR (MDRD) > 60 (>60) Glucose 110 H (74-106) mg/dL Calcium 8.9 (8.5-10.1) mg/dL Phil Results Last 24 Hours: Microbiology 01/04/20 07:40 Aerobic Blood Culture - Preliminary Blood - Arm, Right NO GROWTH AFTER 4 DAYS Anaerobic Blood Culture - Preliminary NO GROWTH AFTER 4 DAYS 01/04/20 07:50 Aerobic Blood Culture - Final Blood - Venous - Iv Start Staphylococcus Epidermidis Anaerobic Blood Culture - Preliminary NO GROWTH AFTER 4 DAYS Med Orders - Current: Current Medications Acetaminophen (Tylenol) 650 mg PO Q4H PRN PRN Reason: Pain (Mild 1-3)/fever Last Admin: 01/08/20 07:32 Dose: 650 mg Documented by: Acetaminophen (Tylenol) 650 mg RECTAL Q4H PRN PRN Reason: Fever Last Admin: 01/04/20 13:13 Dose: 650 mg Documented by: Albuterol (Proventil Neb Soln) 2.5 mg NEB Q4H PRN PRN Reason: Shortness Of Breath/wheezing Last Admin: 01/06/20 00:26 Dose: 2.5 mg Documented by: Amiodarone HCl (Cordarone) 200 mg PO DAILY [facility] Last Admin: 01/08/20 08:16 Dose: 200 mg Documented by: Aspirin (Halfprin) 81 mg PO DAILY [facility] Last Admin: 01/08/20 08:17 Dose: 81 mg Documented by: Divalproex Sodium (Divalproex Sodium) 250 mg PO BID [facility] Last Admin: 01/08/20 08:16 Dose: 250 mg Documented by: Doxazosin Mesylate (Cardura) 2 mg PO BEDTIME [facility] Last Admin: 01/07/20 22:12 Dose: 2 mg Documented by: Doxycycline Hyclate (Vibramycin) 100 mg PO BID [facility] Last Admin: 01/08/20 08:16 Dose: 100 mg Documented by: Enoxaparin Sodium (Lovenox) 40 mg SUBCUT DAILY [facility] Last Admin: 01/08/20 08:17 Dose: 40 mg Documented by: Furosemide (Lasix) 60 mg PO ONETIME ONE Stop: 01/08/20 11:21 Furosemide (Lasix) 60 mg PO DAILY [facility] Haloperidol (Haldol) 2 mg PO Q4H PRN PRN Reason: mild agitation Haloperidol Lactate (Haldol) 2 mg IVPUSH Q4H PRN PRN Reason: severe agitation Hydromorphone HCl (Dilaudid) 0.5 mg IVPUSH Q2H PRN PRN Reason: Pain Lactobacillus Rhamnosus (Culturelle) 1 cap PO BID [facility] Last Admin: 01/08/20 08:16 Dose: 1 cap Documented by: Levothyroxine Sodium (Synthroid) 50 mcg PO ACBREAKFAST [facility] Last Admin: 01/08/20 07:28 Dose: 50 mcg Documented by: Lorazepam (Ativan) 0.5 mg IVPUSH Q4H PRN PRN Reason: Nausea/Vomiting Magnesium Hydroxide (Milk Of Magnesia) 30 ml PO Q12H PRN PRN Reason: Constipation Last Admin: 01/07/20 15:55 Dose: 30 ml Documented by: Melatonin (Melatonin) 9 mg PO BEDTIME [facility] Last Admin: 01/07/20 22:11 Dose: 9 mg Documented by: Ondansetron HCl (Zofran) 4 mg IV Q6H PRN PRN Reason: Nausea/Vomiting Ondansetron HCl (Zofran Odt) 4 mg PO Q6H PRN PRN Reason: Nausea able to take PO Oxycodone HCl (Oxycodone) 5 mg PO Q4H PRN PRN Reason: Pain (moderate 4-6) Prednisone 20 mg/ Prednisone (10 mg/ Prednisone 5 mg) 35 mg PO DAILY@0800 [facility] Last Admin: 01/08/20 08:15 Dose: 35 mg Documented by: Senna/Docusate Sodium (Senna Plus) 1 tab PO BID PRN PRN Reason: Constipation Last Admin: 01/08/20 07:36 Dose: 1 tab Documented by: Discontinued Medications Divalproex Sodium (Divalproex Sodium) 250 mg PO ONETIME ONE Stop: 01/07/20 10:16 Last Admin: 01/07/20 11:19 Dose: 250 mg Documented by: Enoxaparin Sodium (Lovenox) 30 mg SUBCUT DAILY [facility] Last Admin: 01/07/20 09:01 Dose: 30 mg Documented by: Hydromorphone HCl (Dilaudid) 0.5 mg IVPUSH ONETIME ONE Stop: 01/04/20 06:46 Last Admin: 01/04/20 06:49 Dose: 0.5 mg Documented by: Ceftriaxone Sodium 1 gm/ (Sodium Chloride) 50 mls @ 100 mls/hr IV ONETIME ONE Stop: 01/04/20 09:11 Last Admin: 01/04/20 08:56 Dose: 100 mls/hr Documented by: Sodium Chloride (Normal Saline) 1,000 mls @ 500 mls/hr IV ASDIRECTED [facility] Stop: 01/04/20 11:31 Last Admin: 01/04/20 09:50 Dose: 500 mls/hr Documented by: Sodium Chloride (Normal Saline) 1,000 mls @ 100 mls/hr IV ASDIRECTED [facility] Last Admin: 01/05/20 01:49 Dose: 100 mls/hr Documented by: Ceftriaxone Sodium 1 gm/ (Sodium Chloride) 50 mls @ 100 mls/hr IV Q12H [facility] Last Admin: 01/07/20 09:27 Dose: 100 mls/hr Documented by: Doxycycline Hyclate 100 mg/ (Sodium Chloride) 100 mls @ 100 mls/hr IV Q12H [facility] Last Admin: 01/07/20 01:40 Dose: 100 mls/hr Documented by: Sodium Chloride (Normal Saline) 1,000 mls @ 999 mls/hr IV ASDIRECTED [facility] Stop: 01/04/20 15:31 Last Admin: 01/04/20 14:39 Dose: 999 mls/hr Documented by: Ketorolac Tromethamine (Toradol) 15 mg IVPUSH ONETIME ONE Stop: 01/04/20 14:24 Last Admin: 01/04/20 14:36 Dose: 15 mg Documented by: Potassium Chloride (Klor-Con M20) 40 meq PO ONETIME ONE Stop: 01/06/20 09:01 Last Admin: 01/06/20 09:40 Dose: Not Given Documented by: Prednisone (Prednisone) 20 mg PO BIDMEALS [facility] Last Admin: 01/05/20 11:04 Dose: 20 mg Documented by: - Exam Quality Assessment: No: Supplemental Oxygen General: Alert, Cooperative, No Acute Distress, Lethargic. No: Oriented HEENT: Pupils Equal Neck: JVD Lungs: Normal Respiratory Effort, Crackles (both bases L>R) Cardiovascular: Regular Rate, Regular Rhythm. No: Gallops GI/Abdominal Exam: Soft, No Distention Extremities: Pedal Edema. No: Increased Warmth Skin: Warm, Dry Wound/Incisions: Drainage (SS from anterior and medial part of the leg ) Psy/Mental Status: Alert. No: Agitated Sepsis Event Note - Evaluation Sepsis Screening Result: No Definite Risk - Focused Exam Vital Signs: Vital Signs Temp Pulse Resp BP Pulse Ox Pulse Ox 01/08/20 11:00 35.7 C L 54 L 18 107/47 L 95 01/08/20 07:00 36.2 C 64 18 144/66 H 94 L 01/08/20 03:00 36.3 C 64 18 156/64 H 96 96 - Problem List & Annotations (1) Cellulitis of right lower extremity SNOMED Code(s): 401097176 Code(s): L03.115 - CELLULITIS OF RIGHT LOWER LIMB Status: Acute Current Visit: Yes (2) Dehydration SNOMED Code(s): 40560023 Code(s): E86.0 - DEHYDRATION Status: Acute Current Visit: Yes (3) Acute hyperactive delirium due to another medical condition SNOMED Code(s): 1360880, 532572659, 119803620 Code(s): F05 - DELIRIUM DUE TO KNOWN PHYSIOLOGICAL CONDITION Status: Acute Current Visit: Yes (4) Congestive heart failure (CHF) SNOMED Code(s): 60479042 Code(s): I50.9 - HEART FAILURE, UNSPECIFIED Status: Chronic Priority: Medium Current Visit: No (5) CKD (chronic kidney disease), stage III SNOMED Code(s): 155959093 Code(s): N18.3 - CHRONIC KIDNEY DISEASE, STAGE 3 (MODERATE) Status: Chronic Current Visit: No (6) Temporal arteritis SNOMED Code(s): 564518500 Code(s): M31.6 - OTHER GIANT CELL ARTERITIS Status: Chronic Current Visit: Yes - Problem List Review Problem List Initiated/Reviewed/Updated: Yes - My Orders Last 24 Hours: My Active Orders 01/07/20 21:00 Divalproex Sodium 250 mg PO BID 01/08/20 09:00 Enoxaparin [Lovenox] 40 mg SUBCUT DAILY 01/08/20 11:20 Furosemide [Lasix] 60 mg PO ONETIME ONE 01/08/20 11:21 Wound Care [RC] DAILY 01/08/20 11:22 Communication Order [RC] DAILY 01/09/20 05:00 BASIC METABOLIC PANEL,BMP [CHEM] Timed CBC W/O DIFF,HEMOGRAM [HEME] Timed (1) 01/09/20 09:00 Furosemide [Lasix] 60 mg PO DAILY - Plan Plan:: ASSESSMENT AND PLAN - Cellulitis of right lower extremity with sepsis-this seems to be the most likely source of infection. 1 out of 4 blood culture bottles positive for staph epidermidis which is probably a contaminant. Still has a fair amount of edema and some weeping. No DVT on ultrasound. -Antibiotic coverage with doxycycline -Planning to wrap both lower legs tightly with Prashanth wrap starting today -Follow-up cultures -Saline lock IV -Pain control Possible left lower lung pneumonia-mild cough and intermittent pneumonia but chest x-ray was not real impressive. After couple days of observation I doubt that he had a pneumonia and the effusion/chest x-ray change was probably chronic. Hyperactive delirium-seems to be slowly coming around but still not back to baseline. Did sleep better last night. -Trial of Depakote -Treat infection as above -Melatonin at bedtime -Haldol for significant agitation Stage III chronic kidney disease-slight improvement in creatinine over the past couple of days. Congestive heart failure-well compensated at this time. I suspect his edema is related to the high-dose prednisone and fluid retention. -Continue medical management Temporal arteritis-he is still on high-dose prednisone. -Continue prednisone with plan to start taper 35 mgx2 weeks, decrease by 5 mg every 2 weeks Maintenance issues - - DVT prophylaxis -enoxaparin - GI prophylaxis -not indicated - Nutrition -regular diet Disposition -I would anticipate discharge to a correction facility after the hospital stay Primary care physician -Dr Eris Méndez M.D.
[2020-01-08] MEDS ORDERED: Furosemide 20 MG Tab PO ONE (11:30)
[2020-01-08] MEDS: Magnesium Hydroxide 400 MG/5 ML Susp 30 ML Cup PO PRN (12:55)
[2020-01-08] MEDS: Melatonin 3 MG Tab PO SCH (21:03)
[2020-01-08] MEDS: Doxazosin 4 MG Tab PO SCH (21:04)
[2020-01-09] MEDS: Acetaminophen 325 MG Tab PO PRN (04:00)
[2020-01-09] MEDS ORDERED: Furosemide 20 MG Tab PO SCH (09:00)
[2020-01-09] MEDS: Doxycycline 100 MG Cap PO SCH ×2 (09:06→20:04)
[2020-01-09] MEDS: Lactobacillus Rhamnosus GG (Probiotic) Cap PO SCH ×2 (09:06→20:04)
[2020-01-09] MEDS: Divalproex Sodium Delayed-Release 250 MG Tab.CR PO SCH ×2 (09:11→20:04)
[2020-01-09] MEDS: Levothyroxine 50 MCG Tab PO SCH (09:11)
[2020-01-09] MEDS: Aspirin 81 MG Tab.EC PO SCH (09:11)
[2020-01-09] MEDS: Amiodarone 200 MG Tab PO SCH (09:11)
[2020-01-09] MEDS: Enoxaparin 40 MG/0.4 ML Syringe SUBCUT SCH (09:11)
[2020-01-09] MEDS: predniSONE 20 MG, predniSONE 10 MG, predniSONE 5 MG PO SCH ×3 (09:12)
--- NOTE | 2020-01-09 15:35 | PCM.PN ---
- General Info Date of Service: 01/09/20 Subjective Update: Mr. Harmon has been stable since yesterday, cellulitis significantly improved from admission. He remains confused and is unable to provide a meaningful history concerning recent symptoms or review of systems. - Patient Data Vitals - Most Recent: Last Vital Signs Temp 97 F 01/09/20 15:00 Pulse 64 01/09/20 15:00 Resp 20 01/09/20 15:00 BP 129/68 01/09/20 15:00 Pulse Ox 94 L 01/09/20 15:00 Weight - Most Recent: 189 lb 0.001 oz I&O - Last 24 Hours: Intake & Output 01/09/20 01/09/20 01/09/20 06:59 14:59 22:59 Intake Total 420 Output Total 100 300 100 Balance -100 120 -100 Lab Results Last 24 Hours: Laboratory Results - last 24 hr 01/09/20 01/09/20 Range/Units 04:15 04:15 WBC 6.9 (4.5-11.0) K/uL RBC 3.34 L (4.30-5.90) M/uL Hgb 9.8 L (12.0-15.0) g/dL Hct 31.9 L (40.0-54.0) % MCV 96 (80-98) fL MCH 29 (27-31) pg MCHC 31 L (32-36) % Plt Count 268 (150-400) K/uL Sodium 143 (140-148) mmol/L Potassium 4.0 (3.6-5.2) mmol/L Chloride 107 (100-108) mmol/L Carbon Dioxide 28 (21-32) mmol/L Anion Gap 8.0 (5.0-14.0) mmol/L BUN 35 H (7-18) mg/dL Creatinine 1.2 (0.8-1.3) mg/dL Est Cr Clr Drug Dosing 36.96 mL/min Estimated GFR (MDRD) 57 L (>60) Glucose 101 (74-106) mg/dL Calcium 8.7 (8.5-10.1) mg/dL Phil Results Last 24 Hours: Microbiology 01/04/20 07:50 Aerobic Blood Culture - Final Blood - Venous - Iv Start Staphylococcus Epidermidis Anaerobic Blood Culture - Final NO GROWTH AFTER 5 DAYS 01/04/20 07:40 Aerobic Blood Culture - Final Blood - Arm, Right NO GROWTH AFTER 5 DAYS Anaerobic Blood Culture - Final NO GROWTH AFTER 5 DAYS Med Orders - Current: Current Medications Acetaminophen (Tylenol) 650 mg PO Q4H PRN PRN Reason: Pain (Mild 1-3)/fever Last Admin: 01/09/20 04:00 Dose: 650 mg Documented by: Acetaminophen (Tylenol) 650 mg RECTAL Q4H PRN PRN Reason: Fever Last Admin: 01/04/20 13:13 Dose: 650 mg Documented by: Albuterol (Proventil Neb Soln) 2.5 mg NEB Q4H PRN PRN Reason: Shortness Of Breath/wheezing Last Admin: 01/06/20 00:26 Dose: 2.5 mg Documented by: Amiodarone HCl (Cordarone) 200 mg PO DAILY [facility] Last Admin: 01/09/20 09:11 Dose: 200 mg Documented by: Aspirin (Halfprin) 81 mg PO DAILY [facility] Last Admin: 01/09/20 09:11 Dose: 81 mg Documented by: Divalproex Sodium (Divalproex Sodium) 250 mg PO BID [facility] Last Admin: 01/09/20 09:11 Dose: 250 mg Documented by: Doxazosin Mesylate (Cardura) 2 mg PO BEDTIME [facility] Last Admin: 01/08/20 21:04 Dose: 2 mg Documented by: Doxycycline Hyclate (Vibramycin) 100 mg PO BID [facility] Last Admin: 01/09/20 09:06 Dose: 100 mg Documented by: Enoxaparin Sodium (Lovenox) 40 mg SUBCUT DAILY [facility] Last Admin: 01/09/20 09:11 Dose: 40 mg Documented by: Furosemide 20 mg/ Furosemide (40 mg) 60 mg PO DAILY [facility] Last Admin: 01/09/20 09:12 Dose: 60 mg Documented by: Haloperidol (Haldol) 2 mg PO Q4H PRN PRN Reason: mild agitation Haloperidol Lactate (Haldol) 2 mg IVPUSH Q4H PRN PRN Reason: severe agitation Hydromorphone HCl (Dilaudid) 0.5 mg IVPUSH Q2H PRN PRN Reason: Pain Lactobacillus Rhamnosus (Culturelle) 1 cap PO BID [facility] Last Admin: 01/09/20 09:06 Dose: 1 cap Documented by: Levothyroxine Sodium (Synthroid) 50 mcg PO ACBREAKFAST [facility] Last Admin: 01/09/20 09:11 Dose: 50 mcg Documented by: Lorazepam (Ativan) 0.5 mg IVPUSH Q4H PRN PRN Reason: Nausea/Vomiting Magnesium Hydroxide (Milk Of Magnesia) 30 ml PO Q12H PRN PRN Reason: Constipation Last Admin: 01/08/20 12:55 Dose: 30 ml Documented by: Melatonin (Melatonin) 9 mg PO BEDTIME [facility] Last Admin: 01/08/20 21:03 Dose: 9 mg Documented by: Ondansetron HCl (Zofran) 4 mg IV Q6H PRN PRN Reason: Nausea/Vomiting Ondansetron HCl (Zofran Odt) 4 mg PO Q6H PRN PRN Reason: Nausea able to take PO Oxycodone HCl (Oxycodone) 5 mg PO Q4H PRN PRN Reason: Pain (moderate 4-6) Prednisone 20 mg/ Prednisone (10 mg/ Prednisone 5 mg) 35 mg PO DAILY@0800 [facility] Last Admin: 01/09/20 09:12 Dose: 35 mg Documented by: Senna/Docusate Sodium (Senna Plus) 1 tab PO BID PRN PRN Reason: Constipation Last Admin: 01/08/20 07:36 Dose: 1 tab Documented by: Discontinued Medications Divalproex Sodium (Divalproex Sodium) 250 mg PO ONETIME ONE Stop: 01/07/20 10:16 Last Admin: 01/07/20 11:19 Dose: 250 mg Documented by: Enoxaparin Sodium (Lovenox) 30 mg SUBCUT DAILY [facility] Last Admin: 01/07/20 09:01 Dose: 30 mg Documented by: Furosemide (Lasix) 60 mg PO ONETIME ONE Stop: 01/08/20 11:31 Last Admin: 01/08/20 12:56 Dose: 60 mg Documented by: Hydromorphone HCl (Dilaudid) 0.5 mg IVPUSH ONETIME ONE Stop: 01/04/20 06:46 Last Admin: 01/04/20 06:49 Dose: 0.5 mg Documented by: Ceftriaxone Sodium 1 gm/ (Sodium Chloride) 50 mls @ 100 mls/hr IV ONETIME ONE Stop: 01/04/20 09:11 Last Admin: 01/04/20 08:56 Dose: 100 mls/hr Documented by: Sodium Chloride (Normal Saline) 1,000 mls @ 500 mls/hr IV ASDIRECTED [facility] Stop: 01/04/20 11:31 Last Admin: 01/04/20 09:50 Dose: 500 mls/hr Documented by: Sodium Chloride (Normal Saline) 1,000 mls @ 100 mls/hr IV ASDIRECTED [facility] Last Admin: 01/05/20 01:49 Dose: 100 mls/hr Documented by: Ceftriaxone Sodium 1 gm/ (Sodium Chloride) 50 mls @ 100 mls/hr IV Q12H [facility] Last Admin: 01/07/20 09:27 Dose: 100 mls/hr Documented by: Doxycycline Hyclate 100 mg/ (Sodium Chloride) 100 mls @ 100 mls/hr IV Q12H [facility] Last Admin: 01/07/20 01:40 Dose: 100 mls/hr Documented by: Sodium Chloride (Normal Saline) 1,000 mls @ 999 mls/hr IV ASDIRECTED [facility] Stop: 01/04/20 15:31 Last Admin: 01/04/20 14:39 Dose: 999 mls/hr Documented by: Ketorolac Tromethamine (Toradol) 15 mg IVPUSH ONETIME ONE Stop: 01/04/20 14:24 Last Admin: 01/04/20 14:36 Dose: 15 mg Documented by: Potassium Chloride (Klor-Con M20) 40 meq PO ONETIME ONE Stop: 01/06/20 09:01 Last Admin: 01/06/20 09:40 Dose: Not Given Documented by: Prednisone (Prednisone) 20 mg PO BIDMEALS [facility] Last Admin: 01/05/20 11:04 Dose: 20 mg Documented by: - Exam Quality Assessment: DVT Prophylaxis General: Alert, Cooperative, No Acute Distress. No: Oriented Lungs: Clear to Auscultation, Normal Respiratory Effort Cardiovascular: Regular Rate, Regular Rhythm, No Murmurs GI/Abdominal Exam: Soft, Non-Tender, No Organomegaly, No Distention Extremities: Non-Tender, No Pedal Edema Sepsis Event Note - Evaluation Sepsis Screening Result: No Definite Risk - Focused Exam Vital Signs: Vital Signs Temp Pulse Resp BP Pulse Ox 01/09/20 15:00 97 F 64 20 129/68 94 L 01/09/20 11:00 96.7 F L 57 L 16 99/56 L 98 01/09/20 07:00 96.5 F L 64 16 133/55 L 95 - Problem List Review Problem List Initiated/Reviewed/Updated: Yes - My Orders Last 24 Hours: My Active Orders 01/10/20 05:00 BASIC METABOLIC PANEL,BMP [CHEM] Timed - Plan Plan:: ASSESSMENT AND PLAN - Cellulitis of right lower extremity with sepsis-this seems to be the most likely source of infection. 1 out of 4 blood culture bottles positive for staph epidermidis which is probably a contaminant. Still has a fair amount of edema and some weeping. No DVT on ultrasound. Good improvement from admission -Antibiotic coverage with doxycycline -wrap both lower legs tightly with Prashanth wrap -Follow-up cultures -Pain control Possible left lower lung pneumonia-mild cough and intermittent pneumonia but chest x-ray was not real impressive. After couple days of observation I doubt that he had a pneumonia and the effusion/chest x-ray change was probably chronic. Hyperactive delirium-seems to be slowly coming around but still not back to baseline. -Trial of Depakote -Treat infection as above -Melatonin at bedtime -Haldol for significant agitation Stage III chronic kidney disease-creatinine stable Congestive heart failure-well compensated at this time. I suspect his edema is related to the high-dose prednisone and fluid retention. -Continue medical management Temporal arteritis-he is still on high-dose prednisone. -Continue prednisone with plan to start taper 35 mgx2 weeks, decrease by 5 mg ev bety 2 weeks Maintenance issues - - DVT prophylaxis -enoxaparin - GI prophylaxis -not indicated - Nutrition -regular diet Disposition -I would anticipate discharge to a [facility] facility after the hospital stay Primary care physician -Dr Eris Haynes
[2020-01-09] MEDS: Magnesium Hydroxide 400 MG/5 ML Susp 30 ML Cup PO PRN (18:08)
[2020-01-09] MEDS: Melatonin 3 MG Tab PO SCH (20:04)
[2020-01-09] MEDS: Doxazosin 4 MG Tab PO SCH (22:46)
[2020-01-10 07:42] VITALS: BP 145/60; PULSE 60
[2020-01-10] MEDS ORDERED: Furosemide 40 MG Tab PO SCH (09:00)
--- NOTE | 2020-01-10 09:26 | PCM.DCSUM1 ---
Discharge Summary - Hospital Course Brief History: Mr. Harmon is an 89-year-old gentleman who was admitted through the emergency department with progressive weakness and falls secondary to increase in peripheral edema and lower leg cellulitis. - Discharge Data Discharge Date: 01/10/20 Discharge Disposition: Home, Self-Care 01 Condition: Fair - Referral to Home Health Primary Care Physician: Eris Haynes MD - Discharge Diagnosis/Problem(s) (1) Acute hyperactive delirium due to another medical condition SNOMED Code(s): 0810167, [id number], 852095090 ICD Code: F05 - DELIRIUM DUE TO KNOWN PHYSIOLOGICAL CONDITION Status: Acute Current Visit: Yes (2) Cellulitis of right lower extremity SNOMED Code(s): 969479763 ICD Code: L03.115 - CELLULITIS OF RIGHT LOWER LIMB Status: Acute Current Visit: Yes (3) Dehydration SNOMED Code(s): 97241467 ICD Code: E86.0 - DEHYDRATION Status: Acute Current Visit: Yes (4) Fall in elderly patient SNOMED Code(s): 791005325 ICD Code: R29.6 - REPEATED FALLS Status: Chronic Current Visit: Yes (5) Temporal arteritis SNOMED Code(s): 813633378 ICD Code: M31.6 - OTHER GIANT CELL ARTERITIS Status: Chronic Current Visit: Yes - Patient Summary/Data Consults: Consultations 01/05/20 07:00 PT Evaluation and Treatment [CONS] Routine Please Evaluate and Treat. PT Reason for Consult: Strengthening This query below is only for informational purposes and is not editable. Hospital Course: Mr. Harmon presented to the emergency room by ambulance. We believe he was able to call the ambulance but at this time he is not able to provide any usable history. His last known well as not known to us. He is not able to respond to any questions with any sort of understandable speech. He appears restless but overall appears comfortable. He seemed to indicate to the emergency room physician earlier in the morning that he had some hip pain but at the time of my examination he is not reporting any pain. Work-up in the emergency room has revealed mild leukocytosis and significant evidence for dehydration. Lactic acid is mildly elevated probably from dehydration. He may have an early cellulitis on his right leg. Urine is mildly suggestive of infection. Chest x- ray had a possible left lower lung effusion or infiltrate. He has received antibiotics and cultures have been obtained. He is receiving some fluids. He is going to be admitted for management of presumed cellulitis and dehydration. Because of his hyperactive delirium he was started on Depakote 250 mg twice daily and delirium slowly resolved thereafter. 4 blood culture bottles became positive for staph epidermidis which was felt to represent a likely contaminant. He was transitioned to oral antibiotic therapy with doxycycline and also received an appropriate course of antibiotic therapy for urinary tract infection. Initially he received IV fluids these were discontinued and he received increased doses of furosemide for diuresis. His peripheral edema had improved significantly by the time of discharge but had not totally resolved. He also received bilateral Prashanth wraps to both lower extremities for management of his edema. By the time of discharge he was confused but there was no further evidence of active delirium. [facility] and Occupational Therapy. He will receive an additional 4 days of oral doxycycline for management of his cellulitis which had appeared to essentially have resolved by the time of discharge. Activity will be as tolerated and he will be on a 2 g sodium diet. His dose of prednisone for management of temporal arteritis was decreased to 30 mg daily during his hospital stay. He will remain on this dose for an additional 2 weeks at which time sedimentation rate will be obtained and if within normal range further tapering could proceed. - Patient Instructions Diet: Low Sodium Activity: As Tolerated Other/Special Instructions: Please obtain a BMP in 1 week and a sedimentation rate in 2 weeks. Daily physical therapy and Occupational Therapy while at the [facility]. - Discharge Plan *PRESCRIPTION DRUG MONITORING PROGRAM REVIEWED*: Not Applicable *COPY OF PRESCRIPTION DRUG MONITORING REPORT IN PATIENT NAYELI: Not Applicable Prescriptions/Med Rec: Divalproex Sodium 250 mg PO BID #60 tab.cr Furosemide [Lasix] 40 mg PO DAILY #30 tablet predniSONE 30 mg PO DAILY@0800 #60 tablet Doxycycline [Vibramycin] 100 mg PO BID #8 cap Home Medications: Home Meds Simvastatin [Zocor] 40 mg PO DAILY 04/12/14 [History] Doxazosin [Cardura] 2 mg PO BEDTIME 02/22/16 [History] Aspirin [Lo-Dose Aspirin EC] 81 mg PO DAILY 06/03/17 [History] Amiodarone [Cordarone] 200 mg PO DAILY 07/31/17 [History] Docusate Calcium [Surfak] 240 mg PO DAILY 07/28/19 [History] Meclizine HCl 25 mg PO DAILY 07/28/19 [History] Lutein/Zeaxanthin [Lutein-Zeaxanthin 25-5 mg Sfgl] 1 each PO DAILY 07/29/19 [History] Acetaminophen [Tylenol] 650 mg PO Q6HR PRN 09/30/19 [History] Levothyroxine [Synthroid] 50 mcg PO ACBREAKFAST 09/30/19 [History] Divalproex Sodium 250 mg PO BID #60 tab.cr 01/10/20 [Rx] Doxycycline [Vibramycin] 100 mg PO BID #8 cap 01/10/20 [Rx] Furosemide [Lasix] 40 mg PO DAILY #30 tablet 01/10/20 [Rx] predniSONE 30 mg PO DAILY@0800 #60 tablet 01/10/20 [Rx] Referrals: Eris Haynes MD [Primary Care Provider] - - Discharge Summary/Plan Comment DC Time >30 min.: No - Patient Data Vitals - Most Recent: Last Vital Signs Temp 98.4 F 01/10/20 07:37 Pulse 60 01/10/20 07:37 Resp 12 01/10/20 07:37 BP 145/60 H 01/10/20 07:37 Pulse Ox 97 01/10/20 07:37 Weight - Most Recent: 189 lb 0.001 oz I&O - Last 24 hours: Intake & Output 01/09/20 01/10/20 01/10/20 22:59 06:59 14:59 Intake Total 360 Output Total 400 Balance -40 Lab Results - Last 24 hrs: Laboratory Results - last 24 hr 01/10/20 Range/Units 04:05 Sodium 141 (140-148) mmol/L Potassium 4.0 (3.6-5.2) mmol/L Chloride 105 (100-108) mmol/L Carbon Dioxide 28 (21-32) mmol/L Anion Gap 7.6 (5.0-14.0) mmol/L BUN 40 H (7-18) mg/dL Creatinine 1.3 (0.8-1.3) mg/dL Est Cr Clr Drug Dosing 34.12 mL/min Estimated GFR (MDRD) 52 L (>60) Glucose 102 (74-106) mg/dL Calcium 8.9 (8.5-10.1) mg/dL [facility] Results - Last 24 hrs: Microbiology 01/04/20 07:50 Aerobic Blood Culture - Final Blood - Venous - Iv Start Staphylococcus Epidermidis Anaerobic Blood Culture - Final NO GROWTH AFTER 5 DAYS 01/04/20 07:40 Aerobic Blood Culture - Final Blood - Arm, Right NO GROWTH AFTER 5 DAYS Anaerobic Blood Culture - Final NO GROWTH AFTER 5 DAYS Med Orders - Current: Current Medications Acetaminophen (Tylenol) 650 mg PO Q4H PRN PRN Reason: Pain (Mild 1-3)/fever Last Admin: 01/09/20 04:00 Dose: 650 mg Documented by: Acetaminophen (Tylenol) 650 mg RECTAL Q4H PRN PRN Reason: Fever Last Admin: 01/04/20 13:13 Dose: 650 mg Documented by: Albuterol (Proventil Neb Soln) 2.5 mg NEB Q4H PRN PRN Reason: Shortness Of Breath/wheezing Last Admin: 01/06/20 00:26 Dose: 2.5 mg Documented by: Amiodarone HCl (Cordarone) 200 mg PO DAILY [facility] Last Admin: 01/09/20 09:11 Dose: 200 mg Documented by: Aspirin (Halfprin) 81 mg PO DAILY [facility] Last Admin: 01/09/20 09:11 Dose: 81 mg Documented by: Divalproex Sodium (Divalproex Sodium) 250 mg PO BID [facility] Last Admin: 01/09/20 20:04 Dose: 250 mg Documented by: Doxazosin Mesylate (Cardura) 2 mg PO BEDTIME [facility] Last Admin: 01/09/20 22:46 Dose: Not Given Documented by: Doxycycline Hyclate (Vibramycin) 100 mg PO BID [facility] Last Admin: 01/09/20 20:04 Dose: 100 mg Documented by: Enoxaparin Sodium (Lovenox) 40 mg SUBCUT DAILY [facility] Last Admin: 01/09/20 09:11 Dose: 40 mg Documented by: Furosemide (Lasix) 40 mg PO DAILY [facility] Haloperidol (Haldol) 2 mg PO Q4H PRN PRN Reason: mild agitation Haloperidol Lactate (Haldol) 2 mg IVPUSH Q4H PRN PRN Reason: severe agitation Hydromorphone HCl (Dilaudid) 0.5 mg IVPUSH Q2H PRN PRN Reason: Pain Lactobacillus Rhamnosus (Culturelle) 1 cap PO BID [facility] Last Admin: 01/09/20 20:04 Dose: 1 cap Documented by: Levothyroxine Sodium (Synthroid) 50 mcg PO ACBREAKFAST [facility] Last Admin: 01/09/20 09:11 Dose: 50 mcg Documented by: Lorazepam (Ativan) 0.5 mg IVPUSH Q4H PRN PRN Reason: Nausea/Vomiting Magnesium Hydroxide (Milk Of Magnesia) 30 ml PO Q12H PRN PRN Reason: Constipation Last Admin: 01/09/20 18:08 Dose: 30 ml Documented by: Melatonin (Melatonin) 9 mg PO BEDTIME [facility] Last Admin: 01/09/20 20:04 Dose: 9 mg Documented by: Ondansetron HCl (Zofran) 4 mg IV Q6H PRN PRN Reason: Nausea/Vomiting Ondansetron HCl (Zofran Odt) 4 mg PO Q6H PRN PRN Reason: Nausea able to take PO Oxycodone HCl (Oxycodone) 5 mg PO Q4H PRN PRN Reason: Pain (moderate 4-6) Prednisone 20 mg/ Prednisone (10 mg/ Prednisone 5 mg) 35 mg PO DAILY@0800 [facility] Last Admin: 01/09/20 09:12 Dose: 35 mg Documented by: Senna/Docusate Sodium (Senna Plus) 1 tab PO BID PRN PRN Reason: Constipation Last Admin: 01/09/20 18:08 Dose: 1 tab Documented by: Discontinued Medications Divalproex Sodium (Divalproex Sodium) 250 mg PO ONETIME ONE Stop: 01/07/20 10:16 Last Admin: 01/07/20 11:19 Dose: 250 mg Documented by: Enoxaparin Sodium (Lovenox) 30 mg SUBCUT DAILY [facility] Last Admin: 01/07/20 09:01 Dose: 30 mg Documented by: Furosemide (Lasix) 60 mg PO ONETIME ONE Stop: 01/08/20 11:31 Last Admin: 01/08/20 12:56 Dose: 60 mg Documented by: Furosemide 20 mg/ Furosemide (40 mg) 60 mg PO DAILY [facility] Last Admin: 01/09/20 09:12 Dose: 60 mg Documented by: Hydromorphone HCl (Dilaudid) 0.5 mg IVPUSH ONETIME ONE Stop: 01/04/20 06:46 Last Admin: 01/04/20 06:49 Dose: 0.5 mg Documented by: Ceftriaxone Sodium 1 gm/ (Sodium Chloride) 50 mls @ 100 mls/hr IV ONETIME ONE Stop: 01/04/20 09:11 Last Admin: 01/04/20 08:56 Dose: 100 mls/hr Documented by: Sodium Chloride (Normal Saline) 1,000 mls @ 500 mls/hr IV ASDIRECTED [facility] Stop: 01/04/20 11:31 Last Admin: 01/04/20 09:50 Dose: 500 mls/hr Documented by: Sodium Chloride (Normal Saline) 1,000 mls @ 100 mls/hr IV ASDIRECTED [facility] Last Admin: 01/05/20 01:49 Dose: 100 mls/hr Documented by: Ceftriaxone Sodium 1 gm/ (Sodium Chloride) 50 mls @ 100 mls/hr IV Q12H [facility] Last Admin: 01/07/20 09:27 Dose: 100 mls/hr Documented by: Doxycycline Hyclate 100 mg/ (Sodium Chloride) 100 mls @ 100 mls/hr IV Q12H [facility] Last Admin: 01/07/20 01:40 Dose: 100 mls/hr Documented by: Sodium Chloride (Normal Saline) 1,000 mls @ 999 mls/hr IV ASDIRECTED [facility] Stop: 01/04/20 15:31 Last Admin: 01/04/20 14:39 Dose: 999 mls/hr Documented by: Ketorolac Tromethamine (Toradol) 15 mg IVPUSH ONETIME ONE Stop: 01/04/20 14:24 Last Admin: 01/04/20 14:36 Dose: 15 mg Documented by: Potassium Chloride (Klor-Con M20) 40 meq PO ONETIME ONE Stop: 01/06/20 09:01 Last Admin: 01/06/20 09:40 Dose: Not Given Documented by: Prednisone (Prednisone) 20 mg PO BIDMEALS [facility] Last Admin: 01/05/20 11:04 Dose: 20 mg Documented by: - Exam General: Reports: Alert, Cooperative, Mild Distress. Denies: Oriented Lungs: Reports: Clear to Auscultation, Normal Respiratory Effort Cardiovascular: Reports: Regular Rate, Regular Rhythm, No Murmurs GI/Abdominal Exam: Soft, Non-Tender, No Organomegaly, No Distention Extremities: Non-Tender, Pedal Edema *Q Meaningful Use (DIS) - VTE *Q VTE Mechanical Contraindications *Q: Bilateral Lower Edema
[2020-01-10] MEDS: Lactobacillus Rhamnosus GG (Probiotic) Cap PO SCH (09:39)
[2020-01-10] MEDS: Doxycycline 100 MG Cap PO SCH (09:39)
[2020-01-10] MEDS: Aspirin 81 MG Tab.EC PO SCH (09:39)
[2020-01-10] MEDS: Levothyroxine 50 MCG Tab PO SCH (09:39)
[2020-01-10] MEDS: predniSONE 20 MG, predniSONE 10 MG, predniSONE 5 MG PO SCH ×3 (09:39)
[2020-01-10] MEDS: Amiodarone 200 MG Tab PO SCH (09:40)
[2020-01-10] MEDS: Divalproex Sodium Delayed-Release 250 MG Tab.CR PO SCH (09:40)
[2020-01-10] MEDS: Enoxaparin 40 MG/0.4 ML Syringe SUBCUT SCH (09:47)
[2020-01-11] MEDS ORDERED: Furosemide 20 MG Tab PO SCH (09:00)
== END 2020-01-10 12:11 | disposition home or self-care (01) | DRG 871 ==
LOC: JP.ED 06:10 → JP.MS 09:29
PROVIDERS: ADMIT Internal Medicine; ATTEND Hospitalist
DX: A41.9 Sepsis, unspecified organism (principal); W19.XXXA Unspecified fall, initial encounter; H91.93 Unspecified hearing loss, bilateral; H54.7 Unspecified visual loss; I25.10 Atherosclerotic heart disease of native coronary artery without angina pectoris; J18.9 Pneumonia, unspecified organism; L03.115 Cellulitis of right lower limb; F05 Delirium due to known physiological condition; I13.0 Hypertensive heart and chronic kidney disease with heart failure and stage 1 through stage 4 chronic kidney disease, or unspecified chronic kidney disease; N39.0 Urinary tract infection, site not specified; E86.0 Dehydration; R29.6 Repeated falls; M31.6 Other giant cell arteritis; I48.91 Unspecified atrial fibrillation; E78.00 Pure hypercholesterolemia, unspecified; I50.9 Heart failure, unspecified; Z95.5 Presence of coronary angioplasty implant and graft; Z96.659 Presence of unspecified artificial knee joint; M54.9 Dorsalgia, unspecified; G89.29 Other chronic pain; E03.9 Hypothyroidism, unspecified; M19.90 Unspecified osteoarthritis, unspecified site; G47.30 Sleep apnea, unspecified; J45.909 Unspecified asthma, uncomplicated; N18.3 Chronic kidney disease, stage 3 (moderate); Z88.2 Allergy status to sulfonamides; Z88.1 Allergy status to other antibiotic agents; Z79.82 Long term (current) use of aspirin; Z79.890 Hormone replacement therapy; Z79.899 Other long term (current) drug therapy; Z79.52 Long term (current) use of systemic steroids; Z86.73 Personal history of transient ischemic attack (TIA), and cerebral infarction without residual deficits; Z87.891 Personal history of nicotine dependence
CPT/HCPCS: 36415; 70450; 71045 ×2; 72125; 72192; 73560 ×2; 80053; 81001; 82550; 83605; 85025; 87040 ×2; 87077; 87086; 87186; 96365; 96375; 99285; J0696; J1170; J7050; 80048; 83735; 85027; 93971-RT; 94640; 97110-GP; 97116-GP; 97162-GP; 97530-GP; 99284; A9270-GY; J1650; J1885; J3490; J7030; J7512